=== PATIENT | male | born 1955 | race Caucasian/White ===

== ENCOUNTER → 2017-10-17 09:30 | Outpatient (CLI) | payer SELFPAY | PROVIDERS: Family Provider Family Medicine; PCP Family Medicine; Visit Provider Urology | DX: R97.20 Elevated prostate specific antigen [PSA] (principal) | CPT/HCPCS: 36415; 84153 ==

== ENCOUNTER → 2017-11-17 08:03 | Outpatient (CLI) | payer SELFPAY ==
--- NOTE | 2017-11-17 | IMM_PTH ---
PATIENT: HUEY LEMONS LOC: [facility] U#:[id number] AGE/SX: 70/M ROOM: RE11/17/[address]: Dr. Paulo Martin MD : 1955 BED: DIS: SPEC #: [id number] RECD: 11/21/17 11:57 STATUS: SAULO REJulio #: [id number] NERISSA: 11/17/17 00:[address]: Paulo Martin DEPT: IMMUNOHISTOCHEMISTRY RECD BY: Rosanne Parker ENTERED: 11/21/17 11:58 SP TYPE: IMMUNO OTHR DR: Dr. Roderick Saleh MD Tissues: A - PROSTATE RIGHT Procedures: P40 (add) 34BE12 (initial) PHYSICIAN & INSTITUTION [place] [id number] SPECIMEN INFORMATION: Tissue Source: A - Right prostate, apex, core biopsy Clinical Info: Elevated PSA Specimen Number: [id number] CPT code: 60463, 34880 METHODOLOGY: Deparaffinized sections of prefer/formalin-fixed tissue or PAP/DQ stained slides are incubated with monoclonal/polyclonal antibodies/oligonucleotide probes. Localization is made via biotin free immunoperoxidase method. Appropriate controls are performed and reacted as expected. Results on target cell population are indicated in the following table: RESULTS: ANTIBODY / CLONE RESULT Block A P40 (BC28) negative 34BE12 (34BE12) negative These tests were developed and their performance characteristics determined by [facility]. They may not have been cleared or approved by the U.S. Food and Drug Administration. The FDA has determined that such clearance or approval is not necessary. INTERPRETATION: A. Right prostate, apex, core biopsy: A minute focus of adenocarcinoma. SJ:lance 11/22/17
--- NOTE | 2017-11-17 11:45 | PROSBIL_PTH ---
PATIENT: HUEY LEMONS LOC: [facility] U#:[id number] AGE/SX: 70/M ROOM: RE11/17/[address]: Dr. Paulo Martin MD : 1955 BED: DIS: SPEC #: [id number] RECD: 11/17/17 18:27 STATUS: SAULO LOU #: [id number] NERISSA: 11/17/17 11:[address]: Paulo Martin DEPT: SURGICAL PATHOLOGY RECD BY: Juan J Acosta ENTERED: 11/18/17 09:29 SP TYPE: PROST BX GERMAN DR: Dr. Roderick Saleh MD Tissues: A - PROSTATE RIGHT B - PROSTATE RIGHT C - PROSTATE RIGHT D - PROSTATE LEFT E - PROSTATE LEFT F - PROSTATE LEFT Procedures: PROSTATE BX HEADER OPERATION: Prostate biopsy PRE-OP DIAGNOSIS: Elevated PSA TISSUE SUBMITTED: A - Right apex, B - Right mid, C - Right base, D - Left apex, E - Left mid, F - Left base MICROSCOPIC DIAGNOSIS A. Right prostate, apex, core biopsy: A minute focus of adenocarcinoma: Josette grade: 3+3=6 Number of cores involved: 1 out of 2 Proportion of tissue involved: <5% Perineural invasion: Not identified. Greatest tumor length: <1 mm Focal chronic inflammation and minimal acute inflammation. See comment. B. Right prostate, mid, core biopsy: Prostatic tissue, negative for malignancy. C. Right prostate, base, core biopsy: Prostatic tissue, negative for malignancy. Focal chronic inflammation. D. Left prostate, apex, core biopsy: Prostatic tissue, negative for malignancy. Focal chronic inflammation. E. Left prostate, mid, core biopsy: Prostatic tissue, negative for malignancy. Focal chronic inflammation. F. Left prostate, base, core biopsy: Prostatic tissue, negative for malignancy. Focal chronic inflammation. SJ:lance 11/21/17 COMMENT A. Immunohistochemistry ([id number]) supports the above diagnosis. MICROSCOPIC DESCRIPTION Slides are reviewed. GROSS DESCRIPTION A - Received is one container designated prostate, right apex. The specimen consists of two elongated fragments of light louis-white soft tissue each measuring 1.5 cm in length and 0.1 cm in diameter. The specimen is totally submitted in one cassette. B - Received is one container designated prostate, right mid. The specimen consists of two elongated fragments of light louis-white soft tissue each measuring 1.5 cm in length and 0.1 cm in diameter. The specimen is totally submitted in one cassette. C - Received is one container designated prostate, right base. The specimen consists of two elongated fragments of light louis-white soft tissue each measuring 1.5 cm in length and 0.1 cm in diameter. The specimen is totally submitted in one cassette. D - Received is one container designated prostate, left apex. The specimen consists of two elongated fragments of light louis-white soft tissue each measuring 1.5 cm in length and 0.1 cm in diameter. The specimen is totally submitted in one cassette. E - Received is one container designated prostate, left mid. The specimen consists of two elongated fragments of light louis-white soft tissue each measuring 1 cm in length and 0.1 cm in diameter. The specimen is totally submitted in one cassette. F - Received is one container designated prostate, left base. The specimen consists of two elongated fragments of light louis-white soft tissue each measuring 1.5 cm in length and 0.1 cm in diameter. The specimen is totally submitted in one cassette. / AM:lance 11/18/17 TC:0 CPT: 43436 x6
== END ==
LOC: LAB 11-18 08:08 → LABSPEC 11-18 08:08
PROVIDERS: Family Provider Family Medicine; PCP Family Medicine; Visit Provider Urology
DX: R97.20 Elevated prostate specific antigen [PSA] (principal)
CPT/HCPCS: 88305; 88341; 88342; G0416

== ENCOUNTER → 2019-01-01 08:20 | Outpatient (CLI) | payer SELFPAY ==
--- NOTE | 2019-01-01 08:48 | RAD_ITS ---
STUDY: X-RAY - RIGHT KNEE REASON FOR EXAM: Male, 63 years old. Knee pain and swelling TECHNIQUE: 4 view(s) of the knee. COMPARISON: None. FINDINGS: The knee is intact and located. There is mild decrease in medial compartment joint space. There is mild periarticular marginal osteophyte formation in the weightbearing compartments, moderate in the patellofemoral compartment. Mineralization is normal. There is a joint effusion. Soft tissues are otherwise unremarkable. RAD/Knee 4 or More Views IMPRESSION: Mild degenerative joint disease. Electronically Signed: Rachna Mendoza, at 16:14 EDT Tel , Service support ,
--- NOTE | 2019-01-01 08:48 | RAD_ITS ---
STUDY: X-RAY - CERVICAL SPINE REASON FOR EXAM: Male, 63 years old. History of fall 1996 Pain TECHNIQUE: 9 view(s) of the cervical spine were obtained. COMPARISON: None FINDINGS: There are degenerative changes of the anterior atlantoaxial articulation. The odontoid not fully visualized on the open-mouth views. Normal cervical lordosis. C5 C6 C6 C7 there is disc space narrowing spondylosis. There is mild narrowing of the right neural foramen at the level of C5-C6 there is facet arthropathy. Flexion extension views are provided with this series. There is no visualized loss of alignment with the flexion extension views provided. The soft tissue structures are unremarkable. RAD/Cerv Spine Obl/Flex/Ext Comp IMPRESSION: Multilevel level degenerative change especially at the level of C5-C6. No visualized radiographic evidence of instability with flexion and extension. Electronically Signed: Anneliese Wadsworth MD at 16:22 EDT Tel , Service support ,
--- NOTE | 2019-01-01 08:48 | RAD_ITS ---
STUDY: X-RAY - LUMBOSACRAL SPINE REASON FOR EXAM: Male, 63 years old. Fall from ladder 1995. Lower back pain and right leg pain. Right leg swelling. TECHNIQUE: 7 views including flexion and extension weightbearing views. COMPARISON: None FINDINGS: No acute intra-abdominal process is evident. Moderate distributed stool burden of large bowel unlikely to reflect constipation. Normal small bowel pattern. No significant degenerative features of the SI joints. Very slight lumbar levoscoliosis. Normal lordosis. Osteopenia. Normal vertebral body height and alignment to the neutral position. Flexion, no change in alignment, no abnormal motion. Extension, no change in alignment, no abnormal motion. Minimal disc degenerative features at L1-L2. Mild mid to low lumbar facet arthropathy L3-S1. RAD/L/S Spine w Bend Min 6 Vw IMPRESSION: Mild spondylosis. No evidence of abnormal spinal motion on flexion and extension views. Normal alignment in the neutral position. Electronically Signed: Juan J De La Garza MD at 16:18 EDT Tel , Service support ,
--- NOTE | 2019-01-01 08:50 | MRI_ITS ---
STUDY: MRI CERVICAL SPINE WITHOUT CONTRAST REASON FOR EXAM: Male, 63 years old. Left facial pain in right arm numbness. TECHNIQUE: Standardized fat and water weighted pulse sequences were obtained in the sagittal and axial planes. COMPARISON: None FINDINGS: Normal foramen magnum and brainstem-cervical cord junction. Normal craniovertebral junction. Normal anterior atlantoaxial articulation. Normal odontoid process. Normal cervical lordosis. Normal vertebral bodies and posterior osseous elements. C2-3: Normal endplates. Normal disc height, signal and morphology. Normal central canal and intervertebral neural foramina. C3-4: Normal endplates. Normal disc height, signal and morphology. Normal central canal and intervertebral neural foramina. C4-5: Disc desiccation and mild decreased disc space is noted. There is uncovertebral joint arthropathy resulting in moderate bilateral foraminal narrowing with small disc osteophyte complex. C5-6: Normal endplates. Normal disc height, signal and morphology. Normal central canal and intervertebral neural foramina. C6-7: Normal endplates. Normal disc height, signal and morphology. Normal central canal and intervertebral neural foramina. C7-T1: Normal endplates. Normal disc height, signal and morphology. Normal central canal and intervertebral neural foramina. Normal cervical cord. There is diffuse diffuse multilevel lymph nodes bilaterally predominantly within the level 5 region as seen on series 7 image 141 largest lymph node measuring 1.1 x 1.7 cm axially. There is lack of flow related enhancement within the left vertebral artery. MRI/Spine Cervical (Routine) IMPRESSION: 1. C5-6 mild degenerative change with uncovertebral joint arthropathy resulting in moderate bilateral foraminal narrowing, clinically correlate for C4 V nerve root radiculopathy. Otherwise no significant spinal canal narrowing or foraminal narrowing. 2. Diffuse cervical lymphadenopathy, further evaluation may be obtained with contrast CT neck and clinical correlation is underlying infiltrative neoplastic process is not excluded. 3. Lack of flow related enhancement within the left vertebral artery suggestive of stenosis versus occlusion, further evaluation may be obtained with cross-sectional MRA/CTA analysis. Electronically Signed: Les Hernandez DO at 11:31 EDT , Service support ,
--- NOTE | 2019-01-01 08:50 | MRI_ITS ---
STUDY: MRI LUMBAR SPINE WITHOUT CONTRAST REASON FOR EXAM: Male, 63 years old. Back pain radiating down the right leg. TECHNIQUE: Standardized fat and water weighted pulse sequences were obtained in the sagittal and axial planes. COMPARISON: None FINDINGS: T12-L1: Normal endplates. Normal disc height, hydration and morphology. Normal bilateral facet joints. Normal central canal and bilateral lateral recesses. Normal bilateral intervertebral neural foramina. Normal lumbar lordosis. There is no substantial scoliosis. Normal conus medullaris that terminates at the L1-2. L1-2: Mild decreased disc space and disc desiccation at this level with no significant spinal canal narrowing or foraminal narrowing. L2-3: Normal endplates. Normal disc height, hydration and morphology. Normal bilateral facet joints. Normal central canal and bilateral lateral recesses. Normal bilateral intervertebral neural foramina. L3-4: Normal endplates. Normal disc height, hydration and morphology. Normal bilateral facet joints. Normal central canal and bilateral lateral recesses. Normal bilateral intervertebral neural foramina. L4-5: Normal endplates. Normal disc height, hydration and morphology. Normal bilateral facet joints. Normal central canal and bilateral lateral recesses. Normal bilateral intervertebral neural foramina. L5-S1: Normal endplates. Normal disc height, hydration and morphology. Normal bilateral facet joints. Normal central canal and bilateral lateral recesses. Normal bilateral intervertebral neural foramina. Normal visualized sacral ala. Normal visualized paraspinous soft tissue structures. MRI/Spine Lumbar (Routine) IMPRESSION: No evidence of significant disc space loss, disc bulge, spinal canal narrowing or foraminal narrowing. Electronically Signed: Les Hernandez DO at 11:22 EDT , Service support ,
--- NOTE | 2019-01-01 09:34 | RAD_ITS ---
STUDY: X-RAY - ORBITS REASON FOR EXAM: Male, 63 years old. This study is being performed as a clearance examination for exclusion of orbital metal, prior to the performance of an MRI examination. TECHNIQUE: view(s) of the orbits were obtained. COMPARISON: None. FINDINGS: Normal bilateral orbits without a metallic orbital foreign body. Normal visualized facial bones. Normal paranasal sinuses. The soft tissue structures are unremarkable. RAD/Orbits for Foreign Body IMPRESSION: No demonstrated metallic orbital foreign body. The patient is cleared for an MRI examination. Electronically Signed: Jesenia Lawson, at 11:36 EDT Tel , Service support ,
== END ==
PROVIDERS: Family Provider Family Medicine; PCP Family Medicine; Referring Provider Family Medicine; Visit Provider Family Medicine
DX: M54.2 Cervicalgia (principal); M17.11 Unilateral primary osteoarthritis, right knee; M54.5 Low back pain
CPT/HCPCS: 70030; 72052; 72114; 72141; 72148; 73564

== ENCOUNTER 2020-02-08 09:28 | Day surgery (SDC) | payer SELFPAY ==
--- NOTE | 2020-02-07 10:06 | EKG12_ITS ---
Test Reason : PRE-OP Blood Pressure : / mmHG Vent. Rate : 075 BPM Atrial Rate : 075 BPM P-R Int : 168 ms QRS Dur : 086 ms QT Int : 390 ms P-R-T Axes : 047 -02 020 degrees QTc Int : 435 ms Normal sinus rhythm Normal ECG Confirmed by ANGELITO DON ([id number]), editor map JACKIE LEMONS ([id number]) on 02/08/2020 2:44:02 PM Referred By: Paulo Martin Confirmed By:ANGELITO DON
[2020-02-07 10:10] LABS: Hematocrit 36.9 % (40-54); Hemoglobin 11.7 g/dL (13.0-16.5); Mean Corp Hgb Conc 31.7 g/dL (32-36); Mean Corpuscular Hgb 29.6 pg (27.0-32.0); Mean Corpuscular Volume 93.4 fL (80-94); Mean Platelet Vol. 10.1 fl (6.2-12.0); POSITIVE COUNT YES; Platelet Count 179 K/mm3 (150-450); RBC Distribution Width CV 15.2 % (11.6-14.6); RBC Distribution Width SD 51.1 fl (35.1-43.9); Red Blood Count 3.95 M/mm3 (4.6-6.2)
[2020-02-07 10:14] LABS: Scan Indicated on CBC? Y/N YES- FLAGS NOTED
[2020-02-07 10:26] LABS: International Normalized Ratio 1.3; Partial Thromboplast Time 25.3 Seconds (24.1-36.2); Prothrombin Time (Protime)PT. 15.6 SECONDS (11.7-14.9)
[2020-02-07 10:53] LABS: AST(SGOT) 9 U/L (15-37); Alanine Aminotransfer ALT/SGPT 16 U/L (16-61); Albumin, Serum 3.4 g/dL (3.2-5.0); Alkaline Phosphatase 83 U/L (45-117); Anion Gap 3 (5-15); BUN 20 mg/dL (7-18); BUN/Creat Ratio 26.5 RATIO (10-20); Bilirubin, Direct 0.19 mg/dL (0.00-0.30); Calcium,Total 8.2 mg/dL (8.5-10.1); Chloride 107 mmol/L (98-107); Creatinine, Serum 0.75 mg/dL (0.70-1.30); EST Glomerular Filtration Rate 111 mL/min (>60); Est Glom Filt Rate - Afr Amer 134 mL/min (>60); Globulin 3.6 g/dL (2.2-4.2); Glucose 89 mg/dL (74-106); Potassium 4.1 mmol/L (3.5-5.1); Sodium Level 139 mmol/L (136-145)
[2020-02-07 11:39] LABS: White Blood Count 45.1 K/mm3 (4.4-11.0)
[2020-02-08] VITALS (12 sets, daily range): BP systolic 116–153; BP diastolic 72–95; PULSE 58–105; RESP 14–18; TEMP 36.6–37.3; O2SAT 90–100; BMI 31.4
--- NOTE | 2020-02-08 | PROS_PTH ---
PATIENT: HUEY LEMONS LOC: [facility] U#:[id number] AGE/SX: 64/M ROOM: RE02/08/[address]: Dr. Paulo Martin MD : 1955 BED: DIS: 02/09/2020 SPEC #: [id number] RECD: 02/08/20 14:10 STATUS: SAULO LOU #: [id number] NERISSA: 02/08/20 00:[address]: Paulo Martin DEPT: SURGICAL PATHOLOGY RECD BY: Wily Pena ENTERED: 02/11/20 08:18 SP TYPE: TURP GERMAN DR: Dr. Roderick Saleh MD Tissues: Prostate, NOS Procedures: Surgery Specimen Level IV HEADER OPERATION: Cysto, TUR prostate, [employer] PRE-OP DIAGNOSIS: BPH with lower urinary tract symptoms; frequency of micturition; retention of urine; nocturia TISSUE SUBMITTED: Prostate chips MICROSCOPIC DIAGNOSIS Prostate, transurethral resection: Benign nodular hyperplasia, glandular and stromal types. Chronic inflammation. AM:lance 02/12/20 MICROSCOPIC DESCRIPTION Slides are reviewed. GROSS DESCRIPTION Received is one container labeled with the patient's name and designated prostate tissue. The specimen consists of multiple irregular fragments of pink-louis, rubbery, soft tissue that in aggregate weigh 31.9 gm and measure in aggregate 8 x 7 x 3 cm. Correspondence Analyst tissue is submitted in 10 cassettes. / SJ:lance 02/11/20 TC:3 CPT: 81759
[2020-02-08] MEDS: Lactated Ringers 1,000 ML 100 ML IV (10:39)
[2020-02-08] MEDS: Cefazolin 2 GM in 0.9% Normal Saline 100 ML IV (11:42)
[2020-02-08 13:28] LABS: Pathologist Review Reviewed
--- NOTE | 2020-02-08 13:36 | PCM.HP.STD ---
History of Present Illness Date of Admission: 02/08/20 Chief Complaint: BPH with retention of urine The patient is a 64 year old male with a very large prostate about 120 g in size is developed retention of urine is failed medical therapy so organ to proceed with a transurethral resection of the prostate. Past Medical History Allergies No Known Allergies Allergy (Verified 02/08/20 10:15) Home Medications: Ambulatory Orders Medication Instructions Recorded Ibrutinib [Imbruvica] 420 mg PO DAILY 02/06/20 Warfarin [Coumadin (PBKC)] 7.5 mg PO DAILY 02/06/20 Surgical History: no surgical history Smoking Status: Never smoker Tobacco Use: Non-smoker Review of Systems Constitutional: Denies: Chills, Fever, Weight Change HEENT: Denies: Head Aches, Sinus Congestion, Sinus Drainage Cardiovascular: Denies: Chest Pain, Palpitations Respiratory: Denies: Cough, Shortness of breath at rest, Sputum production Gastrointestinal: Denies: Abdominal Pain, Nausea, Vomiting Genitourinary: Denies: Dysuria Musculoskeletal: Denies: Joint Pain, Joint Tenderness Skin: Denies: Rash, Wounds Neurological: Denies: Numbness, Tingling, Focal weakness Psychiatric: Denies: Anxiety, Depression, Homicidal Ideations, Suicidal Ideations Hematologic/ Lymphatic: Denies: Easy Bruising, Easy Bleeding VTE Information - Inpt Only VTE Present on Admission: No VTE Mechan Device Prophylaxis: SCD's - Physical Exam Vitals/I&O's: Vital Signs Temp Pulse Resp BP Pulse Ox 98.3 F 73 17 116/81 H 96 02/08/20 10:20 02/08/20 10:20 02/08/20 10:20 02/08/20 10:20 02/08/20 10:20 Oxygen Delivery Method Room Air Weight: 90.9 kg Body Mass Index (BMI) 31.4 General: Alert, Oriented x3, Cooperative HEENT: Atraumatic, PERRLA, EOMI, Normocephalic Neck: Supple, No JVD, Negative Carotid Bruits Lungs: Clear to auscultation, Normal air movement Cardiovascular: Regular rate, No murmurs Abdomen: Bowel Sounds Present, Soft, Non Tender Extremities: No edema, Capillary Refill Less than 3 Seconds Skin: No rashes, No breakdown Musculoskeletal: No Tenderness to Palpation of Joints or Extremities Neurological: Cranial nerves II-XII grossly intact Psych/Mental Status: Normal Affect, Appropriate Laboratory Results 02/07/20 09:58: Diff Path Review Reviewed 02/08/20 09:59: POC PT 17.0 H, INR 1.40 Current Medications Lactated Ringer's () 1,000 mls @ 100 mls/hr IV .Q10H JOSHUA Last Admin: 02/08/20 10:39 Dose: 100 mls/hr Documented by: Assessment/Plan Plan to proceed the transurethral resection of the prostate his Coumadin is on hold he had a DVT in his lower extremity in the calf.
--- NOTE | 2020-02-08 13:38 | DCINST_ITS ---
Discharge Diet: Light diet - advance as tolerated Discharge Activity: Return to Normal Activity Call your doctor if your incision/area has: Sudden Increased Bleeding Call your doctor if you observe: Fever of 101 or Higher Suture Line Care: Avoid Pulling/Pushing, Avoid Pinching/Bending Instructions: Transurethral Resection of the Prostate (TURP): Home Recovery Allergies/Adverse Reactions: Allergies No Known Allergies Allergy (Verified 02/08/20 10:15) Medications to take at Discharge Ibrutinib [Imbruvica] 420 mg PO DAILY 02/06/20 Warfarin [Coumadin (PBKC)] 7.5 mg PO DAILY 02/06/20 Ciprofloxacin [Cipro] 500 mg PO BID #14 tab 02/08/20 The following prescriptions were given: Ciprofloxacin [Cipro] 500 mg PO BID #14 tab Transmission Status: Pending to [facility] Orders to be completed after discharge: 12 Lead EKG [[facility]] Time Frame: 02/06/20, Facility: [facility], Location: Cardiovascular Services Primary Care Physician: Roderick Saleh MD [Primary Care Provider] - Test Results: Test results from this visit will be discussed in further detail at your follow- up appointment, if applicable. Please Follow Up With: Paulo Martin MD When: in 2 weeks, please call to make an appointment.
--- NOTE | 2020-02-08 13:43 | OP.PCM_ITS ---
Report of Operation Date of Procedure: 02/08/20 Pre-Operative Diagnosis: BPH with obstruction Post-Operative Diagnosis: Same Surgery/Procedure Performed:: Transurethral resection of the prostate Description of Surgical Findings:: 64-year-old male was taken back to the operating room at the smooth induction of general anesthesia he was placed in dorsolithotomy position, the penis and testicles are prepped and draped in usual sterile fashion, went into the bladder with a 26 Macanese continuous flow resectoscope he had an extremely large prostate, and check the bladder no tumors or stones seen within the bladder identified left and right ureteral orifice I then started resecting at the bladder neck worked my way back to the verumontanum I then resected the right lobe of the prostate and then resect the left lobe of the prostate this took a long time to resect the prostate over an hour and a half at the end of the resection Ellik out all the chips which over to the button I vaporized and smooth out the resection did a flow test had a nice wide open flow the sphincter appeared intact no flapping tissue wide open channel so at the end of the procedure placed catheter into the bladder we used the catheter guide to get past the bladder there was a small tear in the bladder neck just avoid the bladder neck. This is minimal tear with no consequence whatsoever but should heal on its own. I then put a catheter in the bladder three-way catheter on continuous irrigation and Ellik out the bladder and there is no chips or tumors within the bladder and then put on continuous bladder irrigation he was taken back to PACU good condition. Type of Anesthesia:: General Drains: 3 way - Admit VTE Documentation VTE Present on Admission: No VTE Mechan Device Prophylaxis: SCD's
[2020-02-08] MEDS: Lactated Ringers 1,000 ML 125 ML IV ×2 (13:56→20:10)
[2020-02-08] MEDS: Ondansetron 4 MG/2 ML Vial IV (15:56)
[2020-02-08] MEDS: Ciprofloxacin 400 MG/200 ML BAG 200 MG IV (23:47)
[2020-02-08] MEDS: Docusate Sodium 100 MG Capsule PO (23:51)
[2020-02-09] MEDS: Ibuprofen 600 MG Tablet PO (00:02)
[2020-02-09 05:07] VITALS: BP 114/68; PULSE 77; RESP 18; TEMP 37; O2SAT 92
[2020-02-09] MEDS: Lactated Ringers 1,000 ML 125 ML IV (05:25)
[2020-02-09 09:36] VITALS: PULSE 70
[2020-02-09] MEDS: Docusate Sodium 100 MG Capsule PO (10:38)
[2020-02-09] MEDS: Ciprofloxacin 400 MG/200 ML BAG 200 MG IV (10:38)
[2020-02-09] MEDS: Pantoprazole Sodium 40 MG Tablet PO (10:38)
== END 2020-02-09 13:16 | disposition home or self-care (01) ==
LOC: SDC 09:28 → AC 09:30 → MS3 10:53
PROVIDERS: Anesthesiology; PCP Family Medicine; Referring Provider Urology; Visit Provider Urology
PROC: (CPT 52601; principal; 2020-02-08 11:20)
DX: N40.1 Benign prostatic hyperplasia with lower urinary tract symptoms (principal); N13.8 Other obstructive and reflux uropathy; R33.9 Retention of urine, unspecified; R35.0 Frequency of micturition; R35.1 Nocturia; I69.398 Other sequelae of cerebral infarction; C91.10 Chronic lymphocytic leukemia of B-cell type not having achieved remission; G47.30 Sleep apnea, unspecified; Z96.0 Presence of urogenital implants; Z86.718 Personal history of other venous thrombosis and embolism; Z79.01 Long term (current) use of anticoagulants; Z91.19 Patient's noncompliance with other medical treatment and regimen; Z20.828 Contact with and (suspected) exposure to other viral communicable diseases
CPT/HCPCS: 00914; 52601; 36415; 36416; 80048; 80076; 85027; 85610; 85730; 87635; 88305; 93005; 94799; 99251; J7120; G0463; J0744; J2405; U0003

== ENCOUNTER 2020-02-15 10:22 | Inpatient (IN) | payer OTHER, SELFPAY ==
[2020-02-08 15:45] VITALS: BMI 31.4
[2020-02-15] VITALS (11 sets, daily range): BP systolic 108–150; BP diastolic 80–95; PULSE 74–145; RESP 16–18; TEMP 36.2–37.1; O2SAT 93–99; BMI 31.7; BMI 30.9
--- NOTE | 2020-02-15 10:30 | EKG12_ITS ---
Test Reason : CP ADMIT Blood Pressure : / mmHG Vent. Rate : 067 BPM Atrial Rate : 067 BPM P-R Int : 180 ms QRS Dur : 090 ms QT Int : 392 ms P-R-T Axes : 034 -01 015 degrees QTc Int : 414 ms Normal sinus rhythm Normal ECG When compared with ECG of 18-FEB-2020 14:38, MANUAL COMPARISON REQUIRED, DATA IS UNCONFIRMED Confirmed by ANGELITO DON ([id number]), medical editor GLENIS MORAES ([id number]) on 02/22/2020 10:34:42 AM Referred By: NOEMÍ Confirmed By:ANGELITO DON
[2020-02-15 10:39] LABS: Absolute Lymphocyte Count 52.69 X10^3/uL (0.83-4.51); Absolute Neutrophil Count 4.7 X10^3/uL (2.0-7.7); Basophil# 0.03 X10^3/uL; Basophil% 0.1 % (0-1); Eosinophil# 0.04 X10^3/uL; Eosinophils% 0.1 % (0-5); Hematocrit 36.8 % (40-54); Hemoglobin 11.8 g/dL (13.0-16.5); Lymphocyte # 52.69 X10^3/ul (4.0); Mean Corp Hgb Conc 32.1 g/dL (32-36); Mean Corpuscular Hgb 29.9 pg (27.0-32.0); Mean Corpuscular Volume 93.2 fL (80-94); Mean Platelet Vol. 10.4 fl (6.2-12.0); Monocyte# 0.34 X10^3/uL; Monocyte% 0.6 % (0-10); NRBC Flagged by Analyzer 0 % (0-5); Neutrophil # 4.69 X10^3/uL (2.7-7.7); POSITIVE COUNT YES; POSITIVE DIFFERENTIAL YES; POSITIVE MORPHOLOGY YES; Platelet Count 201 K/mm3 (150-450); RBC Distribution Width CV 15.4 % (11.6-14.6); RBC Distribution Width SD 50.4 fl (35.1-43.9); Red Blood Count 3.95 M/mm3 (4.6-6.2); White Blood Count 57.9 K/mm3 (4.4-11.0)
[2020-02-15 10:43] LABS: Differential Indicated SCAN CRITERIA MET
--- NOTE | 2020-02-15 10:44 | ED.VISSUMM ---
- ER Visit Summary Date of Service: 02/15/20 Chief Complaint: Palpitations accelerated heart rate History of Present Illness: The patient is a 64 M history of CLL, prior stroke and DVT on Coumadin. Patient had a TURP prostate procedure done a week ago. Was off his Coumadin just restarted today. Denies any cardiac history. No stents no pacemaker or prior CT. Said last night around midnight he started having palpitations elevated heart rate. No specific chest pain. No hemoptysis. Physical Examination: Older male no acute distress vital signs stable heart rate at times he is a regular rhythm that is in sinus and other times he appears either be in A. fib or a flutter. Rate as high as 145. HEENT exam unremarkable. No droop. Normal speech. Neck nontender no lymphadenopathy no JVD. Lungs clear to auscultation bilaterally. Heart tachycardic rate about 130. No murmur. Chest were nontender. Abdomen soft nontender. Patient moving all 4 extremities. Neurovascular intact. Calves are nontender without edema. Neurologically is awake and alert with no focal motor deficits. Test Results: EKG shows in some areas EKGs and a normal sinus rhythm rate of about 80 and then he has runs of tachycardia that appears to be regular this could either be atrial flutter or A. fib. There is no signs of CT or ischemia. Chest x-ray portable 1 view read by myself the radiologist shows no acute abnormality. Normal cardiac silhouette. CBC shows an elevated white count of 57,000 consistent with his history of CLL. Hemoglobin 11.8. Chemistries unremarkable gap of 1 creatinine 0.8. PT/INR 12 and 1 he just restarted his Coumadin today. He is subtherapeutic. Troponin normal. Emergency Department Course and Treatment: Patient with palpitations and on rhythm strip and exam is consistent with either A. fib RVR or a flutter. Undergo cardiac work-up. He is already on Coumadin. He will be admitted. Treatment Plan: Repeat exam patient is doing well at 11:34 AM. He is in and out of this rapid heart rate he is tolerating it well. I went in the room his heart rate was 135 appeared to be atrial flutter and then he quickly goes back into normal sinus rhythm. As of this time he is not received any Cardizem. Hospitalist on page for admission Disposition: Admission Impression: New onset A. fib RVR vs Atrial Flutter History of DVT just restarted on his Coumadin History of CLL Status post recent TURP procedure This note was generated with [employer] dictation software. It may contain incorrect words, spelling, and punctuation that were not noted in review of the chart prior to signing ED Disposition - Plan for ED Patient: Referrals: Roderick Saleh MD [Primary Care Provider] -
[2020-02-15 10:59] LABS: Anion Gap 1 (5-15); BUN 17 mg/dL (7-18); BUN/Creat Ratio 20.7 RATIO (10-20); Calcium,Total 8.6 mg/dL (8.5-10.1); Chloride 108 mmol/L (98-107); Creatinine, Serum 0.82 mg/dL (0.70-1.30); EST Glomerular Filtration Rate 101 mL/min (>60); Est Glom Filt Rate - Afr Amer 122 mL/min (>60); Estimated Creatinine Clearance 86.21 ml/min; Glucose 115 mg/dL (74-106); Potassium 4.1 mmol/L (3.5-5.1); Sodium Level 140 mmol/L (136-145)
--- NOTE | 2020-02-15 11:00 | RAD_ITS ---
STUDY: X-RAY CHEST REASON FOR EXAM: Male, 64 years old. CHEST PAIN, IRREGULAR HEART RATE TECHNIQUE: Single AP portable view of the chest. COMPARISON: None. FINDINGS: EKG electrodes are seen. The lungs are clear and expanded. There is no demonstrated pleural abnormality. Normal size heart. Normal mediastinum and elias. Normal visualized pulmonary arteries. There is atherosclerotic calcification of the aortic arch with tortuosity. There are diffuse degenerative changes of the visualized thoracic spine. Normal visualized ribs, clavicles, and shoulders. There is no demonstrated abnormality of the visualized soft tissue structures of the upper abdomen. RAD/Chest 1 View (Portable) IMPRESSION: No acute parenchymal disease. Electronically Signed: Shayne Richard, at 11:15 EDT , Service support ,
[2020-02-15 11:15] LABS: Prothrombin Time (Protime)PT. 12.7 SECONDS (11.7-14.9)
--- NOTE | 2020-02-15 11:54 | NURSING ---
DR BLANCAS FOR DR ACKERMAN
--- NOTE | 2020-02-15 11:54 | NURSING ---
PCU NEW ONSET OF AFIB, CLL HX, HX OF DVT YONNY
[2020-02-15] MEDS: dilTIAZem CD 120 MG Capsule PO ×2 (12:18→22:36)
--- NOTE | 2020-02-15 12:31 | ECHOD_ITS ---
Reason For Study: Afib, Aflutter Procedure This was a 2D Doppler, Color Flow transthoracic echocardiogram. The study was technically difficult. Exam performed portable in patient room. Left Ventricle Normal LV size. Mild concentric left ventricular hypertrophy. Left ventricular systolic function is normal. The estimated ejection fraction is 65 %. Diastolic function is indeterminate. No regional wall motion abnormalities noted. Right Ventricle Normal RV size. Normal systolic function. Atria Normal left atrium. Normal right atrium. No doppler evidence for ASD. Mitral Valve There is mild to moderate mitral annular calcification. Extension of the mitral annular calcification onto the base of the posterior mitral valve leaflet. Trivial mitral valve insufficiency. Tricuspid Valve Normal tricuspid valve. Trivial tricuspid valve insufficiency. Unable to estimate RV systolic pressure/pulmonary artery pressure due to technically difficult study. Aortic Valve Trisinus/trileaflet aortic valve. Mild diffuse aortic valve thickening. Moderate diffuse aortic valve calcification. Mild aortic stenosis. Trivial aortic valve insufficiency. Pulmonic Valve The pulmonic valve is not well visualized. Trivial pulmonic valve insufficiency. Great Vessels Normal sized aortic root. Pericardium/Pleural No pericardial effusion. MMode/2D Measurements & Calculations LVIDd: 4.3 cm IVSd: 1.4 cm LVOT diam: 2.2 cm LVIDs: 3.0 cm LVPWd: 1.4 cm LVOT area: 3.8 cm2 RVDd: 3.7 cm FS: 31.5 % Ao root diam: 3.4 cm LAV(MOD-bp): 52.7 ml LA A4 area: 18.4 cm2 LAV(MOD-bp) Indexed: 25.9 ml/m2 LAV(MOD-sp2): 60.2 ml LAV(MOD-sp4): 47.2 ml LA dimension(2D): 3.4 cm RA A4 area: 14.1 cm2 Doppler Measurements & Calculations MV E max jayjay: 71.0 cm/sec Lat Peak E' Jayjay: 9.3 cm/sec Med Peak E' Jayjay: 6.8 cm/sec MV A max jayjay: 74.0 cm/sec E/E' lat: 7.6 E/E' med: 10.4 MV E/A: 0.96 Ao V2 max: 257.4 cm/sec LV V1 max: 92.9 cm/sec SV(LVOT): 69.4 ml Ao max P.5 mmHg LV V1 max P.4 mmHg Ao V2 mean: 185.8 cm/sec LV V1 mean P.7 mmHg Ao mean P.1 mmHg LV V1 mean: 61.3 cm/sec Ao V2 VTI: 50.1 cm LV V1 VTI: 18.1 cm LISA(I,D): 1.4 cm2 LISA(V,D): 1.4 cm2 PA V2 max: 97.3 cm/sec Interpretation Summary Left ventricular systolic function is normal. The estimated ejection fraction is 65 %. Mild concentric left ventricular hypertrophy. There is mild to moderate mitral annular calcification. Extension of the mitral annular calcification onto the base of the posterior mitral valve leaflet. Trivial mitral valve insufficiency. Trivial tricuspid valve insufficiency. Mild aortic stenosis. Trivial aortic valve insufficiency. Trivial pulmonic valve insufficiency. Unable to estimate RV systolic pressure/pulmonary artery pressure due to technically difficult study. Diastolic function is indeterminate. Ordering Physician: Felix Gaines Referring Physician: Roderick Saleh Performed By: Kalyn Cordero, KAITLYNN, RVT
--- NOTE | 2020-02-15 17:00 | PCM.HP.STD ---
History of Present Illness Date of Admission: 02/15/20 Chief Complaint: Palpitations The patient is a 64 year old M with a PMH as below who presents from home with palpitations. He says that he is noticed previously that he would have elevated heart rates but it was never this inconsistent. He states at some point he was sitting in the 70s and then he would jump up to the 140s and he would go back down into a normal heart rate. He does have a history of CLL as well as a prior stroke and a DVT and therefore he is been on Coumadin. He recently did have a TURP and has been off of his Coumadin but restarted it today. He denies any lightheadedness or dizziness with this episode of tachycardia however he did have a little bit of chest pressure when he was in the 140s. He had an episode of lightheadedness a few days ago but he does not remember anything specific that was associated with that lightheadedness. On admission to the ER he did have a normal troponin, his white count was elevated consistent with his diagnosis of CLL. It is unsure in the ER what his heart rhythm was, it is possible new onset A. fib, unlikely to be a flutter with RVR. Unfortunately he was unable to undergo a drip because every time they tried to start the Cardizem drip he would go from being tachycardic to a normal rhythm therefore he was given a dose of Cardizem 120 mg p.o. in the ER prior to transferring to the floor. Past Medical History Allergies No Known Allergies Allergy (Verified 02/15/20 10:24) Home Medications: Ambulatory Orders Medication Instructions Recorded Ibrutinib [Imbruvica] 420 mg PO DAILY 02/06/20 Warfarin [Coumadin ([facility])] 5 mg PO DAILY 02/06/20 Surgical History: total knee arthroplasty, TURP Smoking Status: Never smoker Alcohol: None Drugs: None - *Family History Maternal History Items: Heart Disease Paternal History Items: No pertinent history Review of Systems Constitutional: Denies: Chills, Fever, Weight Change HEENT: Denies: Head Aches, Sinus Congestion, Sinus Drainage Cardiovascular: Reports: Chest Pressure - With palpitations, Palpitations. Denies: Chest Pain Respiratory: Denies: Cough, Shortness of breath at rest, Sputum production Gastrointestinal: Denies: Abdominal Pain, Nausea, Vomiting Genitourinary: Denies: Dysuria Musculoskeletal: Denies: Joint Pain, Joint Tenderness Skin: Denies: Rash, Wounds Neurological: Denies: Numbness, Tingling, Focal weakness Psychiatric: Denies: Anxiety, Depression Hematologic/ Lymphatic: Denies: Easy Bruising, Easy Bleeding VTE Information - Inpt Only VTE Present on Admission: No - Physical Exam Vitals/I&O's: Vital Signs Temp Pulse Resp BP Pulse Ox 98.6 F 86 16 129/86 H 98 02/15/20 13:00 02/15/20 15:04 02/15/20 13:00 02/15/20 13:00 02/15/20 13:00 Oxygen Delivery Method Room Air Weight: 197 lb 5.019 oz Body Mass Index (BMI) 30.9 General: Alert, Oriented x3, Cooperative, No apparent distress HEENT: Atraumatic, PERRLA, EOMI, Normocephalic Oral: Moist Mucosa Neck: Supple, No JVD Lungs: Clear to auscultation, Normal air movement, No rhonchi, No wheeze, No rales Cardiovascular: Regular rate - Irregular rhythm, Normal S1, Normal S2, Murmur - 2/6 TEVIN LUSB Abdomen: Soft, Non Tender, Non-Distended, No Hepato-splenomegaly Extremities: No edema, Capillary Refill Less than 3 Seconds Skin: No rashes, No breakdown Neurological: Neuro grossly intact, Sensory exam intact to light touch and pain Psych/Mental Status: Normal Affect, Appropriate Laboratory Results 02/15/20 10:30: WBC 57.9 H*, RBC 3.95 L, Hgb 11.8 L, Hct 36.8 L, MCV 93.2, MCH 29.9, MCHC 32.1, RDW Std Deviation 50.4 H, RDW Coeff of Diogo 15.4 H, Plt Count 201, MPV 10.4, Immature Gran % (Auto) 0.200, Neut % (Auto) 8.0 L, Lymph % (Auto) 91.0 H, [place] % (Auto) 0.6, Eos % (Auto) 0.1, Baso % (Auto) 0.1, Absolute Neuts (auto) 4.7, Absolute Lymphs (auto) 52.69 H, Nucleated RBC % 0, Diff Path Review November02/15/20 10:30: Sodium 140, Potassium 4.1, Chloride 108 H, Carbon Dioxide 31.0, Anion Gap 1 L, BUN 17, Creatinine 0.82, Estim Creat Clear Calc 86.21, Est GFR (MDRD) Af Amer 122, Est GFR (MDRD) Non-Af 101, BUN/Creatinine Ratio 20.7 H, Glucose 115 H, Calcium 8.6, Troponin I < 0.015 02/15/20 10:30: PT 12.7, INR 1.0 Current Medications Acetaminophen (Tylenol) 650 mg PO Q6H PRN PRN PRN Reason: Pain Score 1-10/Temp > 100.7 F Diltiazem HCl (Cardizem Cd) 120 mg PO Q12 JOSHUA Melatonin (Melatonin) 3 mg PO QHS PRN PRN PRN Reason: INSOMNIA Ondansetron HCl (Zofran) 4 mg IV Q8H PRN PRN PRN Reason: NAUSEA/VOMITING Sodium Chloride () 10 - 40 ml IV UD PRN PRN Reason: SALINE FLUSH Assessment/Plan 1. Palpitations -EKG is difficult to interpret, he has some areas of a narrow QRS that are regular but rapid into the 140s/150s and he has areas with this normal sinus with a first-degree AV block and then randomly dropped QRS -We will obtain an echo and consult cardiology for evaluation and assistance -We will start him on Cardizem 120 mg p.o. twice daily -He is already anticoagulated for his history of DVT, will continue with his Coumadin INR is 1 but he did take his first dose this morning so we will monitor -He states that he has a known murmur and that he has had an extensive cardiac work-up done in [place] though he does not remember the specific results 2. CLL -Continue with ibrutinib, he can bring it in from home -White count is stable 3. TOÑO -He is on CPAP at home which we can continue here -He states that he does wake up in the middle the night and wakes up in the morning not feeling rested therefore he he may need to have another titration study as an outpatient DVT: Coumadin Inpatient E&M: 43904 Init Hosp L2
--- NOTE | 2020-02-15 18:12 | CON.PCM_ITS ---
Problem List (1) Cardiac arrhythmia Status: Acute (2) Cardiac murmur Status: Chronic (3) TOÑO (obstructive sleep apnea) Status: Chronic (4) Thromboembolism Status: Chronic (5) CLL (chronic lymphocytic leukemia) Status: Chronic Reason for Consult Date of Consultation: 02/15/20 History of Present Illness: The patient is a 64 year old male who is referred for evaluation of concerns of underlying cardiac dysrhythmias imposed upon obstructive sleep apnea, thromboembolism with history of DVT/PE, and CLL status post recent TURP. He states that he noted yesterday to today that he was sensing and intermittent fast heartbeat. Thus he elected to present for further evaluation. He states he does not recall any cardiac diagnosis other than a cardiac murmur nor does he recall undergoing cardiac evaluation in the past, however, after further thought he states he may have had an echocardiogram performed and an exercise tolerance test/imaging study performed at [facility] in [place], [place], in the past. To the best of his knowledge no studies were unremarkable. He states that he has felt his heartbeat going faster intermittently. He has not had any other concerning chest discomfort or acute shortness of breath/dyspnea. There has been no report of orthopnea or PND or peripheral pitting edema. He has had no near syncope or syncope. He presented to the emergency [place] for further evaluation. His troponin I level is negative. Chest x-ray suggested no acute cardiopulmonary disease process. His ECG demonstrated sinus rhythm with concerns of sinus tachycardia versus a possible ectopic atrial tachycardia. Cardiac rhythm strips were reviewed by the ED staff which raise questions as to whether or not he may have paroxysmal atrial fibrillation and/or paroxysmal atrial flutter. He was subsequently placed in the PCU for further evaluation. There he has had episodes of sinus rhythm and episodes of a narrow complex tachycardia raising concerns of possible ectopic atrial tachycardia, however, he does have episodes with significant somatic/motion artifact and thus paroxysmal atrial fibrillation cannot necessarily be excluded. He will then have spontaneous return to sinus rhythm. [] Past Medical History Allergies/Adverse Reactions: Allergies No Known Allergies Allergy (Verified 02/15/20 10:24) Home Medications: Ambulatory Orders Medication Instructions Recorded Ibrutinib [Imbruvica] 420 mg PO DAILY 02/06/20 Warfarin [Coumadin ([facility])] 7.5 mg PO DAILY 02/06/20 Past Medical History (Chronic Problems): Chronic Problems TOÑO (obstructive sleep apnea) (Chronic) Thromboembolism (Chronic) CLL (chronic lymphocytic leukemia) (Chronic) Cardiac murmur (Chronic) Surgical History: total knee arthroplasty, TURP - *Family History Maternal History Items: Heart Disease Paternal History Items: No pertinent history Lives: Spouse/ Significant Other Smoking Status: Never smoker Alcohol: None Drugs: None Subjectve: This is a 64-year-old white male appears resting comfortably at the moment in no acute distress. Objective: Vital Signs Temp Pulse Resp BP Pulse Ox 98.7 F 86 18 140/80 H 99 02/15/20 17:46 02/15/20 17:46 02/15/20 17:46 02/15/20 17:46 02/15/20 17:46 Oxygen Delivery Method Room Air Weight: 197 lb 5.019 oz Body Mass Index (BMI) 30.9 Intake and Output for Last 24 Hours 02/13/20 02/14/20 02/15/20 23:59 23:59 23:59 Intake Total 600 / 600 Balance 600 / 600 General: Awake, Alert, Oriented x 3, Cooperative, No Acute Distress HEENT: Atraumatic, Normocephalic, PERRL, EOMI, Sclera Non Icteric Neck: Supple, Good ROM, No JVD Lungs: Clear to auscultation Cardiovascular: Regular Rhythm, Premature Ectopic Beats, Normal S1, Normal S2 Vascular: No Carotid Bruits Abdomen: Bowel Sounds Present, Soft Extremities: No Cyanosis, No Clubbing, No edema Neurological: No Focal Motor or Sensory Deficit Psych/Mental Status: Appropriate 02/15/20 10:30: WBC 57.9 H*, RBC 3.95 L, Hgb 11.8 L, Hct 36.8 L, MCV 93.2, MCH 29.9, MCHC 32.1, Plt Count 201, MPV 10.4, Immature Gran % (Auto) 0.200, Neut % (Auto) 8.0 L, Lymph % (Auto) 91.0 H, [place] % (Auto) 0.6, Eos % (Auto) 0.1, Baso % (Auto) 0.1, Absolute Neuts (auto) 4.7, Nucleated RBC % 0 02/15/20 10:30: Sodium 140, Potassium 4.1, Chloride 108 H, Carbon Dioxide 31.0, Anion Gap 1 L, BUN 17, Creatinine 0.82, Est GFR (MDRD) Af Amer 122, Est GFR (MDRD) Non-Af 101, BUN/Creatinine Ratio 20.7 H, Glucose 115 H, Calcium 8.6, Troponin I < 0.015 02/15/20 10:30: PT 12.7, INR 1.0 Rhythm: As noted above EKG: As noted above CXR: Assessment/Plan 1. Cardiac dysrhythmia The patient has symptoms of palpitations. He has been found to have evidence of paroxysmal supraventricular tachycardias raising concerns of possible ectopic atrial tachycardia although paroxysmal atrial fibrillation cannot necessarily be excluded (based upon cardiac dysrhythmias occurring superimposed upon underlying somatic/motion artifact). This is superimposed upon his history of obstructive sleep apnea, thromboembolic disease with history of DVT/PE, CLL, and his recent TURP. He is going to be monitored. His laboratory studies are being reviewed. An echocardiogram has been requested to evaluate his valvular anatomy and physiology as well as his cardiac chamber size and function. He will initiate medical therapy. It may be reasonable to consider an agent such as a calcium channel antagonist to assist with his rate and rhythm control. Also, he has been on anticoagulant therapy in the past. This will be reinitiated for him. An attempt will be made to retrieve his previous medical records from an outside hospital for continuity of care purposes. 2. Cardiac murmur He does have a cardiac murmur on examination. He appears to be aware of this. He does not know the details. He is not sure whether this is been evaluated in the past or not. He will will have an echocardiogram to assess his valvular anatomy and physiology. 3. TOÑO He does have a history of TOÑO. He will continue his evaluation care by his primary care physician and his device use. 4. 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 His anticoagulation was recently interrupted for his TURP. He is being restarted on his anticoagulant therapy. 5. CLL He does have a history of CLL. He continues to follow with Dr. Ortega of [facility] hematology oncology. Comment: The above was discussed with the patient, spouse, and Dr. Gaines. This note was generated using a voice recognition system and there may be incorrect words, spelling or punctuation that were not noted when reviewing the office note prior to saving.
[2020-02-15] MEDS: Ciprofloxacin 500 MG Tablet PO (22:36)
[2020-02-16] VITALS (13 sets, daily range): BP systolic 108–126; BP diastolic 64–85; PULSE 67–140; RESP 16; TEMP 36.5–36.9; O2SAT 92–95
[2020-02-16 06:29] LABS: Absolute Lymphocyte Count 46.03 X10^3/uL (0.83-4.51); Absolute Neutrophil Count 4.5 X10^3/uL (2.0-7.7); Basophil# 0.01 X10^3/uL; Eosinophil# 0.07 X10^3/uL; Eosinophils% 0.1 % (0-5); Hematocrit 37.7 % (40-54); Hemoglobin 11.7 g/dL (13.0-16.5); Lymphocyte # 46.03 X10^3/ul (4.0); Lymphocyte % 90.4 % (19-41); Mean Corpuscular Hgb 29.1 pg (27.0-32.0); Mean Corpuscular Volume 93.8 fL (80-94); Mean Platelet Vol. 10.6 fl (6.2-12.0); Monocyte# 0.29 X10^3/uL; Monocyte% 0.6 % (0-10); NRBC Flagged by Analyzer 0 % (0-5); Neutrophil # 4.45 X10^3/uL (2.7-7.7); Neutrophil % 8.7 % (47-70); POSITIVE COUNT YES; POSITIVE DIFFERENTIAL YES; POSITIVE MORPHOLOGY YES; Platelet Count 192 K/mm3 (150-450); RBC Distribution Width CV 15.7 % (11.6-14.6); Red Blood Count 4.02 M/mm3 (4.6-6.2)
[2020-02-16 06:31] LABS: Differential Indicated SCAN CRITERIA MET; White Blood Count 50.9 K/mm3 (4.4-11.0)
[2020-02-16 06:44] LABS: International Normalized Ratio 1.1; Prothrombin Time (Protime)PT. 13.6 SECONDS (11.7-14.9)
[2020-02-16 07:09] LABS: Anion Gap 4 (5-15); BUN 17 mg/dL (7-18); Calcium,Total 8.7 mg/dL (8.5-10.1); Chloride 106 mmol/L (98-107); Creatinine, Serum 0.77 mg/dL (0.70-1.30); EST Glomerular Filtration Rate 108 mL/min (>60); Est Glom Filt Rate - Afr Amer 130 mL/min (>60); Estimated Creatinine Clearance 91.81 ml/min; Glucose 103 mg/dL (74-106); Potassium 4.4 mmol/L (3.5-5.1); Sodium Level 141 mmol/L (136-145); Thyroid Stim Hormone (TSH) 2.31 uIU/mL (0.358-3.74)
[2020-02-16 07:59] LABS: Differential Comment SCANNED; Reactive Lymphocyte 2+
[2020-02-16] MEDS: dilTIAZem CD 120 MG Capsule PO (09:01)
[2020-02-16] MEDS: Ciprofloxacin 500 MG Tablet PO (09:01)
--- NOTE | 2020-02-16 10:25 | CASEMGMT ---
RN DAVID Face to Face with patient for initial transition planning/care coordination assessment. RN CM introduced self and role at [facility]. Patient sitting in chair, alert and oriented. Patient willing to participate in assessment and is able to answer all questions appropriately. Care providers, pharmacy, and demographics verified. Patient wishes to discharge home, denies need for home health at this time. Patient states he has no further needs or concerns at this time. CM to follow for discharge planning needs that may arise. PCP: Delfino Specialists: Shannon, oncologist Preferred Pharmacy: [facility] Insurance: [employer] Prescription Benefit: none Living Will/HPOA: yes, Rachael He LNOK: Living Arrangements: Patient lives with in a 2 story home with bed and bath on first floor. No step to enter the home. Patient states he is independent at home. Transportation: Driving service DME/HHC: Patient denies DME or previous HHC Disposition Plan: Patient to discharge home with family support and follow-up plans in place. Melody MONTEJO, RN, CM
--- NOTE | 2020-02-16 12:22 | PN.CARD_ITS ---
Subjectve: The patient is awake and alert. He denies any palpitations, sensation of dizziness/lightheadedness, sensation of near syncope or syncope, or other ob vious symptoms this morning. He does state that since he has been home since his TURP surgery while in the shower he did feel somewhat lightheaded and admitted that he was not sure he was going to make it out of the shower . He did not lose consciousness. He attributed this to being post surgery and being up and in the shower. He does not recall whether he had any sensation of any type of irregular heartbeat at the time. Objective: Vital Signs Temp Pulse Resp BP Pulse Ox 98.1 F 83 16 113/72 94 02/16/20 08:59 02/16/20 08:59 02/16/20 08:59 02/16/20 08:59 02/16/20 08:59 Oxygen Delivery Method Room Air Weight: 197 lb 5.019 oz Body Mass Index (BMI) 30.9 Intake and Output for Last 24 Hours 02/14/20 02/15/20 02/16/20 23:59 23:59 23:59 Intake Total 1000 / 1000 600 / 600 Balance 1000 / 1000 600 / 600 General: Awake, Alert, Oriented x 3, Cooperative, No Acute Distress HEENT: Atraumatic, Normocephalic, PERRL, EOMI, Sclera Non Icteric Neck: Supple, Good ROM, No JVD Lungs: Clear to auscultation Cardiovascular: Regular Rhythm, Normal S1, Normal S2 Murmur Murmur: Grade 3/6, Mid Systolic, Crescendo-Decrescendo, LVOT, Sternal Notch Abdomen: Bowel Sounds Present, Soft Extremities: No edema Neurological: No Focal Motor or Sensory Deficit Psych/Mental Status: Appropriate 02/16/20 05:56: WBC 50.9 H*, RBC 4.02 L, Hgb 11.7 L, Hct 37.7 L, MCV 93.8, MCH 29.1, MCHC 31.0 L, Plt Count 192, MPV 10.6, Immature Gran % (Auto) 0.200, Neut % (Auto) 8.7 L, Lymph % (Auto) 90.4 H, [place] % (Auto) 0.6, Eos % (Auto) 0.1, Baso % (Auto) 0.0, Absolute Neuts (auto) 4.5, Nucleated RBC % 0 02/16/20 05:56: PT 13.6, INR 1.1 02/16/20 05:56: Sodium 141, Potassium 4.4, Chloride 106, Carbon Dioxide 31.0, Anion Gap 4 L, BUN 17, Creatinine 0.77, Est GFR (MDRD) Af Amer 130, Est GFR (MDRD) Non-Af 108, BUN/Creatinine Ratio 22.0 H, Glucose 103, Calcium 8.7 Rhythm: Sinus rhythm; episodes of narrow complex tachycardia potentially compatible with an ectopic atrial tachycardia; an episode of wide-complex tachycardia compatible with nonsustained ventricular tachycardia. ECHO: Interpretation Summary Left ventricular systolic function is normal. The estimated ejection fraction is 65 %. Mild concentric left ventricular hypertrophy. There is mild to moderate mitral annular calcification. Extension of the mitral annular calcification onto the base of the posterior mitral valve leaflet. Trivial mitral valve insufficiency. Trivial tricuspid valve insufficiency. Mild aortic stenosis. Trivial aortic valve insufficiency. Trivial pulmonic valve insufficiency. Unable to estimate RV systolic pressure/pulmonary artery pressure due to technically difficult study. Diastolic function is indeterminate. Medical Necessity - Tobacco Use Smoking Status: Never smoker Assessment/Plan 1. Cardiac dysrhythmia The patient has symptoms of palpitations. He has been found to have evidence of paroxysmal supraventricular tachycardias raising concerns of possible ectopic atrial tachycardia although paroxysmal atrial fibrillation cannot necessarily be excluded (based upon cardiac dysrhythmias occurring superimposed upon underlying somatic/motion artifact). He is also now been found to have an episode earlier today concerning for wide- complex tachycardia concerning for nonsustained ventricular tachycardia. He does not recall having any obvious symptoms when this occurred. This is superimposed upon his history of obstructive sleep apnea, thromboembolic disease with history of DVT/PE, CLL, and his recent TURP. He is going to be monitored. His laboratory studies are being reviewed. He has undergone evaluation with a transthoracic echocardiogram. The results are as noted. He will initiate medical therapy. He was started on a calcium channel antagonist for his narrow complex cardiac dysrhythmia. However noting his wide- complex cardiac dysrhythmia may be reasonable to alter this to a beta-srinivas. Also it was felt with his recent symptoms and now noticing an episode of wide- complex tachycardia that he should be further assessed for any obvious underlying CAD that may be contributing to his findings. This was thought to be with diagnostic cardiac catheterization. The procedure and risks were discussed with him. He is going to consider his options as to whether he wants to proceed in this manner versus conservative medical management and outpatient monitoring. 2. Cardiac murmur He does have a cardiac murmur on examination. Based upon his echocardiogram it appears this is compatible with underlying aortic disorder/aortic stenosis. This will need to be monitored and followed over time. 3. TOÑO He does have a history of TOÑO. He will continue his evaluation care by his primary care physician and his device use. 4. 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 His anticoagulation was recently interrupted for his TURP. He is being restarted on his anticoagulant therapy. 5. CLL He does have a history of CLL. He continues to follow with Dr. Ortega of [facility] hematology oncology. Comment: The above was discussed with the patient, spouse, and Dr. Gaines. This note was generated using a voice recognition system and there may be incorrect words, spelling or punctuation that were not noted when reviewing the office note prior to saving.
[2020-02-16] MEDS: Metoprolol Tartrate 50 MG Tablet PO ×2 (14:20→21:17)
[2020-02-16] MEDS: Aspirin 81 MG TAB.CHEW PO (15:24)
--- NOTE | 2020-02-16 15:50 | PN_ITS ---
Patient Problems: Active and Suspected Problems Cardiac arrhythmia (Acute) Subjective: Doing well, no issues overnight. No longer feels any palpitations. Vitals/I&O's: Vital Signs Temp Pulse Resp BP Pulse Ox 98.3 F 80 16 121/72 H 95 02/16/20 15:21 02/16/20 15:21 02/16/20 15:21 02/16/20 15:21 02/16/20 15:21 Oxygen Delivery Method Room Air Weight: 197 lb 5.019 oz Body Mass Index (BMI) 30.9 Intake and Output for Last 24 Hours 02/14/20 02/15/20 02/16/20 23:59 23:59 23:59 Intake Total 1000 / 1000 600 / 600 Balance 1000 / 1000 600 / 600 General: Alert, Oriented x3, Cooperative, No apparent distress HEENT: Atraumatic, PERRLA, EOMI, Normocephalic Oral: Moist Mucosa Neck: Supple, No JVD Lungs: Clear to auscultation, Normal air movement, No rhonchi, No wheeze, No rales Cardiovascular: Regular rate - Irregular rhythm, Normal S1, Normal S2, Murmur - 2/6 TEVIN LUSB Abdomen: Soft, Non Tender, Non-Distended, No Hepato-splenomegaly Extremities: No edema, Capillary Refill Less than 3 Seconds Skin: No rashes, No breakdown Neurological: Neuro grossly intact, Sensory exam intact to light touch and pain Psych/Mental Status: Normal Affect, Appropriate Laboratory Results 02/16/20 05:56: WBC 50.9 H*, RBC 4.02 L, Hgb 11.7 L, Hct 37.7 L, MCV 93.8, MCH 29.1, MCHC 31.0 L, RDW Std Deviation 52.0 H, RDW Coeff of Diogo 15.7 H, Plt Count 192, MPV 10.6, Immature Gran % (Auto) 0.200, Neut % (Auto) 8.7 L, Lymph % (Auto) 90.4 H, Tate % (Auto) 0.6, Eos % (Auto) 0.1, Baso % (Auto) 0.0, Absolute Neuts (auto) 4.5, Absolute Lymphs (auto) 46.03 H, Nucleated RBC % 0, Differential Comment SCANNED, Diff Path Review May foll, Reactive Lymphocytes 2+ 02/16/20 05:56: PT 13.6, INR 1.1 02/16/20 05:56: Sodium 141, Potassium 4.4, Chloride 106, Carbon Dioxide 31.0, Anion Gap 4 L, BUN 17, Creatinine 0.77, Estim Creat Clear Calc 91.81, Est GFR (MDRD) Af Amer 130, Est GFR (MDRD) Non-Af 108, BUN/Creatinine Ratio 22.0 H, Glucose 103, Calcium 8.7, TSH 2.31 Current Medications Acetaminophen (Tylenol) 650 mg PO Q6H PRN PRN PRN Reason: Pain Score 1-10/Temp > 100.7 F Aspirin (Aspirin, Baby) 81 mg PO DAILY@0800 COUNT INCLUDES THE [facility] Last Admin: 02/16/20 15:24 Dose: 81 mg Documented by: Sodium Chloride () 1,000 mls @ 15 mls/hr IV .Q48H COUNT INCLUDES THE [facility] Melatonin (Melatonin) 3 mg PO QHS PRN PRN PRN Reason: INSOMNIA Metoprolol Tartrate (Lopressor (Beta Ric)) 50 mg PO BID COUNT INCLUDES THE [facility] Last Admin: 02/16/20 14:20 Dose: 50 mg Documented by: Ondansetron HCl (Zofran) 4 mg IV Q8H PRN PRN PRN Reason: NAUSEA/VOMITING Sodium Chloride () 10 - 40 ml IV UD PRN PRN Reason: SALINE FLUSH STROKE Vital Signs/Narrative: Vital Signs Temp Pulse Resp BP BP Pulse Ox 02/16/20 15:21 98.3 F 80 16 121/72 H 95 02/16/20 15:03 67 02/16/20 14:20 75 02/16/20 14:17 75 122/69 H Medical Necessity - Tobacco Use Smoking Status: Never smoker Assessment/Plan All Active Problems Cardiac arrhythmia (Acute) 1. Palpitations -EKG is difficult to interpret, he has some areas of a narrow QRS that are regular but rapid into the 140s/150s and he has areas with this normal sinus with a first-degree AV block and then randomly dropped QRS, overnight he did have a wide-complex tachycardia as well -We will obtain an echo and consult cardiology for evaluation and assistance -We will start him on Cardizem 120 mg p.o. twice daily -He is already anticoagulated for his history of DVT, will continue with his Coumadin INR is 1 but he did take his first dose this morning so we will monitor -He states that he has a known murmur and that he has had an extensive cardiac work-up done in [place] though he does not remember the specific results -He also has mild aortic stenosis -Will be for diagnostic cardiac cath on Tuesday, he is okay with staying until then -Echo with an EF of 65% with mild concentric left ventricular hypertrophy 2. CLL -Continue with ibrutinib, he can bring it in from home -White count is stable 3. TOÑO -He is on CPAP at home which we can continue here -He states that he does wake up in the middle the night and wakes up in the morning not feeling rested therefore he he may need to have another titration study as an outpatient DVT: Coumadin Inpatient E&M: [id number] [facility] Hosp L2
[2020-02-17] VITALS (7 sets, daily range): BP systolic 107–115; BP diastolic 62–69; PULSE 58–67; RESP 16–17; TEMP 36.6; O2SAT 93–97
[2020-02-17 06:32] LABS: International Normalized Ratio 1.1; Prothrombin Time (Protime)PT. 13.2 SECONDS (11.7-14.9)
[2020-02-17 06:50] LABS: Anion Gap 4 (5-15); BUN 18 mg/dL (7-18); BUN/Creat Ratio 22.1 RATIO (10-20); Calcium,Total 8.5 mg/dL (8.5-10.1); Chloride 106 mmol/L (98-107); Creatinine, Serum 0.82 mg/dL (0.70-1.30); EST Glomerular Filtration Rate 101 mL/min (>60); Est Glom Filt Rate - Afr Amer 122 mL/min (>60); Estimated Creatinine Clearance 86.21 ml/min; Glucose 95 mg/dL (74-106); Magnesium 2.4 mg/dL (1.6-2.6); Potassium 4.1 mmol/L (3.5-5.1); Sodium Level 141 mmol/L (136-145)
[2020-02-17] MEDS: Aspirin 81 MG TAB.CHEW PO (09:35)
[2020-02-17] MEDS: Metoprolol Tartrate 50 MG Tablet PO (09:35)
--- NOTE | 2020-02-17 10:41 | PCM.PN.CARD ---
Subjectve: The patient denies ongoing palpitations. He does state since his last hospitalization he has had some chest discomfort on the left side. He states he did not tell everybody about this because he attributed it to musculoskeletal discomfort secondary to a chiropractic manipulation. He is not having that discomfort at this time. He also notes that since his surgery he has had some pink urine but now states it has become a little bit more red . Objective: Vital Signs Temp Pulse Resp BP Pulse Ox 97.8 F 64 16 107/62 97 02/17/20 09:30 02/17/20 09:35 02/17/20 09:30 02/17/20 09:35 02/17/20 09:30 Oxygen Delivery Method Room Air Weight: 197 lb 5.019 oz Body Mass Index (BMI) 30.9 Intake and Output for Last 24 Hours 02/15/20 02/16/20 02/17/20 23:59 23:59 23:59 Intake Total 1000 / 1000 1450 / 1450 100 / 100 Balance 1000 / 1000 1450 / 1450 100 / 100 General: Awake, Alert, Oriented x 3, Cooperative, No Acute Distress HEENT: Atraumatic, Normocephalic, PERRL, EOMI, Sclera Non Icteric Neck: Supple, Good ROM, No JVD Lungs: Clear to auscultation Cardiovascular: Regular Rhythm, Normal S1, Normal S2 Murmur Murmur: Grade 3/6, Mid Systolic, Crescendo-Decrescendo, LVOT, Sternal Notch Abdomen: Bowel Sounds Present, Soft Extremities: No edema Neurological: No Focal Motor or Sensory Deficit Psych/Mental Status: Appropriate 02/17/20 05:23: PT 13.2, INR 1.1 02/17/20 05:23: Sodium 141, Potassium 4.1, Chloride 106, Carbon Dioxide 31.0, Anion Gap 4 L, BUN 18, Creatinine 0.82, Est GFR (MDRD) Af Amer 122, Est GFR (MDRD) Non-Af 101, BUN/Creatinine Ratio 22.1 H, Glucose 95, Calcium 8.5, Magnesium 2.4 Rhythm: Sinus rhythm Medical Necessity - Tobacco Use Smoking Status: Never smoker Assessment/Plan 1. Cardiac dysrhythmia The patient has symptoms of palpitations. He has been found to have evidence of paroxysmal supraventricular tachycardias raising concerns of possible ectopic atrial tachycardia, however, based upon somatic/motion artifact paroxysmal atrial fibrillation cannot necessarily be excluded. He is also now been found to have an episode earlier today concerning for wide-complex tachycardia concerning for nonsustained ventricular tachycardia. He does not recall having any obvious symptoms when this occurred. This is superimposed upon his history of obstructive sleep apnea, thromboembolic disease with history of DVT/PE, CLL, and his recent TURP. He is going to be monitored. His laboratory studies are being reviewed. He has undergone evaluation with a transthoracic echocardiogram. The results are as noted. His medications were adjusted from a calcium channel antagonist to a beta-srinivas. Since being on the beta-srinivas it appears his rhythm has been calmer with no recurrence of his atrial or ventricular ectopy being reported. His case was reviewed. He will appears reasonable based upon the occurrence of the wide-complex tachycardia concerning for nonsustained ventricular tachycardia and his report of recent chest discomfort that he be considered for further evaluation with diagnostic cardiac catheterization. However, there is a concern with respect to his postoperative state and whether or not he is having postoperative urologic bleeding concerns and whether or not he could be a candidate for not only aspirin therapy but additional antiplatelet therapy or anticoagulant therapy. If he is not then he may need to continue conservative medical management pending further surgical recuperation and the ability to undergo such a procedure with such medications. 2. Cardiac murmur He does have a cardiac murmur on examination. Based upon his echocardiogram it appears this is compatible with underlying aortic disorder/aortic stenosis. This will need to be monitored and followed over time. 3. TOÑO He does have a history of TOÑO. He will continue his evaluation care by his primary care physician and his device use. 4. 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 His anticoagulation was recently interrupted for his TURP. He is being restarted on his anticoagulant therapy. 5. CLL He does have a history of CLL. He continues to follow with Dr. Ortega of [facility] hematology oncology. Comment: The above was discussed with the patient, spouse, and Dr. Gaines. Dr. Gaines contacted urology regarding his overall postsurgical state and his ability to take antiplatelet agents/anticoagulants and undergo additional invasive/interventional procedures, etc.. At the present time urology recommends barring an emergent issue holding on combination therapy such as aspirin and clopidogrel/Plavix like agents because of the concerns of postoperative hemorrhage and allowing the patient to have at least 3 to 4 weeks of postoperative recovery before proceeding with such agents, etc. With that taken into consideration then at the present time the options of conservative medical management with medication such as aspirin and beta-blockers, plus minus warfarin depending upon the patient's need for such, and allowing the patient to have postoperative recuperation and then a future elective diagnostic cardiac catheterization procedure/possible revascularization procedure versus proceeding with a staged procedure which would be a diagnostic procedure knowing no percutaneous revascularization therapy would be performed if needed based upon the inability to use agent such as antiplatelet agents or potentially other anticoagulants and then returning for an additional procedure as needed. These options were discussed and presented to the patient. At the present time the patient states he would prefer the conservative approach, continue postoperative recuperation, continue with outpatient cardiovascular follow-up, returning in the meantime if he has any concerning symptoms, and once he is healed from his surgery then proceeding with additional medical therapy/studies, etc.. The above was discussed with Dr. Gaines. He will investigate the patient's need for warfarin. However, if the patient has had a DVT that continues to require warfarin therapy then an option may be for aspirin therapy until his INR is therapeutic, then warfarin therapy until he is allowed to be off of warfarin therapy, then an attempt at aspirin/antiplatelet therapy and if no obvious adverse event/hemorrhagic events from a urologic issue or otherwise then to proceed with further evaluation with cardiac catheterization and possible revascularization therapy as needed. This note was generated using a voice recognition system and there may be incorrect words, spelling or punctuation that were not noted when reviewing the office note prior to saving.
--- NOTE | 2020-02-17 10:52 | PCM.PN.HOSP ---
Patient Problems: Active and Suspected Problems Cardiac arrhythmia (Acute) Subjective: Doing well, no issues overnight. No further palpitations or lightheadedness. He did have some chest pain when he takes a deep breath, he states that this started on Tuesday when he got adjusted by a chiropractor and said that his chest collapsed Vitals/I&O's: Vital Signs Temp Pulse Resp BP Pulse Ox 97.8 F 64 16 107/62 97 02/17/20 09:30 02/17/20 09:35 02/17/20 09:30 02/17/20 09:35 02/17/20 09:30 Oxygen Delivery Method Room Air Weight: 197 lb 5.019 oz Body Mass Index (BMI) 30.9 Intake and Output for Last 24 Hours 02/15/20 02/16/20 02/17/20 23:59 23:59 23:59 Intake Total 1000 / 1000 1450 / 1450 100 / 100 Balance 1000 / 1000 1450 / 1450 100 / 100 General: Alert, Oriented x3, Cooperative, No apparent distress HEENT: Atraumatic, PERRLA, EOMI, Normocephalic Oral: Moist Mucosa Neck: Supple, No JVD Lungs: Clear to auscultation, Normal air movement, No rhonchi, No wheeze, No rales Cardiovascular: Regular rate, regular rhythm, Normal S1, Normal S2, Murmur - 2/6 TEVIN LUSB, chest wall pain to palpation on the left Abdomen: Soft, Non Tender, Non-Distended, No Hepato-splenomegaly Extremities: No edema, Capillary Refill Less than 3 Seconds Skin: No rashes, No breakdown Neurological: Neuro grossly intact, Sensory exam intact to light touch and pain Psych/Mental Status: Normal Affect, Appropriate Laboratory Results 02/17/20 05:23: PT 13.2, INR 1.1 02/17/20 05:23: Sodium 141, Potassium 4.1, Chloride 106, Carbon Dioxide 31.0, Anion Gap 4 L, BUN 18, Creatinine 0.82, Estim Creat Clear Calc 86.21, Est GFR (MDRD) Af Amer 122, Est GFR (MDRD) Non-Af 101, BUN/Creatinine Ratio 22.1 H, Glucose 95, Calcium 8.5, Magnesium 2.4 Current Medications Acetaminophen (Tylenol) 650 mg PO Q6H PRN PRN PRN Reason: Pain Score 1-10/Temp > 100.7 F Aspirin (Aspirin, Baby) 81 mg PO DAILY@0800 COUNT INCLUDES THE [facility] Last Admin: 02/17/20 09:35 Dose: 81 mg Documented by: Sodium Chloride () 1,000 mls @ 15 mls/hr IV .Q48H COUNT INCLUDES THE [facility] Melatonin (Melatonin) 3 mg PO QHS PRN PRN PRN Reason: INSOMNIA Metoprolol Tartrate (Lopressor (Beta Ric)) 50 mg PO BID COUNT INCLUDES THE [facility] Last Admin: 02/17/20 09:35 Dose: 50 mg Documented by: Ondansetron HCl (Zofran) 4 mg IV Q8H PRN PRN PRN Reason: NAUSEA/VOMITING Sodium Chloride () 10 - 40 ml IV UD PRN PRN Reason: SALINE FLUSH STROKE Vital Signs/Narrative: Vital Signs Temp Pulse Resp BP Pulse Ox 02/17/20 09:35 64 107/62 02/17/20 09:30 97.8 F 64 16 107/62 97 02/17/20 07:00 61 Medical Necessity - Tobacco Use Smoking Status: Never smoker Assessment/Plan All Active Problems Cardiac arrhythmia (Acute) 1. Palpitations -EKG is difficult to interpret, he has some areas of a narrow QRS that are regular but rapid into the 140s/150s and he has areas with this normal sinus with a first-degree AV block and then randomly dropped QRS, overnight he did have a wide-complex tachycardia as well -Transition to 50 metoprolol twice daily yesterday and he is doing better from a rhythm standpoint -He is already anticoagulated for his history of DVT, will continue with his Coumadin INR is 1.1 but he did take his first dose on the morning of presentation as instructed by his urologist -He states that he has a known murmur and that he has had an extensive cardiac work-up done in [place] though he does not remember the specific results -He has mild aortic stenosis -Echo with an EF of 65% with mild concentric left ventricular hypertrophy -He has slight hematuria yesterday and I discussed the case with his urologist who would prefer he wait a month to have a heart cath if a stent is necessary as the aspirin and Plavix could increase his bleeding risk. 2. CLL -Continue with ibrutinib, he can bring it in from home -White count is stable 3. TOÑO -He is on CPAP at home which we can continue here -He states that he does wake up in the middle the night and wakes up in the morning not feeling rested therefore he he may need to have another titration study as an outpatient DVT: Coumadin Inpatient E&M: [id number] [facility] Hosp L2
--- NOTE | 2020-02-17 12:43 | DCINST_ITS ---
- Discharge Diagnoses Current Active Problems: Current Active and Chronic Problems Cardiac arrhythmia (Acute) TOÑO (obstructive sleep apnea) (Chronic) Thromboembolism (Chronic) CLL (chronic lymphocytic leukemia) (Chronic) Cardiac murmur (Chronic) You will use the following diet at home:: Cardiac Your food should be the consistency of: Regular Your liquids should be the consistency of: Regular/Thin Discharge Activity: Return to Normal Activity Call your doctor if your incision/area has: Sudden Increased Bleeding Call your doctor if you observe: Fever of 101 or Higher, Shortness of breath, Dizziness, Fainting spells, Swelling in the ankles, Chest pain, Increased palpitations (irregular heartbeat) Additional Instructions: Follow-up with your PCP to have an INR checked to monitor your Warfarin level. Continue the aspirin until your INR is therapeutic (2-3) and then you may discontinue your aspirin. Allergies/Adverse Reactions: Allergies No Known Allergies Allergy (Verified 02/15/20 10:24) Medications to take at Discharge Ibrutinib [Imbruvica] 420 mg PO DAILY 02/06/20 Warfarin [Coumadin] 7.5 mg PO DAILY 02/06/20 Aspirin [Aspirin, Baby] 81 mg PO DAILY@0800 #30 tab.chew 02/17/20 Metoprolol Tartrate [Lopressor (beta srinivas)] 50 mg PO BID #60 tab 02/17/20 The following prescriptions were given: Aspirin [Aspirin, Baby] 81 mg PO DAILY@0800 #30 tab.chew Transmission Status: Pending to [facility] Metoprolol Tartrate [Lopressor (beta srinivas)] 50 mg PO BID #60 tab Transmission Status: Pending to [facility] Primary Care Physician: Roderick Saleh MD [Primary Care Provider] - Please follow up with your Primary Care Physician in: 3-5 days Test Results: Test results from this visit will be discussed in further detail at your follow- up appointment, if applicable. Please Follow Up With: Paulo Martin MD When: As previously scheduled
--- NOTE | 2020-02-17 12:45 | PCM.DC.SUM ---
Discharge Date and Diagnosis - Problem List Patient Problems: Active and Suspected Problems Cardiac arrhythmia (Acute) Date of Admission: 02/15/20 Date of Discharge: 02/17/20 - Primary Discharge Diagnosis Acute Problems: Active Problems Cardiac arrhythmia (Acute) - Secondary Discharge Diagnosis Chronic Problems: Chronic Problems TOÑO (obstructive sleep apnea) (Chronic) Thromboembolism (Chronic) CLL (chronic lymphocytic leukemia) (Chronic) Cardiac murmur (Chronic) Hospital Course and Treatment Imaging Results: Clinical Impression(s) from Imaging Studies Chest X-Ray 02/15/20 11:00 IMPRESSION: No acute parenchymal disease. Electronically Signed: Shayne Richard, at 11:15 EDT , Service support , Echo: Interpretation Summary Left ventricular systolic function is normal. The estimated ejection fraction is 65 %. Mild concentric left ventricular hypertrophy. There is mild to moderate mitral annular calcification. Extension of the mitral annular calcification onto the base of the posterior mitral valve leaflet. Trivial mitral valve insufficiency. Trivial tricuspid valve insufficiency. Mild aortic stenosis. Trivial aortic valve insufficiency. Trivial pulmonic valve insufficiency. Unable to estimate RV systolic pressure/pulmonary artery pressure due to technically difficult study. Diastolic function is indeterminate. Consiults: Cardiology Operations: None Procedures: 2-D Echocardiogram Summary of Care Provided: Per HPI: The patient is a 64 year old M with a PMH as below who presents from home with palpitations. He says that he is noticed previously that he would have elevated heart rates but it was never this inconsistent. He states at some point he was sitting in the 70s and then he would jump up to the 140s and he would go back down into a normal heart rate. He does have a history of CLL as well as a prior stroke and a DVT and therefore he is been on Coumadin. He recently did have a TURP and has been off of his Coumadin but restarted it today. He denies any lightheadedness or dizziness with this episode of tachycardia however he did have a little bit of chest pressure when he was in the 140s. He had an episode of lightheadedness a few days ago but he does not remember anything specific that was associated with that lightheadedness. On admission to the ER he did have a normal troponin, his white count was elevated consistent with his diagnosis of CLL. It is unsure in the ER what his heart rhythm was, it is possible new onset A. fib, unlikely to be a flutter with RVR. Unfortunately he was unable to undergo a drip because every time they tried to start the Cardizem drip he would go from being tachycardic to a normal rhythm therefore he was given a dose of Cardizem 120 mg p.o. in the ER prior to transferring to the floor. Hospital Course: 1. [id number] male presented from home with palpitations. He said that he had had something similar before however was not this irregular. He is a do to go from having periods of heart rate in the 70s appears of heart rate in the 140s. EKG was difficult to interpret because he had some areas of narrow QRS that were regular but then wrapped into the 140s, on telemetry he had episodes of wide QRS tachycardia as well as first-degree AV block with renally dropped QRSs. Initially he was started on Cardizem 120 twice daily which did not control his heart rate therefore he was transitioned to metoprolol 50 mg p.o. twice daily the day before discharge, after starting the metoprolol he remained in normal sinus rhythm therefore he was discharged on the metoprolol. Cardiology was consulted and felt that he would benefit from having a diagnostic cath on Tuesday however he started having slight hematuria after his TURP which she had done on 02/08/2020. In discussing this with his urologist, he stated that if he started aspirin and Plavix he would need to stop it if he develops significant hematuria and that he would not feel comfortable being on aspirin and Plavix at least for a month after surgery. Therefore the decision to undergo diagnostic cath was pushed back secondary to the possibility of needing to have a stent and therefore requiring aspirin and Plavix for at least a year. His Coumadin was restarted on the day of admission, he had taken in the morning per his instructions from his urologist. In the meantime while he is becoming therapeutic, he will be started on aspirin daily which she will take until his INR is therapeutic between 2-3. He is on Coumadin because of DVT that was found 3 to 4 weeks ago. He has a's in the setting of CLL. He did have an echo which demonstrated mild concentric left ventricular hypertrophy with an EF of 65% and mild aortic stenosis. I discussed the plan for discharge with him and his both of whom expressed understanding of the risks and benefits of discharge today. He will need to follow-up with his PCP in 3 to 5 days for INR evaluation. 2. CLL, DVT, TOÑO are all chronic medical conditions complicating his care. His home medications were continued where appropriate Patient Problems: Active and Suspected Problems Cardiac arrhythmia (Acute) - Physical Exam Vitals/I&O's: Vital Signs Temp Pulse Resp BP Pulse Ox 97.8 F 67 16 107/62 97 02/17/20 09:30 02/17/20 11:00 02/17/20 09:30 02/17/20 09:35 02/17/20 09:30 Oxygen Delivery Method Room Air Weight: 197 lb 5.019 oz Body Mass Index (BMI) 30.9 Intake and Output for Last 24 Hours 02/15/20 02/16/20 02/17/20 23:59 23:59 23:59 Intake Total 1000 / 1000 1450 / 1450 100 / 100 Balance 1000 / 1000 1450 / 1450 100 / 100 Laboratory Results 02/17/20 05:23: PT 13.2, INR 1.1 02/17/20 05:23: Sodium 141, Potassium 4.1, Chloride 106, Carbon Dioxide 31.0, Anion Gap 4 L, BUN 18, Creatinine 0.82, Estim Creat Clear Calc 86.21, Est GFR (MDRD) Af Amer 122, Est GFR (MDRD) Non-Af 101, BUN/Creatinine Ratio 22.1 H, Glucose 95, Calcium 8.5, Magnesium 2.4 Current Medications Acetaminophen (Tylenol) 650 mg PO Q6H PRN PRN PRN Reason: Pain Score 1-10/Temp > 100.7 F Aspirin (Aspirin, Baby) 81 mg PO DAILY@0800 ON LICENSE OF [facility] Last Admin: 02/17/20 09:35 Dose: 81 mg Documented by: Sodium Chloride () 1,000 mls @ 15 mls/hr IV .Q48H ON LICENSE OF [facility] Melatonin (Melatonin) 3 mg PO QHS PRN PRN PRN Reason: INSOMNIA Metoprolol Tartrate (Lopressor (Beta Ric)) 50 mg PO BID ON LICENSE OF [facility] Last Admin: 02/17/20 09:35 Dose: 50 mg Documented by: Ondansetron HCl (Zofran) 4 mg IV Q8H PRN PRN PRN Reason: NAUSEA/VOMITING Sodium Chloride () 10 - 40 ml IV UD PRN PRN Reason: SALINE FLUSH Discharge Activity: Return to Normal Activity Call your doctor if your incision/area has: Sudden Increased Bleeding Call your doctor if you observe: Fever of 101 or Higher, Shortness of breath, Dizziness, Fainting spells, Swelling in the ankles, Chest pain, Increased palpitations (irregular heartbeat) Home Medications: Medications to take at Discharge Ibrutinib [Imbruvica] 420 mg PO DAILY 02/06/20 Warfarin [Coumadin] 7.5 mg PO DAILY 02/06/20 Aspirin [Aspirin, Baby] 81 mg PO DAILY@0800 #30 tab.chew 02/17/20 Metoprolol Tartrate [Lopressor (beta ric)] 50 mg PO BID #60 tab 02/17/20 Following Prescriptions Were Given to Patient: Aspirin [Aspirin, Baby] 81 mg PO DAILY@0800 #30 tab.chew Transmission Status: Pending to [facility] Metoprolol Tartrate [Lopressor (beta ric)] 50 mg PO BID #60 tab Transmission Status: Pending to [facility] Primary Care Physician: Roderick Saleh MD [Primary Care Provider] - Please follow up with your Primary Care Physician in: 3-5 days Please Follow Up With: Paulo Martin MD When: As previously scheduled Disposition: Home Minutes spent on discharge:: 35 Patient Condition:: Stable Medical Necessity - Tobacco Use Smoking Status: Never smoker Meaningful Use Info Meaningful Use Diagnoses (Choose all that apply): None applicable Inpatient E&M: 51859 Disch Hosp
[2020-02-18 13:00] LABS: Pathologist Review Reviewed
[2020-02-18 13:00] LABS: Pathologist Review Reviewed
== END 2020-02-17 14:42 | disposition home or self-care (01) | DRG 309 ==
LOC: ED 10:51 → PCU 12:01
PROVIDERS: Admitting Provider Family Medicine; Emergency Provider Emergency Medicine; PCP Family Medicine; Visit Provider Family Medicine
DX: I47.1 Supraventricular tachycardia (principal); C91.10 Chronic lymphocytic leukemia of B-cell type not having achieved remission; I35.0 Nonrheumatic aortic (valve) stenosis; I44.0 Atrioventricular block, first degree; G47.33 Obstructive sleep apnea (adult) (pediatric); Z86.711 Personal history of pulmonary embolism; Z86.718 Personal history of other venous thrombosis and embolism; Z79.01 Long term (current) use of anticoagulants; Z79.899 Other long term (current) drug therapy; Z86.73 Personal history of transient ischemic attack (TIA), and cerebral infarction without residual deficits
CPT/HCPCS: 36415; 71045; 80048; 83735; 84443; 84484; 85025; 85610; 93005; 93306; 99285; Q9957; A4216

== ENCOUNTER 2020-02-18 14:34 | Observation (INO) | payer OTHER, SELFPAY ==
[2020-02-15 12:37] VITALS: BMI 30.9
[2020-02-18] VITALS (11 sets, daily range): BP systolic 122–139; BP diastolic 75–89; PULSE 67–77; RESP 15–18; TEMP 36.1–37.1; O2SAT 94–100; BMI 31.3; BMI 30.9
--- NOTE | 2020-02-18 14:10 | RAD_ITS ---
STUDY: X-RAY CHEST REASON FOR EXAM: Male, 64 years old. RECENT NEW DX AFIB. SCHEDULED FOR CATH TODAY. CHEST PAIN AND SOB TODAY TECHNIQUE: Single AP portable view of the chest. COMPARISON: Comparison is made with prior study dated 02/15/2020. FINDINGS: EKG electrodes are seen. The lungs are clear and expanded. There is no demonstrated pleural abnormality. Normal size heart. Normal mediastinum and elias. Normal visualized pulmonary arteries. There is atherosclerotic calcification of the aortic arch with tortuosity. There are diffuse degenerative changes of the visualized thoracic spine. Normal visualized ribs, clavicles, and shoulders. There is no demonstrated abnormality of the visualized soft tissue structures of the upper abdomen. RAD/Chest 1 View (Portable) IMPRESSION: No acute abnormality is seen. Electronically Signed: Shayne Richard, at 15:34 EDT , Service support ,
--- NOTE | 2020-02-18 14:58 | EKG12_ITS ---
Test Reason : PALPS Blood Pressure : / mmHG Vent. Rate : 109 BPM Atrial Rate : 153 BPM P-R Int : 216 ms QRS Dur : 084 ms QT Int : 328 ms P-R-T Axes : 000 003 052 degrees QTc Int : 441 ms Sinus Rhythm with PSVT appearing c/w an ectopic atrial rhythm/tachycardia Minimal voltage criteria for LVH, may be normal variant Abnormal ECG Confirmed by ANASTACIA MASSEY, GENE ([id number]), photograph editor GLENIS MORAES ([id number]) on 02/19/2020 10:42:04 AM Referred By: TYRON/ROSSI Confirmed By:GENE GALAVIZ MD
--- NOTE | 2020-02-18 15:05 | ED.VIS.GEN ---
History of Present Illness Chief Complaint: Chest Pain Informant: Patient Onset: Hours - Onset approximately 12 noon Context: Sudden Onset Timing: Continuous Quality: Initially sharp now tight pressure Location: Retrosternal Current Severity: Mild Maximum Severity: Moderate Worsened by: Walking Relieved by: Nothing Associated Symptoms: Dyspnea and dyspnea with exertion Narrative: Patient is a 64-year-old male who was recently admitted to the hospital. He was scheduled for cardiac cath. The cardiac cath was canceled because of gross hematuria after urologic procedure. He is on Coumadin. He reports chest discomfort described pressure tightness with radiation to the left jaw and left shoulder area. This was associated with dyspnea only. He does report dyspnea and dyspnea on exertion. He denies black or maroon stool. He reports the hematuria has improved. It has not resolved. He denies symptoms of claudication. He denies leg pain or swelling. He has no history of VTE. He denies history of peptic ulcer disease, hiatal hernia or reflux. He denies black or maroon stool. Prior similar symptoms: Yes Recent Illness/Hospitalization: Yes - Past Medical History (1) Cardiac arrhythmia Status: Acute (2) CLL (chronic lymphocytic leukemia) Status: Chronic (3) Cardiac murmur Status: Chronic (4) TOÑO (obstructive sleep apnea) Status: Chronic (5) Thromboembolism Status: Chronic Past Medical History - Allergies and Home Meds Allergies/Adverse Reactions: Allergies No Known Allergies Allergy (Verified 02/18/20 14:39) Primary Care Physician: Roderick Saleh MD [Primary Care Provider] - Prior records reviewed: Yes - Records reveals that he has had a clot in the past. Surgical History: total knee arthroplasty, TURP Lives: Spouse/ Significant Other Smoking Status: Never smoker Alcohol: None Drugs: None - Family History Maternal Family History: Reports: Heart Disease Paternal Family History: Reports: No pertinent history Review of Systems General: Denies: Chills, Fever, Malaise, Subjective Eyes: Denies: Visual changes - bilaterally, Blurred Vision - bilaterally ENT: Denies: Bilateral ear pain, Rhinorrhea, Sore throat Cardiovascular: Reports: Chest pain. Denies: Palpitations, Heart racing Respiratory: Reports: Dyspnea, Dyspnea on exertion, Orthopnea. Denies: Paroxysmal nocturnal dyspnea Gastrointestinal: Denies: Abdominal pain, Nausea, Vomiting, Diarrhea Genitourinary: Reports: Hematuria. Denies: Dysuria, Frequency Musculoskeletal: Denies: Myalgias, Arthralgias, Neck pain, Back pain, Swelling, Extremity Pain, -, - Skin: Denies: Rash, Wounds Neurological: Denies: Headache, Weakness, Numbness Hematologic: Reports: Easy bruising Allergy: Denies: Uticaria Physical Exam Vital Signs/Narrative: Vital Signs Temp Pulse Resp BP Pulse Ox 02/18/20 14:35 97 F L 72 18 129/81 H 94 Inital Vital Signs reviewed: Yes General: Well nourished, Well developed, No Acute Distress Head: Normocephalic, Atraumatic Eyes: Perrl, EOMI ENT: Moist mucous membranes, No rhinorrhea Neck: Supple, Nontender, No lymphadenopathy, No JVD Cardiovascular: Regular rate, Regular rhythm, No murmurs, Normal S1, Normal S2 Respiratory: No distress, CTA bilaterally, Chest nontender Abdomen: Soft, Nontender, Nondistended, Normal bowel sounds Back: Nontender, Normal Inspection Extremities: Nontender, No edema Skin: Normal color, No rash Neurological: Alert, Oriented x3, Cranial nerves II-XII grossly intact, Normal Strength, Normal Sensation Psychological: Normal affect, Normal Mood Diagnostic/Tx/Re-eval Impressions Chest X-Ray 02/18/20 14:10 IMPRESSION: No acute abnormality is seen. Electronically Signed: Shayne Richard, at 15:34 EDT , Service support , 02/18/20 14:10 Chest 1 View (Portable) [RAD] Stat 02/18/20 16:08 CTA Chest W/WO Contrast [CT] Stat Laboratory Results 02/18/20 02/18/20 02/18/20 14:50 14:50 14:50 WBC 47.6 H* RBC 3.75 L Hgb 11.1 L Hct 35.4 L MCV 94.4 H MCH 29.6 MCHC 31.4 L RDW Std Deviation 52.8 H RDW Coeff of Diogo 15.9 H Plt Count 211 MPV 10.3 Immature Gran % (Auto) 0.100 Neut % (Auto) 9.6 L Lymph % (Auto) 89.4 H [place] % (Auto) 0.6 Eos % (Auto) 0.2 Baso % (Auto) 0.1 Absolute Neuts (auto) 4.6 Absolute Lymphs (auto) 42.52 H Nucleated RBC % 0 Differential Comment Diff Path Review November foll PT 13.8 INR 1.1 Sodium 142 Potassium 4.1 Chloride 108 H Carbon Dioxide 30.0 Anion Gap 4 L BUN 19 H Creatinine 0.74 Estim Creat Clear Calc 95.53 Est GFR (MDRD) Af Amer 138 Est GFR (MDRD) Non-Af 114 BUN/Creatinine Ratio 25.8 H Glucose 105 Calcium 8.4 L Troponin I < 0.015 Patient's INR is subtherapeutic at 1.1. Case was discussed with Dr. Leonardo Wilson. He was diagnosed 3 weeks ago with a DVT. His Coumadin was discontinued. He was not anticoagulated with Lovenox when the Coumadin was restarted yesterday. This does make him hyper coagulable. With him having dyspnea on exertion need to evaluate for pulmonary embolus. Chest pain is not typical for pulmonary embolus. Patient will require 23-hour observation for serial enzymes. Will inform patient of plan. White count is elevated because patient has history of CLL. - Medical Decision Making Complaints of dyspnea, dyspnea exertion and chest heaviness need to evaluate for cardiac versus noncardiac etiology. Chest x-ray, EKG appropriate blood work was obtained as well as PT/INR since he is on Coumadin. Case will be discussed with his furnace combustion analyst Dr. Leonardo Wilson. I was informed that patient's Coumadin was discontinued for the TURP. He was not anticoagulated with Lovenox when he was restarted on Coumadin. He was diagnosed with DVT left lower extremity 3 weeks ago. Since he was not started on Lovenox when the Coumadin was restarted he is by definition hypercoagulable and since he is complaining of significant dyspnea with exertion need to rule out PE. This would not explain his chest pressure with radiation to jaw and left shoulder/upper extremity. I was informed by Dr. Wilson that he had a run of V. tach and reason cardiac catheterization was ordered. Plan was to perform diagnostic cardiac cath. Patient's dated he did not want to be billed twice. Hope was to delay until they would be able to perform cardiac catheterization and place stents if needed. Plan is to obtain CTA of chest. If there is a blood clot will need to contact Dr. Ventura regarding anticoagulation therapy versus placement of filter. He also will require stay in the hospital with serial enzymes to rule out myocardial ischemia. Case was turned over to Dr. Hernandez. Make disposition pending results of CTA. ED Disposition - Plan for ED Patient: Diagnosis: Chest pain, midsternal, Dyspnea on minimal exertion, Deep vein thrombosis (DVT) of left lower extremity Referrals: Roderick Saleh MD [Primary Care Provider] -
[2020-02-18 15:26] LABS: Absolute Lymphocyte Count 42.52 X10^3/uL (0.83-4.51); Absolute Neutrophil Count 4.6 X10^3/uL (2.0-7.7); Basophil# 0.03 X10^3/uL; Basophil% 0.1 % (0-1); Eosinophil# 0.08 X10^3/uL; Eosinophils% 0.2 % (0-5); Hematocrit 35.4 % (40-54); Hemoglobin 11.1 g/dL (13.0-16.5); Lymphocyte # 42.52 X10^3/ul (4.0); Lymphocyte % 89.4 % (19-41); Mean Corp Hgb Conc 31.4 g/dL (32-36); Mean Corpuscular Hgb 29.6 pg (27.0-32.0); Mean Corpuscular Volume 94.4 fL (80-94); Mean Platelet Vol. 10.3 fl (6.2-12.0); Monocyte# 0.27 X10^3/uL; Monocyte% 0.6 % (0-10); NRBC Flagged by Analyzer 0 % (0-5); Neutrophil % 9.6 % (47-70); POSITIVE COUNT YES; POSITIVE DIFFERENTIAL YES; POSITIVE MORPHOLOGY YES; Platelet Count 211 K/mm3 (150-450); RBC Distribution Width CV 15.9 % (11.6-14.6); RBC Distribution Width SD 52.8 fl (35.1-43.9); Red Blood Count 3.75 M/mm3 (4.6-6.2)
[2020-02-18 15:30] LABS: International Normalized Ratio 1.1; Prothrombin Time (Protime)PT. 13.8 SECONDS (11.7-14.9)
[2020-02-18 15:39] LABS: Anion Gap 4 (5-15); BUN 19 mg/dL (7-18); BUN/Creat Ratio 25.8 RATIO (10-20); Calcium,Total 8.4 mg/dL (8.5-10.1); Chloride 108 mmol/L (98-107); Creatinine, Serum 0.74 mg/dL (0.70-1.30); EST Glomerular Filtration Rate 114 mL/min (>60); Est Glom Filt Rate - Afr Amer 138 mL/min (>60); Estimated Creatinine Clearance 95.53 ml/min; Glucose 105 mg/dL (74-106); Potassium 4.1 mmol/L (3.5-5.1); Sodium Level 142 mmol/L (136-145)
[2020-02-18 15:45] LABS: Differential Indicated SCAN CRITERIA MET; White Blood Count 47.6 K/mm3 (4.4-11.0)
--- NOTE | 2020-02-18 16:08 | CT_ITS ---
STUDY: CTA CHEST REASON FOR EXAM: Male, 64 years old. Acute chest pain shortness of breath, atrial fibrillation RADIATION DOSAGE (If Supplied By Facility): CTDIvol = ( 15.95 ) mGy, DLP = ( 550.45 ) mGycm TECHNIQUE: The examination was performed with the intravenous administration of 100ML ISOVUE 370. Post-processing of the angiographic images was performed, with multiplanar reformation and 3D reconstruction. Individualized dose optimization techniques were used for this CT. COMPARISON: None. FINDINGS: Normal enhancement of the main pulmonary artery and right and left pulmonary arteries. Normal enhancement of the bilateral peripheral pulmonary arteries. There is no demonstrated pulmonary embolism. Normal thoracic aorta and visualized great vessels. There is no demonstrated aortic dissection. Normal heart and pericardium. There are calcifications of the coronary arteries. Scattered subcentimeter axillary and mediastinal lymph nodes. Normal hilar regions. There is peribronchial thickening. The lungs are well expanded. There is bibasilar atelectasis. Normal pleura. Normal chest wall structures. There are degenerative changes of thoracic spine. Normal visualized upper abdomen. CT/CTA Chest W/WO Contrast IMPRESSION: No demonstrated PE, or thoracic aortic aneurysm or dissection Dependent atelectasis in the lung bases, no organizing infiltrate or suspicious groundglass opacifications, or suspicious noncalcified mass or nodule. Chronic bronchitis Degenerative bony changes Electronically Signed: Miguel Vang MD at 16:55 EDT , Service support ,
--- NOTE | 2020-02-18 18:50 | PCM.HP.STD ---
Problem List (1) TOÑO (obstructive sleep apnea) Status: Chronic (2) CLL (chronic lymphocytic leukemia) Status: Chronic (3) Chest pain, midsternal Status: Acute (4) Deep vein thrombosis (DVT) of left lower extremity Status: Chronic History of Present Illness Date of Admission: 02/18/20 Chief Complaint: Chest pain. The patient is a 64 year old M with past medical history as mentioned above presented to the emergency room because of chest pain. Her symptoms started today around 11 AM when he was sitting, left-sided chest pain, intermittent, comes and short episodes of what he described as shock or spasm like pain, comes on once or twice in the minute 8 out of 10 in severity, associated with shortness of breath, aggravated by taking a deep breath and no aggravating factors. Patient mentioned that later, patient became more steady. Patient was discharged from the hospital yesterday after he was admitted for cardiac arrhythmia. He is supposed to go for a heart catheterization but that was postponed as patient history of TURP 10 days ago and he was recommended not to start patient on Plavix if the patient needed to have a stent placed. Patient history of left leg DVT around 3 weeks ago and he has been on Coumadin but he was instructed to stop taking Coumadin before his TURP surgery and he started taking Coumadin before yesterday. In the emergency department, his vital signs were stable. His routine blood work was remarkable for significant chronic leukocytosis secondary to CLL, otherwise normal. EKG revealed normal sinus rhythm, normal AL interval, normal QRS, normal QTC, no acute segment changes. Troponin was negative. CTA chest done and showed no PE or dissection. Case discussed with cardiology and recommended nuclear stress test tomorrow morning. Patient is being admitted for chest pain for evaluation. Past Medical History Past Medical History (Chronic Problems): Chronic Problems TOÑO (obstructive sleep apnea) (Chronic) Thromboembolism (Chronic) CLL (chronic lymphocytic leukemia) (Chronic) Cardiac murmur (Chronic) Deep vein thrombosis (DVT) of left lower extremity (Chronic) Allergies No Known Allergies Allergy (Verified 02/18/20 14:39) Home Medications: Ambulatory Orders Medication Instructions Recorded Warfarin [Coumadin] 7.5 mg PO DAILY 02/06/20 Aspirin [Aspirin, Baby] 81 mg PO DAILY@0800 #30 tab.chew 02/17/20 Metoprolol Tartrate [Lopressor 50 mg PO BID 02/18/20 (beta srinivas)] Surgical History: total knee arthroplasty, TURP Lives: Spouse/ Significant Other Smoking Status: Never smoker Alcohol: None Drugs: None - *Family History Maternal History Items: Heart Disease Paternal History Items: No pertinent history Review of Systems Constitutional: Denies: Anorexia, Chills, Fever, Weakness Eyes: Denies: Blurred vision, Double vision, Drainage, Redness HEENT: Denies: Difficulty Hearing, Ear Pain, Eye Pain, Nasal Congestion, Sore Throat Cardiovascular: Reports: Chest Pain, Chest Pressure. Denies: Heaviness, Light Headedness, Orthopnea, Paroxysmal Noc. Dyspnea, Syncope Respiratory: Reports: Shortness of Breath. Denies: Cough, Pleuritic Pain, Sputum production, Wheezing Gastrointestinal: Denies: Abdominal Pain, Constipation, Diarrhea, Nausea, Vomiting Genitourinary: Denies: Dysuria, Frequency, Hematuria Musculoskeletal: Denies: Arm Pain, Back Pain, Foot Pain Skin: Denies: Dryness, Rash Neurological: Denies: Balance problems, Double vision, Slurred speech, Confusion, Headaches, Incoordination, Numbness Psychiatric: Denies: Anxiety, Depression Endocrine: Denies: Change in Body Habitus, Polydipsia, Polyuria VTE Information - Inpt Only VTE Present on Admission: No VTE Mechan Device Prophylaxis: None VTE Pharm Prophylaxis ordered?: Yes Patient Problems: Active and Suspected Problems Chest pain, midsternal (Acute) - Physical Exam Vitals/I&O's: Vital Signs Temp Pulse Resp BP Pulse Ox 97 F L 67 15 130/87 H 97 02/18/20 18:37 02/18/20 18:37 02/18/20 18:37 02/18/20 18:37 02/18/20 18:37 Oxygen Flow Rate (L/min) 2 Oxygen Delivery Method Nasal Cannula Weight: 200 lb Body Mass Index (BMI) 31.3 General: Alert, Oriented x3, Cooperative, No apparent distress HEENT: Atraumatic, PERRLA, EOMI, Normocephalic Oral: Moist Mucosa, No Gingival or Mucosal Lesions/ Ulcerations Neck: Supple, No JVD, Negative Carotid Bruits, Trachea Midline, Thyroid Normal Size and Texture Lungs: Clear to auscultation, Normal air movement, No rhonchi, No wheeze, No rales, Diminished Cardiovascular: Regular rate, Regular Rhythm, Normal S1, Normal S2, PMI Normal Abdomen: Bowel Sounds Present, Soft, Non Tender, Non-Distended, No Hepato-splenomegaly Extremities: No clubbing, No cyanosis, No edema Skin: No rashes, No breakdown Lymphatic: No Cervical, Supraclavicular, or Inguinal Adenopathy Neurological: Cranial nerves II-XII grossly intact, Motor Exam 5/5 strength throughout Psych/Mental Status: Normal Affect, Appropriate, Alert and oriented to time, place, person, mood and affect Laboratory Results 02/18/20 14:50: WBC 47.6 H*, RBC 3.75 L, Hgb 11.1 L, Hct 35.4 L, MCV 94.4 H, MCH 29.6, MCHC 31.4 L, RDW Std Deviation 52.8 H, RDW Coeff of Diogo 15.9 H, Plt Count 211, MPV 10.3, Immature Gran % (Auto) 0.100, Neut % (Auto) 9.6 L, Lymph % (Auto) 89.4 H, [place] % (Auto) 0.6, Eos % (Auto) 0.2, Baso % (Auto) 0.1, Absolute Neuts (auto) 4.6, Absolute Lymphs (auto) 42.52 H, Nucleated RBC % 0, Differential Comment , Diff Path Review November02/18/20 14:50: Sodium 142, Potassium 4.1, Chloride 108 H, Carbon Dioxide 30.0, Anion Gap 4 L, BUN 19 H, Creatinine 0.74, Estim Creat Clear Calc 95.53, Est GFR (MDRD) Af Amer 138, Est GFR (MDRD) Non-Af 114, BUN/Creatinine Ratio 25.8 H, Glucose 105, Calcium 8.4 L, Troponin I < 0.015 02/18/20 14:50: PT 13.8, INR 1.1 Clinical Impression(s) from Imaging Studies Chest X-Ray 02/18/20 14:10 IMPRESSION: No acute abnormality is seen. Electronically Signed: Shayne Richard, at 15:34 EDT , Service support , Chest CTA 02/18/20 16:08 IMPRESSION: No demonstrated PE, or thoracic aortic aneurysm or dissection Dependent atelectasis in the lung bases, no organizing infiltrate or suspicious groundglass opacifications, or suspicious noncalcified mass or nodule. Chronic bronchitis Degenerative bony changes Electronically Signed: Miguel Vang MD at 16:55 EDT , Service support , Assessment/Plan All Active Problems Chest pain, midsternal (Acute) This is a 64 years old male patient presented to the emergency room because of chest pain and he is being admitted for evaluation. #1 chest pain: Seems to be atypical, pleuritic. CTA chest done and showed no PE or dissection. EKG reviewed, revealed normal sinus rhythm without acute ischemic changes. First troponin is negative. Chest x-ray showed no acute findings. Patient was discharged from the hospital yesterday, supposed to go for cardiac catheterization today but that was postponed because he had a history of TURP 10 days ago and he was recommended not to start patient on Plavix if stent placed. After discussion with cardiology, patient will be admitted for stress test. Plan: Admit to PCU for observation, cardiac monitoring, serial cardiac enzymes, repeat EKG tomorrow morning, sublingual nitroglycerin PRN, Tylenol PRN, Zofran PRN, nuclear stress test tomorrow morning if cardiac enzymes are negative. #2 recent history of cardiac arrhythmia: Paroxysmal SVT, possible ectopic atrial tachyarrhythmia and also paroxysmal A. fib cannot be ruled out. This is according to cardiology during the last admission. Patient is on metoprolol. EKG reviewed as above, normal sinus rhythm, rate is controlled. Plan to continue metoprolol. #3 recent history of acute DVT of the left lower extremity: Started back on Coumadin 2 days ago. INR is 1.1, subtherapeutic. I think it is appropriate to start patient on Lovenox for bridging. We will start Lovenox 1 mg/kg twice daily, continue Coumadin, recheck INR tomorrow morning. #4 CLL: Stable, continue Imbruvica. WBC is high elevated which is chronic. He follows up with Dr. Jaquez as outpatient. #5 status post TURP: This was done 10 days ago, denied the symptoms, no hematuria. #6 DVT prophylaxis: Therapeutic Lovenox twice daily, continue Coumadin, check INR tomorrow morning. This note was generated with [employer] dictation software. It may contain incorrect words, spelling, and punctuation that were not noted in checking the note before signing. OBSV E&M: 72182 Initial observation care L3
--- NOTE | 2020-02-18 19:22 | EKG12_ITS ---
Test Reason : CP Blood Pressure : / mmHG Vent. Rate : 072 BPM Atrial Rate : 072 BPM P-R Int : 190 ms QRS Dur : 090 ms QT Int : 374 ms P-R-T Axes : 045 000 009 degrees QTc Int : 409 ms Normal sinus rhythm Voltage criteria for left ventricular hypertrophy Abnormal ECG Confirmed by ANASTACIA MASSEY, GENE ([id number]), marketing editor GLENIS MORAES ([id number]) on 02/20/2020 1:35:45 PM Referred By: MIAN Confirmed By:GENE GALAVIZ MD
[2020-02-18] MEDS: Enoxaparin 100 MG/ML Syringe 90 MG SC (20:26)
[2020-02-18] MEDS: Metoprolol Tartrate 50 MG Tablet PO (22:02)
[2020-02-19 03:00] VITALS: PULSE 65
[2020-02-19 04:00] VITALS: BP 121/74; PULSE 64; RESP 16; TEMP 36.5; O2SAT 92
--- NOTE | 2020-02-19 05:55 | EKG12_ITS ---
Test Reason : AM EKG Blood Pressure : / mmHG Vent. Rate : 063 BPM Atrial Rate : 063 BPM P-R Int : 180 ms QRS Dur : 090 ms QT Int : 420 ms P-R-T Axes : 047 007 016 degrees QTc Int : 429 ms Normal sinus rhythm Normal ECG When compared with ECG of 18-FEB-2020 19:25, MANUAL COMPARISON REQUIRED, DATA IS UNCONFIRMED Confirmed by ANGELITO DON ([id number]), web content editor GLENIS MORAES ([id number]) on 02/22/2020 10:42:00 AM Referred By: NOEMÍ Confirmed By:ANGELITO DON
[2020-02-19] MEDS: Aspirin 81 MG TAB.CHEW PO (06:29)
[2020-02-19 07:06] LABS: International Normalized Ratio 1.1; Prothrombin Time (Protime)PT. 14.1 SECONDS (11.7-14.9)
[2020-02-19 07:12] VITALS: PULSE 71
[2020-02-19 07:50] VITALS: O2SAT 93
[2020-02-19 07:52] VITALS: BP 119/78; PULSE 68; RESP 16; TEMP 36.8; O2SAT 97
--- NOTE | 2020-02-19 10:39 | STRESSREP_ITS ---
Stress Test Report Date: 02-19-2020 Procedure: Pharmacologic stress nuclear imaging study Indications: Chest pain; PSVT; PVT Consent: Per the patient Procedure: The patient underwent pharmacologic (Regadenoson) evaluation with a peak heart rate of 86 beats per minute (54 %predicted maximal heart rate) and a peak blood pressure of 120/72 mmHg. The baseline ECG demonstrated normal sinus rhythm. The peak pharmacologic ECG demonstrated no obvious ECG changes. There were no cardiac dysrhythmias pretest, during pharmacologic infusion, or recovery. There was no complaint of chest discomfort during pharmacologic infusion or recovery. The examination was discontinued secondary to completion of protocol. Impression: 1. Pharmacologic (Regadenoson) evaluation 2. Peak pharmacologic ECG with no obvious ECG changes. 3. There were no cardiac dysrhythmias pretest, during pharmacologic infusion, or recovery. 4. Nuclear images pending Myocardial perfusion imaging study: Technique: The patient was injected with 11.9 millicuries of technetium 99m Cardiolite and subsequently rest SPECT Cardiolite nuclear imaging was obtained in the horizontal long, vertical long, and short axis views. The patient underwent pharmacologic (Regadenoson) evaluation with a peak heart rate of 86 beats per minute (54 % percent predicted maximal heart rate) and a peak blood pressure of 120/72 mmHg. The patient was injected with 34.1 millicuries of technetium 99m Cardiolite and subsequently stress SPECT Cardiolite nuclear imaging was obtained in the horizontal long, vertical long, and short axis views. A gated Cardiolite study at peak stress was obtained. Interpretation: Rest and stress SPECT Cardiolite nuclear imaging status post realignment, normalization, and attenuation correction demonstrate at rest a small area of subtle diminished tracer uptake near the apical segments which appears to improve/normalize following stress. There is end systolic thickening and brightening. The gated Cardiolite study demonstrates myocardial thickening and inward wall motion. The reported LVEF is 88 %. Impression: 1. Rest and stress SPECT current nuclear imaging demonstrate myocardial perfusion changes at rest which appear to improve/normalize following stress appearing compatible with an element of shifting soft tissue attenuation/artifact with no myocardial perfusion changes considered diagnostic for associated stress-induced myocardial ischemia. 2. The gated Cardiolite study reports an LVEF of 58 %. This note was generated with [employer] software. It may contain incorrect words, spelling, and punctuation that were not noted in checking the note before signing.
[2020-02-19 11:53] LABS: Pathologist Review Reviewed
--- NOTE | 2020-02-19 12:13 | DCINST_ITS ---
- Discharge Diagnoses Current Active Problems: Current Active and Chronic Problems Chest pain, midsternal (Acute) You will use the following diet at home:: No restrictions Your food should be the consistency of: Regular Your liquids should be the consistency of: Regular/Thin Discharge Activity: Return to Normal Activity May resume sexual activity in: No Restrictions Call your doctor if you observe: Shortness of breath, Dizziness, Swelling in the ankles, Chest pain Allergies/Adverse Reactions: Allergies No Known Allergies Allergy (Verified 02/18/20 14:39) Medications to take at Discharge Warfarin [Coumadin] 7.5 mg PO DAILY 02/06/20 Aspirin [Aspirin, Baby] 81 mg PO DAILY@0800 #30 tab.chew 02/17/20 Metoprolol Tartrate [Lopressor (beta srinivas)] 50 mg PO BID 02/18/20 Primary Care Physician: Roderick Saleh MD [Primary Care Provider] - Test Results: Test results from this visit will be discussed in further detail at your follow- up appointment, if applicable. Please Follow Up With: Leonardo Wilson MD When: as directed
--- NOTE | 2020-02-19 12:14 | DS.PCM_ITS ---
Discharge Date and Diagnosis - Problem List Patient Problems: Active and Suspected Problems Chest pain, midsternal (Acute) Date of Admission: 02/18/20 Date of Discharge: 02/19/20 - Primary Discharge Diagnosis Acute Problems: Active Problems Chest pain, midsternal (Acute) - Secondary Discharge Diagnosis Chronic Problems: Chronic Problems TOÑO (obstructive sleep apnea) (Chronic) Thromboembolism (Chronic) CLL (chronic lymphocytic leukemia) (Chronic) Cardiac murmur (Chronic) Deep vein thrombosis (DVT) of left lower extremity (Chronic) Hospital Course and Treatment Imaging Results: 02/19/20 05:55 Nuclear Stress Test - Chemical [NM] AM (NON MEDS) Stress Test Report Date: 02-19-2020 Procedure: Pharmacologic stress nuclear imaging study Indications: Chest pain; PSVT; PVT Consent: Per the patient Procedure: The patient underwent pharmacologic (Regadenoson) evaluation with a peak heart rate of 86 beats per minute (54 %predicted maximal heart rate) and a peak blood pressure of 120/72 mmHg. The baseline ECG demonstrated normal sinus rhythm. The peak pharmacologic ECG demonstrated no obvious ECG changes. There were no cardiac dysrhythmias pretest, during pharmacologic infusion, or recovery. There was no complaint of chest discomfort during pharmacologic infusion or recovery. The examination was discontinued secondary to completion of protocol. Impression: 1. Pharmacologic (Regadenoson) evaluation 2. Peak pharmacologic ECG with no obvious ECG changes. 3. There were no cardiac dysrhythmias pretest, during pharmacologic infusion, or recovery. 4. Nuclear images pending Myocardial perfusion imaging study: Technique: The patient was injected with 11.9 millicuries of technetium 99m Cardiolite and subsequently rest SPECT Cardiolite nuclear imaging was obtained in the horizontal long, vertical long, and short axis views. The patient underwent pharmacologic (Regadenoson) evaluation with a peak heart rate of 86 beats per minute (54 % percent predicted maximal heart rate) and a peak blood pressure of 120/72 mmHg. The patient was injected with 34.1 millicuries of technetium 99m Ca rdiolite and subsequently stress SPECT Cardiolite nuclear imaging was obtained in the horizontal long, vertical long, and short axis views. A gated Cardiolite study at peak stress was obtained. Interpretation: Rest and stress SPECT Cardiolite nuclear imaging status post realignment, normalization, and attenuation correction demonstrate at rest a small area of subtle diminished tracer uptake near the apical segments which appears to improve/normalize following stress. There is end systolic thickening and brightening. The gated Cardiolite study demonstrates myocardial thickening and inward wall motion. The reported LVEF is 88 %. Impression: 1. Rest and stress SPECT current nuclear imaging demonstrate myocardial perfusion changes at rest which appear to improve/normalize following stress appearing compatible with an element of shifting soft tissue attenuation/artifact with no myocardial perfusion changes considered diagnostic for associated stress-induced myocardial ischemia. 2. The gated Cardiolite study reports an LVEF of 58 %. None Operations: None Procedures: Nuclear stress test Summary of Care Provided: Mr. He is a 64 year old M who presented to the ED on 02/17 because of chest pain. His symptoms started at around 11 AM when he was sitting on the day of admission and consisted of left-sided chest pain that is intermittent and came in short episodes of what he described as shock or spasm like pain. It was coming on once or twice per minute 8 out of 10 in severity. It was associated with shortness of breath and aggravated by taking a deep breath. He was discharged from the hospital on 02/16 after being admitted for a cardiac arrhythmia. He is supposed to go for a heart catheterization but that was postponed as patient history of TURP 10 days prior and him being recommended not to start Plavix if the patient needed to have a stent placed. He has history of left leg DVT that was diagnosed about 3 weeks ago and he has been on Coumadin but treatment was interrupted for his TURP surgery, He restarted taking his Coumadin on 02/15. In the ED his vital signs were stable. His routine blood work was remarkable for significant chronic leukocytosis secondary to CLL but otherwise normal. EKG revealed normal sinus rhythm, normal IA interval, normal QRS, normal QTC, no acute segment changes. Troponin was negative and maintained to be negative x 3. CTA chest done and showed no PE or dissection. The case was discussed with cardiology given recent events and they recommended a nuclear stress test. A stress test was done today and was negative for inducible ischemia. He has had no further CP since admission and is feeling well. Patient Problems: Active and Suspected Problems Chest pain, midsternal (Acute) Subjective: Pt states that he is feeling well. States that he has had no more sx and is anxious to go home. - Physical Exam Vitals/I&O's: Vital Signs Temp Pulse Resp BP Pulse Ox 98.3 F 68 16 119/78 97 02/19/20 07:52 02/19/20 07:52 02/19/20 07:52 02/19/20 07:52 02/19/20 07:52 Oxygen Flow Rate (L/min) 2 Oxygen Delivery Method Room Air Weight: 89.6 kg Body Mass Index (BMI) 30.9 Intake and Output for Last 24 Hours 02/17/20 02/18/20 02/19/20 23:59 23:59 23:59 Intake Total 480 / 480 300 / 300 Balance 480 / 480 300 / 300 General: Alert, Oriented x3, Cooperative, No apparent distress, Well developed, Well nourished, - - at bedside, very pleasant Lungs: Clear to auscultation, Normal air movement, No rhonchi, No wheeze, No rales Cardiovascular: Regular rate, Regular Rhythm, Normal S1, Normal S2, No murmurs, No Ectopic Activity, No rub noted, No Gallop Abdomen: Bowel Sounds Present, Soft, Non Tender, Non-Distended, No hernias noted Extremities: No clubbing, No cyanosis, No edema, Capillary Refill Less than 3 Seconds Skin: No rashes, No breakdown Musculoskeletal: No Tenderness to Palpation of Joints or Extremities, No Muscle Wasting, Arthritic Changes Neurological: Neuro grossly intact Psych/Mental Status: Normal Affect, Appropriate, Alert and oriented to time, place, person, mood and affect Laboratory Results 02/18/20 14:50: WBC 47.6 H*, RBC 3.75 L, Hgb 11.1 L, Hct 35.4 L, MCV 94.4 H, MCH 29.6, MCHC 31.4 L, RDW Std Deviation 52.8 H, RDW Coeff of Diogo 15.9 H, Plt Count 211, MPV 10.3, Immature Gran % (Auto) 0.100, Neut % (Auto) 9.6 L, Lymph % (Auto) 89.4 H, [place] % (Auto) 0.6, Eos % (Auto) 0.2, Baso % (Auto) 0.1, Absolute Neuts (auto) 4.6, Absolute Lymphs (auto) 42.52 H, Nucleated RBC % 0, Differential Comment , Diff Path Review Reviewed 02/18/20 14:50: Sodium 142, Potassium 4.1, Chloride 108 H, Carbon Dioxide 30.0, Anion Gap 4 L, BUN 19 H, Creatinine 0.74, Estim Creat Clear Calc 95.53, Est GFR (MDRD) Af Amer 138, Est GFR (MDRD) Non-Af 114, BUN/Creatinine Ratio 25.8 H, Glucose 105, Calcium 8.4 L, Troponin I < 0.015 02/18/20 14:50: PT 13.8, INR 1.1 02/18/20 19:05: Troponin I < 0.015 02/18/20 22:08: Troponin I < 0.015 02/19/20 06:00: PT 14.1, INR 1.1 Current Medications Acetaminophen (Tylenol) 650 mg PO Q6H PRN PRN PRN Reason: Pain Score 1-10/Temp > 100.7 F Aspirin (Aspirin, Baby) 81 mg PO DAILY@0800 [facility] Last Admin: 02/19/20 06:29 Dose: 81 mg Documented by: Enoxaparin Sodium (Lovenox) 90 mg SC Q12@0600,1800 [facility] Last Admin: 02/19/20 06:31 Dose: Not Given Documented by: Metoprolol Tartrate (Lopressor (Beta Ric)) 50 mg PO BID [facility] Last Admin: 02/19/20 12:05 Dose: Not Given Documented by: Nitroglycerin (Nitrostat) 0.4 mg SUBLINGUAL Q5M PRN PRN Reason: CHEST PAIN Ondansetron HCl (Zofran) 4 mg IV Q8H PRN PRN PRN Reason: NAUSEA/VOMITING Senna/Docusate Sodium (Senokot-S, Megha-Colace) 2 tablet PO BID PRN PRN PRN Reason: Constipation Sodium Chloride () 10 - 40 ml IV UD PRN PRN Reason: SALINE FLUSH Warfarin Sodium (Coumadin (Pbkc)) 7.5 mg PO DAILY@1700 [facility] Last Admin: 02/18/20 20:25 Dose: 7.5 mg Documented by: Zolpidem Tartrate (Ambien (Generic)) 5 mg PO QHS PRN PRN PRN Reason: INSOMNIA Discharge Activity: Return to Normal Activity May resume sexual activity in: No Restrictions Call your doctor if you observe: Shortness of breath, Dizziness, Swelling in the ankles, Chest pain Home Medications: Medications to take at Discharge Warfarin [Coumadin] 7.5 mg PO DAILY 02/06/20 Aspirin [Aspirin, Baby] 81 mg PO DAILY@0800 #30 tab.chew 02/17/20 Metoprolol Tartrate [Lopressor (beta ric)] 50 mg PO BID 02/18/20 Primary Care Physician: Roderick Saleh MD [Primary Care Provider] - Please Follow Up With: Leonardo Wilson MD When: as directed Medical Necessity - Tobacco Use Smoking Status: Never smoker Meaningful Use Info Meaningful Use Diagnoses (Choose all that apply): None applicable Inpatient E&M: 94068 Disch Hosp
--- NOTE | 2020-02-19 14:02 | PHA.DC.MR ---
Pharmacy Service has performed discharge medication reconciliation for this patient. The patient's discharge medication list was reviewed for discrepancies and discrepancies were resolved. This [facility] asked Dr. Lara is patient should go home with Lovenox bridge d/t INR of 1.1 x 4 days. She told the patient he should have a bridge but patient refused. Home Medications Warfarin [Coumadin] 7.5 mg PO DAILY 02/06/20 Aspirin [Aspirin, Baby] 81 mg PO DAILY@0800 #30 tab.chew 02/17/20 Metoprolol Tartrate [Lopressor (beta srinivas)] 50 mg PO BID 02/18/20
== END 2020-02-19 12:13 | disposition home or self-care (01) ==
LOC: ED 14:58 → PCU 18:57
PROVIDERS: Admitting Provider Hospitalist; Emergency Provider Emergency Medicine; PCP Family Medicine; Visit Provider Internal Medicine
DX: R07.89 Other chest pain (principal); R06.09 Other forms of dyspnea; C91.10 Chronic lymphocytic leukemia of B-cell type not having achieved remission; G47.33 Obstructive sleep apnea (adult) (pediatric); I82.402 Acute embolism and thrombosis of unspecified deep veins of left lower extremity; I47.1 Supraventricular tachycardia; Z79.899 Other long term (current) drug therapy; Z79.01 Long term (current) use of anticoagulants; Z79.82 Long term (current) use of aspirin
CPT/HCPCS: 36415; 71045; 71275; 78452; 80048; 84484; 85025; 85610; 93005; 93017; 96372; 99218; 99285; A9500; Q9967; A4216; G0378; J2785

== ENCOUNTER 2020-05-14 09:41 | Inpatient (IN) | payer MEDICARE, SELFPAY ==
[2020-04-15 15:16] VITALS: BMI 32.2
[2020-05-14] VITALS (15 sets, daily range): BP systolic 101–133; BP diastolic 67–90; PULSE 79–115; RESP 16–27; TEMP 36.1–37.6; O2SAT 88–95; BMI 31.3; BMI 31.4
--- NOTE | 2020-05-14 09:57 | RAD_ITS ---
STUDY: X-RAY CHEST REASON FOR EXAM: Male, 65 years old. COUGH, SOB, COVID POSITIVE TECHNIQUE: Single AP portable view of the chest. COMPARISON: 02/18/2020. FINDINGS: Cardiac silhouette unremarkable. Mild congestion. Aorta calcified. No pleural effusions. Multifocal patchy airspace opacities. Upper abdomen unremarkable. Osseous structures demineralized with degenerative features. No pneumothorax. RAD/Chest 1 View (Portable) IMPRESSION: Multifocal airspace opacities (potential infectious etiology) Electronically Signed: Marc Leo DO at 11:02 EST Tel , Service support ,
--- NOTE | 2020-05-14 10:01 | ED.VIS.DYS ---
History of Present Illness Chief Complaint: Shortness of Breath Informant: Patient Onset: Days - several Activity at onset: Light Activity Timing: Intermittent Quality: Dyspnea on exertion Current Severity: Mild Maximum Severity: Moderate Worsened by: Coughing, Exertion Relieved by: Rest Associated Symptoms: Cough, Fever Chest Pain: Continuous, Tightness - substernal Narrative: Patient has been ill for about 13 days, tested positive as an outpatient for COVID-19 which was performed at the hospital in [place], he states he has been developing chest discomfort and dyspnea that is worsening. Still having subjective fevers. He is on warfarin for history of a remote lower extremity DVT, and takes metoprolol for that as well. He sees Dr. Ortega with oncology because of CLL for which he takes home pill/medication that he cannot recall. He was advised to stop that recently because of his recent diagnosis. He has been checking his pulse ox at home, in the last day or 2 it has been going as low as 88% on room air while at rest. He has no history of lung disease and is not on any oxygen at home. 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 Past Medical History - Allergies and Home Meds Allergies/Adverse Reactions: Allergies No Known Allergies Allergy (Verified 05/14/20 09:41) Primary Care Physician: Roderick Saleh MD [Primary Care Provider] - Doctors: jung - mike-onc Surgical History: total knee arthroplasty, TURP Smoking Status: Never smoker - Family History Maternal Family History: Reports: Heart Disease Paternal Family History: Reports: No pertinent history Review of Systems General: Reports: Chills, Fever, Malaise Eyes: Denies: Visual changes - bilaterally, Diplopia ENT: Denies: Bilateral ear pain, Rhinorrhea, Sore throat Cardiovascular: Reports: Chest pain. Denies: Palpitations Respiratory: Reports: Dyspnea, Cough, Dyspnea on exertion. Denies: Sputum Gastrointestinal: Reports: Nausea - gone now, Vomiting - gone now, Diarrhea - gone now. Denies: Abdominal pain, Melena, Hematochezia Genitourinary: Denies: Dysuria, Hematuria, Frequency Musculoskeletal: Reports: Myalgias. Denies: Neck pain, Swelling Skin: Denies: Rash, Wounds Neurological: Denies: Headache, Weakness, Numbness Psych: Denies: Depression, Suicidal thoughts Physical Exam Vital Signs/Narrative: Vital Signs Temp Pulse Resp BP Pulse Ox 05/14/20 09:42 99.7 F H 115 H 27 H 101/67 88 Inital Vital Signs reviewed: Yes General: Well nourished, Well developed, No Acute Distress Head: Normocephalic, Atraumatic Eyes: Perrl, EOMI ENT: Moist mucous membranes, No rhinorrhea Neck: Supple, Nontender, No lymphadenopathy Cardiovascular: Regular rate, Regular rhythm, No murmurs, Tachycardia - mild Respiratory: No distress, Chest nontender, Rales - right base Abdomen: Soft, Nontender, Nondistended, Normal bowel sounds Back: Nontender, Normal Inspection Extremities: Nontender, No edema. Negative for: Calf Tenderness Skin: Normal color, No rash, No Trauma Neurological: Alert, Oriented x3, Cranial nerves II-XII grossly intact, Normal Strength, Normal Sensation Psychological: Normal affect, Normal Mood Diagnostic/Tx/Re-eval Impressions Chest X-Ray 05/14/20 09:57 IMPRESSION: Multifocal airspace opacities (potential infectious etiology) Electronically Signed: Marc Leo DO at 11:02 EST Tel , Service support , 05/14/20 09:57 Chest 1 View (Portable) [RAD] Stat Laboratory Results 05/14/20 05/14/20 05/14/20 10:16 10:16 10:16 WBC 25.0 H RBC 4.49 L Hgb 12.8 L Hct 39.5 L MCV 88.0 MCH 28.5 MCHC 32.4 RDW Std Deviation 47.6 H RDW Coeff of Diogo 14.6 Plt Count 212 MPV 10.6 Immature Gran % (Auto) 0.200 Neut % (Auto) 17.5 L Lymph % (Auto) 81.9 H Cecil % (Auto) 0.3 Eos % (Auto) 0.0 Baso % (Auto) 0.1 Absolute Neuts (auto) 4.4 Absolute Lymphs (auto) 20.46 H Nucleated RBC % 0 Differential Comment SCANNED Sodium 131 L Potassium 4.1 Chloride 100 Carbon Dioxide 25.0 Anion Gap 6 BUN 12 Creatinine 0.85 Estim Creat Clear Calc 82.08 Est GFR (MDRD) Af Amer 116 Est GFR (MDRD) Non-Af 96 BUN/Creatinine Ratio 14.1 Glucose 108 H Lactic Acid 0.8 Calcium 8.8 Total Bilirubin 0.40 AST 21 ALT 28 Alkaline Phosphatase 92 Troponin I < 0.015 Total Protein 7.4 Albumin 2.7 L Globulin 4.7 H Albumin/Globulin Ratio 0.6 L Treatment - Dyspnea: Oxygen, Antibiotics, Steroid Repeat Evaluation: Improved - Medical Decision Making Patient has a significant white count along with a trace on his x-ray. Suspect Covid pneumonia however with his significant leukocytosis, unable to rule out the possibility of bacterial superinfection which was covered with IV antibiotics. He was already started on doxycycline apparently prior to coming here. Given his oxygen requirement, plan is for admission. Clinically does not require the ICU at this time and is stable at rest on oxygen satting well. Decadron 6 mg given along with Rocephin and Zithromax. ED Disposition - Plan for ED Patient: Disposition: Acute Care Hospital [facility] Diagnosis: Hypoxemia, Pneumonia due to COVID-19 virus, Sepsis due to pneumonia Referrals: Roderick Saleh MD [Primary Care Provider] -
[2020-05-14] MEDS: Acetaminophen 325 MG Tablet 650 MG PO (10:31)
[2020-05-14] MEDS: Ketorolac 15 MG/ML Vial IV (10:31)
[2020-05-14] MEDS: 0.9% Normal Saline 1,000 ML 200 ML IV ×3 (10:31→20:28)
[2020-05-14 10:59] LABS: Absolute Lymphocyte Count 20.46 X10^3/uL (0.83-4.51); Absolute Neutrophil Count 4.4 X10^3/uL (2.0-7.7); Basophil# 0.03 X10^3/uL; Basophil% 0.1 % (0-1); Hematocrit 39.5 % (40-54); Hemoglobin 12.8 g/dL (13.0-16.5); Lymphocyte # 20.46 X10^3/ul (4.0); Lymphocyte % 81.9 % (19-41); Mean Corp Hgb Conc 32.4 g/dL (32-36); Mean Corpuscular Hgb 28.5 pg (27.0-32.0); Mean Platelet Vol. 10.6 fl (6.2-12.0); Monocyte# 0.08 X10^3/uL; Monocyte% 0.3 % (0-10); NRBC Flagged by Analyzer 0 % (0-5); Neutrophil # 4.36 X10^3/uL (2.7-7.7); Neutrophil % 17.5 % (47-70); POSITIVE DIFFERENTIAL YES; POSITIVE MORPHOLOGY YES; Platelet Count 212 K/mm3 (150-450); RBC Distribution Width CV 14.6 % (11.6-14.6); RBC Distribution Width SD 47.6 fl (35.1-43.9); Red Blood Count 4.49 M/mm3 (4.6-6.2)
[2020-05-14 11:01] LABS: Differential Indicated SCAN CRITERIA MET
[2020-05-14 11:11] LABS: ALB/GLOB Ratio 0.6 RATIO (0.9-2.4); AST(SGOT) 21 U/L (15-37); Alanine Aminotransfer ALT/SGPT 28 U/L (16-61); Albumin, Serum 2.7 g/dL (3.2-5.0); Alkaline Phosphatase 92 U/L (45-117); Anion Gap 6 (5-15); BUN 12 mg/dL (7-18); BUN/Creat Ratio 14.1 RATIO (10-20); Calcium,Total 8.8 mg/dL (8.5-10.1); Chloride 100 mmol/L (98-107); Creatinine, Serum 0.85 mg/dL (0.70-1.30); EST Glomerular Filtration Rate 96 mL/min (>60); Est Glom Filt Rate - Afr Amer 116 mL/min (>60); Estimated Creatinine Clearance 82.08 ml/min; Globulin 4.7 g/dL (2.2-4.2); Glucose 108 mg/dL (74-106); Potassium 4.1 mmol/L (3.5-5.1); Protein, Total 7.4 g/dL (6.4-8.2); Sodium Level 131 mmol/L (136-145)
[2020-05-14 11:32] LABS: Lactic Acid 0.8 mmol/L (0.4-1.9)
[2020-05-14 11:37] LABS: Differential Comment SCANNED
[2020-05-14] MEDS: dexAMETHasone 10 MG/ML Vial 6 MG IV (11:37)
[2020-05-14 12:16] LABS: International Normalized Ratio 2.6; Prothrombin Time (Protime)PT. 27.4 SECONDS (11.7-14.9)
--- NOTE | 2020-05-14 12:22 | HP.PCM_ITS ---
History of Present Illness Date of Admission: 05/14/20 Chief Complaint: shortness of breath. The patient is a 65 year old M with a past medical history of CLL and TOÑO as well as a history of DVT of the left lower extremity. He was admitted through the ED on 05/14/2020 with a complaint of shortness of breath which was worsening. He also complained of chest discomfort as well as subjective fever. Patient had an outpatient positive test for COVID-19 about 5 days prior to admission, and had been isolating at home. However his shortness of breath and chest tightness had been worsening so he decided to come into the ED. He checked his pulse ox at home he said in the last CO2 had been as low as 88% on room air while at rest. He is not on oxygen at home. Review of symptoms otherwise negative. In the ED, vitals showed temperature of 91.9 with blood pressure of 120/78, pulse rate of 99 and respiratory rate of 20. He was saturating at 94% on 2 L of oxygen. Chemistry showed sodium of 131 but was otherwise unremarkable. CBC showed WBC of 25 and hemoglobin of 12.8. Elevated white cell count was predominantly lymphocytic. This x-ray done showed multifocal airspace opacities. He has been admitted to be managed for acute hypoxic respiratory insufficiency COVID-19 infection. [] Past Medical History Past Medical History (Chronic Problems): Chronic Problems TOÑO (obstructive sleep apnea) (Chronic) Thromboembolism (Chronic) CLL (chronic lymphocytic leukemia) (Chronic) Cardiac murmur (Chronic) Deep vein thrombosis (DVT) of left lower extremity (Chronic) Allergies No Known Allergies Allergy (Verified 05/14/20 09:41) Home Medications: Ambulatory Orders Medication Instructions Recorded Warfarin [Coumadin] 7.5 mg PO DAILY 02/06/20 metoprolol tartrate 50 mg tablet 50 mg PO BID #180 tab 03/20/20 Doxycycline 100 mg PO BID 05/14/20 Surgical History: total knee arthroplasty, TURP Lives: With Family Smoking Status: Former smoker Alcohol: None Drugs: None - *Family History Maternal History Items: Heart Disease Paternal History Items: No pertinent history Review of Systems Constitutional: Reports: Malaise, Weakness. Denies: Chills, Fever, Weight Change Eyes: Denies: Blurred vision HEENT: Denies: Head Aches, Sinus Congestion, Sinus Drainage Cardiovascular: Reports: Chest Tightness. Denies: Chest Pain, Chest Pressure, Heaviness, Light Headedness, Orthopnea, Palpitations, Paroxysmal Noc. Dyspnea, Syncope Respiratory: Reports: Shortness of Breath, Shortness of breath at rest, Shortness of breath upon exertion. Denies: Cough, Sputum production Gastrointestinal: Denies: Abdominal Pain, Nausea, Vomiting Genitourinary: Denies: Dysuria Musculoskeletal: Denies: Joint Pain, Joint Tenderness Skin: Denies: Rash, Wounds Neurological: Denies: Numbness, Tingling, Focal weakness Psychiatric: Denies: Anxiety, Depression, Homicidal Ideations, Suicidal Ideations Hematologic/ Lymphatic: Denies: Easy Bruising, Easy Bleeding VTE Information - Inpt Only VTE Present on Admission: No VTE Pharm Prophylaxis ordered?: Yes Patient Problems: Active and Suspected Problems Hypoxemia (Acute) Pneumonia due to COVID-19 virus (Acute) Sepsis due to pneumonia (Acute) - Physical Exam Vitals/I&O's: Vital Signs Temp Pulse Resp BP Pulse Ox 97.9 F 99 20 H 120/78 94 05/14/20 11:02 05/14/20 11:02 05/14/20 11:02 05/14/20 11:02 05/14/20 11:02 Oxygen Flow Rate (L/min) 2 Oxygen Delivery Method Nasal Cannula Weight: 200 lb Body Mass Index (BMI) 31.3 General: Alert, Oriented x3, Cooperative HEENT: Atraumatic, PERRLA, EOMI, Normocephalic Neck: Supple, No JVD, Negative Carotid Bruits Lungs: - - Diminished breath sounds bibasally. No wheezes or crackles. On 2L of oxygen by nasal canula Cardiovascular: Regular rate, Regular Rhythm, Normal S1, Normal S2, No murmurs Abdomen: Bowel Sounds Present, Soft, Non Tender Extremities: No edema, Capillary Refill Less than 3 Seconds Skin: No rashes, No breakdown Musculoskeletal: No Tenderness to Palpation of Joints or Extremities Lymphatic: No Cervical, Supraclavicular, or Inguinal Adenopathy Neurological: Cranial nerves II-XII grossly intact, Neuro grossly intact, Motor Exam 5/5 strength throughout Psych/Mental Status: Normal Affect, Appropriate, Alert and oriented to time, place, person, mood and affect Laboratory Results 05/14/20 10:16: WBC 25.0 H, RBC 4.49 L, Hgb 12.8 L, Hct 39.5 L, MCV 88.0, MCH 28.5, MCHC 32.4, RDW Std Deviation 47.6 H, RDW Coeff of Diogo 14.6, Plt Count 212, MPV 10.6, Immature Gran % (Auto) 0.200, Neut % (Auto) 17.5 L, Lymph % (Auto) 81.9 H, [place] % (Auto) 0.3, Eos % (Auto) 0.0, Baso % (Auto) 0.1, Absolute Neuts (auto) 4.4, Absolute Lymphs (auto) 20.46 H, Nucleated RBC % 0, Differential Comment SCANNED 05/14/20 10:16: Sodium 131 L, Potassium 4.1, Chloride 100, Carbon Dioxide 25.0, Anion Gap 6, BUN 12, Creatinine 0.85, Estim Creat Clear Calc 82.08, Est GFR (MDRD) Af Amer 116, Est GFR (MDRD) Non-Af 96, BUN/Creatinine Ratio 14.1, Glucose 108 H, Calcium 8.8, Total Bilirubin 0.40, AST 21, ALT 28, Alkaline Phosphatase 92, Troponin I < 0.015, Total Protein 7.4, Albumin 2.7 L, Globulin 4.7 H, Albumin/Globulin Ratio 0.6 L 05/14/20 10:16: Lactic Acid 0.8 05/14/20 10:16: PT 27.4 H, INR 2.6 Diagnostic Data Chest X-Ray 05/14/20 09:57 IMPRESSION: Multifocal airspace opacities (potential infectious etiology) Electronically Signed: Marc Leo DO at 11:02 EST Tel , Service support , Current Medications Sodium Chloride () 1,000 mls @ 200 mls/hr IV .Q5H JOSHUA Last Admin: 05/14/20 10:31 Dose: 200 mls/hr Documented by: Azithromycin 500 mg/ Dextrose 255 mls @ 250 mls/hr IV X1 ONE Stop: 05/14/20 13:09 Ceftriaxone Sodium (Rocephin) 1 gm in 50 mls @ 100 mls/hr IV X1 ONE Stop: 05/14/20 12:37 Assessment/Plan All Active Problems Hypoxemia (Acute) Pneumonia due to COVID-19 virus (Acute) Sepsis due to pneumonia (Acute) Chest pain, midsternal (Acute) 65-year-old admitted with a complaint of shortness of breath. #Acute COVID-19 pneumonia * Positive several days ago at [place]. * Admits to [facility] to [facility] floor * Titrate oxygen to maintain saturation above 90%. Start IV Decadron. * Breathing treatments with bronchodilators. * Consult infectious diseases * #. Acute hypoxic respiratory insufficiency due to COVID 19 infection * management as above * #History of left lower extremity DVT: On Coumadin. INR therapeutic. #TOÑO: stable DVT prophylaxis: Already on Coumadin and anticoagulated. CODE STATUS: Full code * Patient counseled extensively about different types of CODE STATUS including full code, DNR CCA and DNR CCA. Patient elects to be full code. * Total [id number] time 17 minutes. Inpatient E&M: 29045 Init Hosp L3 Procedures: 65115 Advncd Care Plan 30 Min
--- NOTE | 2020-05-14 12:55 | NURSING ---
121 kj hollins, sepsis
[2020-05-14] MEDS: Ceftriaxone 1 GM/50 ML BAG IV (13:04)
--- NOTE | 2020-05-14 17:35 | CON.PCM_ITS ---
Problem List (1) Pneumonia due to COVID-19 virus Status: Acute Reason for Consult: covid Consulted by: Dr. Hogue History of Present Illness: The patient is a 65 year old M with 12 days of symptoms, feeling sick. Denies cough, SOB, fever, chills, n/v/d, aches, headache, change in taste or smell. Came to ED, hypoxic, started on O2, dex, given azithro/ceftriaxone. High wbc. Feeling better this afternoon. No sputum. Full ROS performed and neg except as noted above. - Medical History Past Medical History (Chronic Problems): Chronic Problems TOÑO (obstructive sleep apnea) (Chronic) Thromboembolism (Chronic) CLL (chronic lymphocytic leukemia) (Chronic) Cardiac murmur (Chronic) Deep vein thrombosis (DVT) of left lower extremity (Chronic) Allergies/Adverse Reactions: Allergies No Known Allergies Allergy (Verified 05/14/20 09:41) Home Medications: Ambulatory Orders Medication Instructions Recorded Warfarin [Coumadin] 7.5 mg PO DAILY 02/06/20 metoprolol tartrate 50 mg tablet 50 mg PO BID #180 tab 03/20/20 Doxycycline 100 mg PO BID 05/14/20 - Social History Tobacco Use: non-smoker Vital Signs Temp Pulse Resp BP Pulse Ox 97.0 F L 79 18 123/80 H 92 05/14/20 15:15 05/14/20 16:00 05/14/20 15:15 05/14/20 15:15 05/14/20 15:15 Oxygen Flow Rate (L/min) 2 Oxygen Delivery Method Nasal Cannula Weight: 90.945 kg Body Mass Index (BMI) 31.4 Laboratory Tests Past 24 Hrs 05/14/20 05/14/20 05/14/20 10:16 10:16 10:16 WBC 25.0 H RBC 4.49 L Hgb 12.8 L Hct 39.5 L MCV 88.0 MCH 28.5 MCHC 32.4 RDW Std Deviation 47.6 H RDW Coeff of Diogo 14.6 Plt Count 212 MPV 10.6 Immature Gran % (Auto) 0.200 Neut % (Auto) 17.5 L Lymph % (Auto) 81.9 H [place] % (Auto) 0.3 Eos % (Auto) 0.0 Baso % (Auto) 0.1 Absolute Neuts (auto) 4.4 Absolute Lymphs (auto) 20.46 H Nucleated RBC % 0 Differential Comment SCANNED PT INR Sodium 131 L Potassium 4.1 Chloride 100 Carbon Dioxide 25.0 Anion Gap 6 BUN 12 Creatinine 0.85 Estim Creat Clear Calc 82.08 Est GFR (MDRD) Af Amer 116 Est GFR (MDRD) Non-Af 96 BUN/Creatinine Ratio 14.1 Glucose 108 H Lactic Acid 0.8 Calcium 8.8 Total Bilirubin 0.40 AST 21 ALT 28 Alkaline Phosphatase 92 Troponin I < 0.015 Total Protein 7.4 Albumin 2.7 L Globulin 4.7 H Albumin/Globulin Ratio 0.6 L Procalcitonin 05/14/20 05/14/20 05/14/20 10:16 14:58 15:21 WBC RBC Hgb Hct MCV MCH MCHC RDW Std Deviation RDW Coeff of Diogo Plt Count MPV Immature Gran % (Auto) Neut % (Auto) Lymph % (Auto) [place] % (Auto) Eos % (Auto) Baso % (Auto) Absolute Neuts (auto) Absolute Lymphs (auto) Nucleated RBC % Differential Comment PT 27.4 H INR 2.6 Sodium Potassium Chloride Carbon Dioxide Anion Gap BUN Creatinine Estim Creat Clear Calc Est GFR (MDRD) Af Amer Est GFR (MDRD) Non-Af BUN/Creatinine Ratio Glucose Lactic Acid Calcium Total Bilirubin AST ALT Alkaline Phosphatase Troponin I < 0.015 Total Protein Albumin Globulin Albumin/Globulin Ratio Procalcitonin Pending - Other Studies Radiology: [] reviewed Other Studies: [] Route of nutrition/ use of supplements: [] Nutritional Intake: [] IV Site: [] Wang Catheter: [] - Physical Exam General: Alert, Oriented x3, Cooperative, - - diaphoretic HEENT: Atraumatic, PERRLA, EOMI Neck: Supple, No Nodes Lungs: Diminished Cardiovascular: Regular rate, Regular Rhythm Abdomen: Soft, Non Tender, Non-Distended Extremities: No edema Skin: No rashes IV Site: Peripheral, without redness Musculoskeletal: No Tenderness to Palpation of Joints or Extremities Neurological: Cranial nerves II-XII grossly intact - Assessment/Plan Antibiotics: [] Assessment/Plan: [] Active and Suspected Problems Hypoxemia (Acute) Pneumonia due to COVID-19 virus (Acute) Sepsis due to pneumonia (Acute) covid with hypoxia - reports 12 days of symptoms. Cont dex. Likely minimal benefit from plasma or remdesivir this far out. Will check d-dimer with AM labs. Will follow, thank you
[2020-05-14 18:50] LABS: Procalcitonin 0.05 ng/mL (0.00-0.09)
[2020-05-14] MEDS: Famotidine 20 MG Tablet PO (21:30)
[2020-05-14] MEDS: Ipratropium/Albuterol Sulfate 3 ML AMPUL.NEB INHALATION (23:35)
[2020-05-15] VITALS (16 sets, daily range): BP systolic 106–149; BP diastolic 68–90; PULSE 79–104; RESP 17–22; TEMP 36.6–38.3; O2SAT 91–95
[2020-05-15] MEDS: 0.9% Normal Saline 1,000 ML 200 ML IV (01:23)
[2020-05-15] MEDS: Furosemide 40 MG/4 ML Vial IV (05:09)
[2020-05-15] MEDS: 0.9% Saline Lock 10 ML Syringe IV (05:10)
[2020-05-15 06:32] LABS: Absolute Lymphocyte Count 23.02 X10^3/uL (0.83-4.51); Absolute Neutrophil Count 6.8 X10^3/uL (2.0-7.7); Basophil# 0.03 X10^3/uL; Basophil% 0.1 % (0-1); Hematocrit 38.5 % (40-54); Hemoglobin 12.2 g/dL (13.0-16.5); Lymphocyte # 23.02 X10^3/ul (4.0); Lymphocyte % 76.8 % (19-41); Mean Corp Hgb Conc 31.7 g/dL (32-36); Mean Corpuscular Hgb 28.1 pg (27.0-32.0); Mean Corpuscular Volume 88.7 fL (80-94); Mean Platelet Vol. 10.5 fl (6.2-12.0); Monocyte# 0.04 X10^3/uL; Monocyte% 0.1 % (0-10); NRBC Flagged by Analyzer 0 % (0-5); Neutrophil % 22.7 % (47-70); POSITIVE DIFFERENTIAL YES; POSITIVE MORPHOLOGY YES; Platelet Count 219 K/mm3 (150-450); RBC Distribution Width CV 14.7 % (11.6-14.6); RBC Distribution Width SD 48.3 fl (35.1-43.9); Red Blood Count 4.34 M/mm3 (4.6-6.2)
[2020-05-15 06:37] LABS: Differential Indicated SCAN CRITERIA MET
[2020-05-15 06:39] LABS: International Normalized Ratio 3.3; Prothrombin Time (Protime)PT. 33.2 SECONDS (11.7-14.9)
[2020-05-15 06:45] LABS: D-Dimer Quantitative (DVT/PE) 0.85 FEU/ug/m (0.27-0.49)
[2020-05-15 06:51] LABS: Anion Gap 9 (5-15); BUN 14 mg/dL (7-18); BUN/Creat Ratio 19.8 RATIO (10-20); Calcium,Total 8.7 mg/dL (8.5-10.1); Chloride 105 mmol/L (98-107); Creatinine, Serum 0.71 mg/dL (0.70-1.30); EST Glomerular Filtration Rate 120 mL/min (>60); Est Glom Filt Rate - Afr Amer 145 mL/min (>60); Estimated Creatinine Clearance 98.27 ml/min; Glucose 144 mg/dL (74-106); Magnesium 2.1 mg/dL (1.6-2.6); Potassium 3.8 mmol/L (3.5-5.1); Sodium Level 137 mmol/L (136-145)
[2020-05-15 07:00] LABS: Differential Comment SCANNED; Platelet Estimate ADEQUATE (ADEQ)
[2020-05-15] MEDS: Ipratropium/Albuterol Sulfate 3 ML AMPUL.NEB INHALATION (07:33)
--- NOTE | 2020-05-15 07:51 | PCM.PN.HOSP ---
Patient Problems: Active and Suspected Problems Hypoxemia (Acute) Pneumonia due to COVID-19 virus (Acute) Sepsis due to pneumonia (Acute) Subjective: Patient seen and examined. Still remains short of breath and is now on 6 L of oxygen. Review of systems otherwise negative. He has remained hemodynamically stable otherwise. WBC is up to 30 today but is mainly lymphocytic. Vitals/I&O's: Vital Signs Temp Pulse Resp BP Pulse Ox 97.8 F 87 18 119/68 93 05/15/20 05:01 05/15/20 05:01 05/15/20 05:01 05/15/20 05:01 05/15/20 05:01 Oxygen Flow Rate (L/min) 6 Oxygen Delivery Method Nasal Cannula Weight: 200 lb 8 oz Body Mass Index (BMI) 31.4 Intake and Output for Last 24 Hours 05/13/20 05/14/20 05/15/20 23:59 23:59 23:59 Intake Total 3141.67 / 3141.67 1193.33 / 1193.33 Output Total 1150 / 1150 Balance 3141.67 / 3141.67 43.33 / 43.33 General: Alert, Oriented x3, Cooperative HEENT: Atraumatic, PERRLA, EOMI, Normocephalic Neck: Supple, No JVD, Negative Carotid Bruits Lungs: - - Diminished breath sounds bibasally. No wheezes or crackles. On 6L of oxygen by nasal canula Cardiovascular: Regular rate, Regular Rhythm, Normal S1, Normal S2, No murmurs Abdomen: Bowel Sounds Present, Soft, Non Tender Extremities: No edema, Capillary Refill Less than 3 Seconds Skin: No rashes, No breakdown Musculoskeletal: No Tenderness to Palpation of Joints or Extremities Lymphatic: No Cervical, Supraclavicular, or Inguinal Adenopathy Neurological: Cranial nerves II-XII grossly intact, Neuro grossly intact, Motor Exam 5/5 strength throughout Psych/Mental Status: Normal Affect, Appropriate, Alert and oriented to time, place, person, mood and affect Microbiology Past 72 Hours 05/14/20 17:53 Interface Orders Legionella Antigen - Final 05/14/20 17:53 Interface Orders Streptococcus pneumoniae Antigen (M - Final Laboratory Results 05/14/20 10:16: WBC 25.0 H, RBC 4.49 L, Hgb 12.8 L, Hct 39.5 L, MCV 88.0, MCH 28.5, MCHC 32.4, RDW Std Deviation 47.6 H, RDW Coeff of Diogo 14.6, Plt Count 212, MPV 10.6, Immature Gran % (Auto) 0.200, Neut % (Auto) 17.5 L, Lymph % (Auto) 81.9 H, [place] % (Auto) 0.3, Eos % (Auto) 0.0, Baso % (Auto) 0.1, Absolute Neuts (auto) 4.4, Absolute Lymphs (auto) 20.46 H, Nucleated RBC % 0, Differential Comment SCANNED 05/14/20 10:16: Sodium 131 L, Potassium 4.1, Chloride 100, Carbon Dioxide 25.0, Anion Gap 6, BUN 12, Creatinine 0.85, Estim Creat Clear Calc 82.08, Est GFR (MDRD) Af Amer 116, Est GFR (MDRD) Non-Af 96, BUN/Creatinine Ratio 14.1, Glucose 108 H, Calcium 8.8, Total Bilirubin 0.40, AST 21, ALT 28, Alkaline Phosphatase 92, Troponin I < 0.015, Total Protein 7.4, Albumin 2.7 L, Globulin 4.7 H, Albumin/Globulin Ratio 0.6 L 05/14/20 10:16: Lactic Acid 0.8 05/14/20 10:16: PT 27.4 H, INR 2.6 05/14/20 14:58: Procalcitonin 0.05 05/14/20 15:21: Troponin I < 0.015 05/14/20 18:05: Troponin I < 0.015 05/15/20 06:00: WBC 30.0 H*, RBC 4.34 L, Hgb 12.2 L, Hct 38.5 L, MCV 88.7, MCH 28.1, MCHC 31.7 L, RDW Std Deviation 48.3 H, RDW Coeff of Diogo 14.7 H, Plt Count 219, MPV 10.5, Immature Gran % (Auto) 0.300, Neut % (Auto) 22.7 L, Lymph % (Auto) 76.8 H, [place] % (Auto) 0.1, Eos % (Auto) 0.0, Baso % (Auto) 0.1, Absolute Neuts (auto) 6.8, Absolute Lymphs (auto) 23.02 H, Nucleated RBC % 0, Differential Comment SCANNED, Diff Path Review November foll, Platelet Estimate ADEQUATE 05/15/20 06:00: Sodium 137, Potassium 3.8, Chloride 105, Carbon Dioxide 23.0, Anion Gap 9, BUN 14, Creatinine 0.71, Estim Creat Clear Calc 98.27, Est GFR (MDRD) Af Amer 145, Est GFR (MDRD) Non-Af 120, BUN/Creatinine Ratio 19.8, Glucose 144 H, Calcium 8.7, Magnesium 2.1 05/15/20 06:00: PT 33.2 H, INR 3.3, D-Dimer Quant (PE/DVT) 0.85 H* Current Medications Acetaminophen (Acetaminophen 325 Mg Tablet) 650 mg PO Q6H PRN PRN PRN Reason: Pain Score 1-10/Temp > 100.7 F Albuterol/Ipratropium (Ipratropium/Albuterol Sulfate 3 Ml Ampul.Neb) 3 ml INHALATION Q6H.RT [facility] Last Admin: 05/15/20 07:33 Dose: 3 ml Documented by: Dexamethasone (Dexamethasone 4 Mg Tablet) 6 mg PO DAILY@0800 [facility] Stop: 05/23/20 08:01 Famotidine (Famotidine 20 Mg Tablet) 20 mg PO BID [facility] Last Admin: 05/14/20 21:30 Dose: 20 mg Documented by: Sodium Chloride () 250 mls @ 15 mls/hr IV .[id number] PRN PRN Reason: Saline Flush Sodium Chloride () 250 mls @ 15 mls/hr IV .[id number] PRN PRN Reason: Additional IVPB Infusion Metoprolol Tartrate (Metoprolol Tartrate 50 Mg Tablet) 50 mg PO BID [facility] Last Admin: 05/14/20 21:30 Dose: Not Given Documented by: Nitroglycerin (Nitroglycerin (Inpatient Use) 0.4 Mg Tab.Subl) 0.4 mg SUBLINGUAL Q5M PRN PRN Reason: CARDIAC/CHEST PAIN Ondansetron HCl (Ondansetron 4 Mg/2 Ml Vial) 4 mg IV Q8H PRN PRN PRN Reason: NAUSEA/VOMITING Sodium Chloride (0.9% Saline Lock 10 Ml Syringe) 10 - 40 ml IV UD PRN PRN Reason: SALINE FLUSH Last Admin: 05/15/20 05:10 Dose: 20 ml Documented by: Warfarin Sodium (Warfarin 7.5 Mg Tablet) 7.5 mg PO DAILY@2200 JOSHUA STROKE Vital Signs/Narrative: Vital Signs Temp Pulse Resp BP Pulse Ox 05/15/20 05:01 97.8 F 87 18 119/68 93 Medical Necessity - Tobacco Use Smoking Status: Never smoker Assessment/Plan All Active Problems Hypoxemia (Acute) Pneumonia due to COVID-19 virus (Acute) Sepsis due to pneumonia (Acute) Chest pain, midsternal (Acute) 65-year-old admitted with a complaint of shortness of breath. #Acute COVID-19 pneumonia now on 6L of oxygen Admits to [facility] to Cov[facility] cohort floor Titrate oxygen to maintain saturation above 90%. On IV decadrone Breathing treatments with bronchodilators. ID on board: Per ID, patient has had 12 days of symptoms as above likely benefit from plasma remdesivir this far out. D-dimer was elevated to hold off on doing CTA as patient is already anticoagulated on Coumadin and INR is therapeutic. #. Acute hypoxic respiratory insufficiency due to COVID 19 infection management as above #History of left lower extremity DVT: On Coumadin. INR therapeutic. #TOÑO: stable #History of CLL. With oncology. White cell count is up to 30 today but this predominantly lymphocytic which is likely due to CLL. Will monitor. DVT prophylaxis: On Coumadin INR is therapeutic CODE STATUS: Full code Inpatient E&M: 89900 Subs Hosp L3
[2020-05-15] MEDS: dexAMETHasone 4 MG Tablet 6 MG PO (09:40)
[2020-05-15] MEDS: Famotidine 20 MG Tablet PO ×2 (09:41→20:15)
--- NOTE | 2020-05-15 12:03 | PCM.PN.ID ---
Patient Problems: Active and Suspected Problems Hypoxemia (Acute) Pneumonia due to COVID-19 virus (Acute) Sepsis due to pneumonia (Acute) Subjective: Feeling much better, no fever, breathing better - Physical Exam Vitals/I&O's: Vital Signs Temp Pulse Resp BP Pulse Ox 98.6 F 104 H 18 106/69 93 05/15/20 09:46 05/15/20 09:48 05/15/20 09:46 05/15/20 09:46 05/15/20 09:46 Oxygen Flow Rate (L/min) 6 Oxygen Delivery Method Nasal Cannula Weight: 90.945 kg Body Mass Index (BMI) 31.4 Intake and Output for Last 24 Hours 05/13/20 05/14/20 05/15/20 23:59 23:59 23:59 Intake Total 3141.67 / 3141.67 1193.33 / 1193.33 Output Total 1150 / 1150 Balance 3141.67 / 3141.67 43.33 / 43.33 General: Alert, Cooperative, No apparent distress Lungs: Clear to auscultation, Diminished Cardiovascular: Regular rate, Regular Rhythm Abdomen: Soft, Non Tender, Non-Distended Skin: No rashes Microbiology Past 72 Hours 05/14/20 17:53 Interface Orders Legionella Antigen - Final 05/14/20 17:53 Interface Orders Streptococcus pneumoniae Antigen (M - Final Laboratory Results 05/14/20 10:16: PT 27.4 H, INR 2.6 05/14/20 14:58: Procalcitonin 0.05 05/14/20 15:21: Troponin I < 0.015 05/14/20 18:05: Troponin I < 0.015 05/15/20 06:00: WBC 30.0 H*, RBC 4.34 L, Hgb 12.2 L, Hct 38.5 L, MCV 88.7, MCH 28.1, MCHC 31.7 L, RDW Std Deviation 48.3 H, RDW Coeff of Diogo 14.7 H, Plt Count 219, MPV 10.5, Immature Gran % (Auto) 0.300, Neut % (Auto) 22.7 L, Lymph % (Auto) 76.8 H, [place] % (Auto) 0.1, Eos % (Auto) 0.0, Baso % (Auto) 0.1, Absolute Neuts (auto) 6.8, Absolute Lymphs (auto) 23.02 H, Nucleated RBC % 0, Differential Comment SCANNED, Diff Path Review November, Platelet Estimate ADEQUATE 05/15/20 06:00: Sodium 137, Potassium 3.8, Chloride 105, Carbon Dioxide 23.0, Anion Gap 9, BUN 14, Creatinine 0.71, Estim Creat Clear Calc 98.27, Est GFR (MDRD) Af Amer 145, Est GFR (MDRD) Non-Af 120, BUN/Creatinine Ratio 19.8, Glucose 144 H, Calcium 8.7, Magnesium 2.1 05/15/20 06:00: PT 33.2 H, INR 3.3, D-Dimer Quant (PE/DVT) 0.85 H* 05/15/20 06:00: B-Natriuretic Peptide Pending Current Medications Acetaminophen (Acetaminophen 325 Mg Tablet) 650 mg PO Q6H PRN PRN PRN Reason: Pain Score 1-10/Temp > 100.7 F Albuterol/Ipratropium (Ipratropium/Albuterol Sulfate 3 Ml Ampul.Neb) 3 ml INHALATION Q6H.RT [facility] Last Admin: 05/15/20 07:33 Dose: 3 ml Documented by: Dexamethasone (Dexamethasone 4 Mg Tablet) 6 mg PO DAILY@0800 [facility] Stop: 05/23/20 08:01 Last Admin: 05/15/20 09:40 Dose: 6 mg Documented by: Famotidine (Famotidine 20 Mg Tablet) 20 mg PO BID [facility] Last Admin: 05/15/20 09:41 Dose: 20 mg Documented by: Sodium Chloride () 250 mls @ 15 mls/hr IV .[id number] PRN PRN Reason: Saline Flush Sodium Chloride () 250 mls @ 15 mls/hr IV .[id number] PRN PRN Reason: Additional IVPB Infusion Metoprolol Tartrate (Metoprolol Tartrate 50 Mg Tablet) 50 mg PO BID [facility] Last Admin: 05/15/20 09:42 Dose: Not Given Documented by: Nitroglycerin (Nitroglycerin (Inpatient Use) 0.4 Mg Tab.Subl) 0.4 mg SUBLINGUAL Q5M PRN PRN Reason: CARDIAC/CHEST PAIN Ondansetron HCl (Ondansetron 4 Mg/2 Ml Vial) 4 mg IV Q8H PRN PRN PRN Reason: NAUSEA/VOMITING Sodium Chloride (0.9% Saline Lock 10 Ml Syringe) 10 - 40 ml IV UD PRN PRN Reason: SALINE FLUSH Last Admin: 05/15/20 05:10 Dose: 20 ml Documented by: Warfarin Sodium (Warfarin 7.5 Mg Tablet) 7.5 mg PO DAILY@2200 [facility] Medical Necessity - Tobacco Use Smoking Status: Never smoker Route of nutrition/ use of supplements: [] Nutritional Intake: [] IV Site: [] Wang Catheter: [] - Assessment/Plan Antibiotics: [] Assessment/Plan: [] Active and Suspected Problems Hypoxemia (Acute) Pneumonia due to COVID-19 virus (Acute) Sepsis due to pneumonia (Acute) covid with hypoxia - reports 12 days of symptoms. Cont dex. Likely minimal benefit from plasma or remdesivir this far out. Ddimer 0.8, on 6L, feeling much better today. Will follow
[2020-05-15 13:06] LABS: Pathologist Review Reviewed
[2020-05-15 13:38] LABS: BNP,B-Type NATRIURETIC PEPTIDE 100.7 pg/mL (0-100)
--- NOTE | 2020-05-15 13:55 | CASEMGMT ---
ADEN HERNANDEZ called patient in room for initial transition planning/care coordination assessment. ADEN HERNANDEZ introduced self and role at [facility]. Patient is alert and oriented. Patient willing to participate in assessment and is able to answer all questions appropriately. Care providers, pharmacy, and demographics verified. Patient wishes to discharge home, denies need for home health at this time. Patient states he has no further needs or concerns at this time. CM to follow for discharge planning needs that may arise. PCP: Delfino Specialists: Shannon, oncology; Katie, stitch bonding machine drawer in Preferred Pharmacy: [facility] in [place] Insurance: [employer] Prescription Benefit: [employer] Living Will/HPOA: Patient states he has a living will LNOK: Living Arrangements: Patient lives with and daughter in a 2 story home with bed and bath on first floor. Patient states he is independent at home. Patient states and daughter are isolating at home. Patient states that his sister can get prescriptions and supplies to the house. Transportation: driving service DME/HHC: Patient denies DME or previous HHC. Will monitor for need for home oxygen. Patient prefers [facility] if they can supply oxygen if needed. Disposition Plan: Patient to discharge home with family support and follow-up plans in place. Melody MONTEJO, RN, CM
[2020-05-15] MEDS: Acetaminophen 325 MG Tablet 650 MG PO (20:20)
[2020-05-16] VITALS (19 sets, daily range): BP systolic 111–157; BP diastolic 52–88; PULSE 76–102; RESP 16–28; TEMP 36.7–39.3; O2SAT 91–94
[2020-05-16] MEDS: Acetaminophen 325 MG Tablet 650 MG PO ×3 (06:02→21:19)
[2020-05-16 07:18] LABS: Absolute Lymphocyte Count 24.24 X10^3/uL (0.83-4.51); Absolute Neutrophil Count 8.2 X10^3/uL (2.0-7.7); Basophil# 0.03 X10^3/uL; Basophil% 0.1 % (0-1); Hematocrit 36.6 % (40-54); Hemoglobin 11.6 g/dL (13.0-16.5); Lymphocyte # 24.24 X10^3/ul (4.0); Lymphocyte % 74.3 % (19-41); Mean Corp Hgb Conc 31.7 g/dL (32-36); Mean Corpuscular Volume 88.2 fL (80-94); Mean Platelet Vol. 10.6 fl (6.2-12.0); Monocyte# 0.06 X10^3/uL; Monocyte% 0.2 % (0-10); NRBC Flagged by Analyzer 0 % (0-5); Neutrophil # 8.17 X10^3/uL (2.7-7.7); Neutrophil % 25.1 % (47-70); POSITIVE COUNT YES; POSITIVE DIFFERENTIAL YES; POSITIVE MORPHOLOGY YES; Platelet Count 259 K/mm3 (150-450); RBC Distribution Width CV 14.7 % (11.6-14.6); RBC Distribution Width SD 47.8 fl (35.1-43.9); Red Blood Count 4.15 M/mm3 (4.6-6.2)
[2020-05-16 07:39] LABS: Differential Indicated SCAN CRITERIA MET; White Blood Count 32.6 K/mm3 (4.4-11.0)
[2020-05-16] MEDS: Ipratropium/Albuterol Sulfate 3 ML AMPUL.NEB INHALATION (07:42)
--- NOTE | 2020-05-16 07:56 | PN_ITS ---
Patient Problems: Active and Suspected Problems Hypoxemia (Acute) Pneumonia due to COVID-19 virus (Acute) Sepsis due to pneumonia (Acute) Subjective: Patient seen and examined. He feels much better but remains on 6 L of oxygen. Review of systems otherwise negative. ID did not think he would benefit from plasma or remdesivir as he was too far out in the disease course. Vitals/I&O's: Vital Signs Temp Pulse Resp BP Pulse Ox 101.6 F H 90 20 H 111/67 94 05/16/20 06:55 05/16/20 07:43 05/16/20 07:43 05/16/20 06:55 05/16/20 06:55 Oxygen Flow Rate (L/min) 6 Oxygen Delivery Method Nasal Cannula Weight: 200 lb 7.99 oz Body Mass Index (BMI) 31.4 Intake and Output for Last 24 Hours 05/14/20 05/15/20 05/16/20 23:59 23:59 23:59 Intake Total 3141.67 / 3141.67 33 / 150 / 150 Output Total 1150 / 1150 600 / 600 Balance 3141.67 / 3141.67 843.33 / 843.33 -450 / -450 General: Alert, Oriented x3, Cooperative HEENT: Atraumatic, PERRLA, EOMI, Normocephalic Neck: Supple, No JVD, Negative Carotid Bruits Lungs: - - Diminished breath sounds bibasally. No wheezes or crackles. On 6L of oxygen by nasal canula Cardiovascular: Regular rate, Regular Rhythm, Normal S1, Normal S2, No murmurs Abdomen: Bowel Sounds Present, Soft, Non Tender Extremities: No edema, Capillary Refill Less than 3 Seconds Skin: No rashes, No breakdown Musculoskeletal: No Tenderness to Palpation of Joints or Extremities Lymphatic: No Cervical, Supraclavicular, or Inguinal Adenopathy Neurological: Cranial nerves II-XII grossly intact, Neuro grossly intact, Motor Exam 5/5 strength throughout Psych/Mental Status: Normal Affect, Appropriate, Alert and oriented to time, place, person, mood and affect Microbiology Past 72 Hours 05/14/20 17:53 Interface Orders Legionella Antigen - Final 05/14/20 17:53 Interface Orders Streptococcus pneumoniae Antigen (M - Final Laboratory Results 05/15/20 06:00: Diff Path Review Reviewed 05/15/20 06:00: B-Natriuretic Peptide 100.7 H 05/16/20 06:20: WBC 32.6 H*, RBC 4.15 L, Hgb 11.6 L, Hct 36.6 L, MCV 88.2, MCH 28.0, MCHC 31.7 L, RDW Std Deviation 47.8 H, RDW Coeff of Diogo 14.7 H, Plt Count 259, MPV 10.6, Immature Gran % (Auto) 0.300, Neut % (Auto) 25.1 L, Lymph % (Auto) 74.3 H, [place] % (Auto) 0.2, Eos % (Auto) 0.0, Baso % (Auto) 0.1, Absolute Neuts (auto) 8.2 H, Absolute Lymphs (auto) 24.24 H, Nucleated RBC % 0 05/16/20 06:20: Sodium Pending, Potassium Pending, Chloride Pending, Carbon Dioxide Pending, Anion Gap Pending, BUN Pending, Creatinine Pending, Est GFR (MDRD) Af Amer Pending, Est GFR (MDRD) Non-Af Pending, BUN/Creatinine Ratio Pending, Glucose Pending, Calcium Pending Current Medications Acetaminophen (Acetaminophen 325 Mg Tablet) 650 mg PO Q6H PRN PRN PRN Reason: Pain Score 1-10/Temp > 100.7 F Last Admin: 05/16/20 06:02 Dose: 650 mg Documented by: Albuterol/Ipratropium (Ipratropium/Albuterol Sulfate 3 Ml Ampul.Neb) 3 ml INHALATION Q6H.RT [facility] Last Admin: 05/16/20 07:42 Dose: 3 ml Documented by: Dexamethasone (Dexamethasone 4 Mg Tablet) 6 mg PO DAILY@0800 [facility] Stop: 05/23/20 08:01 Last Admin: 05/15/20 09:40 Dose: 6 mg Documented by: Famotidine (Famotidine 20 Mg Tablet) 20 mg PO BID [facility] Last Admin: 05/15/20 20:15 Dose: 20 mg Documented by: Sodium Chloride () 250 mls @ 15 mls/hr IV .[id number] PRN PRN Reason: Saline Flush Sodium Chloride () 250 mls @ 15 mls/hr IV .[id number] PRN PRN Reason: Additional IVPB Infusion Metoprolol Tartrate (Metoprolol Tartrate 50 Mg Tablet) 50 mg PO BID [facility] Last Admin: 05/15/20 20:18 Dose: Not Given Documented by: Nitroglycerin (Nitroglycerin (Inpatient Use) 0.4 Mg Tab.Subl) 0.4 mg SUBLINGUAL Q5M PRN PRN Reason: CARDIAC/CHEST PAIN Ondansetron HCl (Ondansetron 4 Mg/2 Ml Vial) 4 mg IV Q8H PRN PRN PRN Reason: NAUSEA/VOMITING Sodium Chloride (0.9% Saline Lock 10 Ml Syringe) 10 - 40 ml IV UD PRN PRN Reason: SALINE FLUSH Last Admin: 05/15/20 05:10 Dose: 20 ml Documented by: Warfarin Sodium (Warfarin 7.5 Mg Tablet) 7.5 mg PO DAILY@2200 [facility] Last Admin: 05/15/20 20:19 Dose: Not Given Documented by: STROKE Vital Signs/Narrative: Vital Signs Temp Pulse Resp BP Pulse Ox 05/16/20 07:43 90 20 H 05/16/20 06:55 101.6 F H 102 H 18 111/67 94 05/16/20 06:00 102.8 F H 88 20 H 144/88 H 93 05/16/20 04:06 99.1 F 97 20 H 126/52 H 93 Medical Necessity - Tobacco Use Smoking Status: Never smoker Assessment/Plan All Active Problems Hypoxemia (Acute) Pneumonia due to COVID-19 virus (Acute) Sepsis due to pneumonia (Acute) Chest pain, midsternal (Acute) 65-year-old admitted with a complaint of shortness of breath. #Acute COVID-19 pneumonia * still on 6L of oxygen * Titrate oxygen to maintain saturation above 90%. On IV decadrone * Breathing treatments with bronchodilators. * ID on board: Per ID, patient has had 12 days of symptoms as above likely benefit from plasma remdesivir this far out. * * #. Acute hypoxic respiratory failure due to COVID 19 infection * management as above * #History of left lower extremity DVT: On Coumadin. INR therapeutic. #TOÑO: stable #History of CLL. * follows up with oncology at [facility] * White cell count is up to 32.6 today but this predominantly lymphocytic which is likely due to CLL. * Will monitor. tp follow up with oncology on outpatient basis. * DVT prophylaxis: On Coumadin INR is therapeutic CODE STATUS: Full code * Inpatient E&M: 48013 Subs Hosp L2
[2020-05-16 08:08] LABS: Anion Gap 9 (5-15); BUN 21 mg/dL (7-18); BUN/Creat Ratio 25.4 RATIO (10-20); Calcium,Total 8.5 mg/dL (8.5-10.1); Chloride 102 mmol/L (98-107); Creatinine, Serum 0.83 mg/dL (0.70-1.30); EST Glomerular Filtration Rate 99 mL/min (>60); Est Glom Filt Rate - Afr Amer 120 mL/min (>60); Estimated Creatinine Clearance 84.06 ml/min; Glucose 108 mg/dL (74-106); Potassium 4.1 mmol/L (3.5-5.1); Sodium Level 135 mmol/L (136-145)
[2020-05-16 08:20] LABS: Platelet Estimate ADEQUATE (ADEQ); Red Cell Morphology NORM C+C NORMAL (NORM C&C)
[2020-05-16] MEDS: Famotidine 20 MG Tablet PO ×2 (09:10→21:05)
[2020-05-16] MEDS: Metoprolol Tartrate 50 MG Tablet PO ×2 (09:10→21:05)
[2020-05-16] MEDS: dexAMETHasone 4 MG Tablet 6 MG PO (09:10)
[2020-05-16 09:13] LABS: Prothrombin Time (Protime)PT. 39.2 SECONDS (11.7-14.9)
[2020-05-16 09:15] LABS: International Normalized Ratio 4.1
--- NOTE | 2020-05-16 10:18 | CASEMGMT ---
Call to pt's room and he states he would like [employer] for [employer], if home oxygen need at discharge. Pt states no need for any further therapy at this time. CM to follow. Green sheet on chart for home oxygen, if qualifies. Heath SAMANIEGO CM
--- NOTE | 2020-05-16 16:21 | PN.ID_ITS ---
Patient Problems: Active and Suspected Problems Hypoxemia (Acute) Pneumonia due to COVID-19 virus (Acute) Sepsis due to pneumonia (Acute) Subjective: Sleeping this afternoon, no fever since this AM - Physical Exam Vitals/I&O's: Vital Signs Temp Pulse Resp BP Pulse Ox 98.1 F 89 20 H 115/75 92 05/16/20 15:00 05/16/20 15:00 05/16/20 15:00 05/16/20 15:00 05/16/20 15:00 Oxygen Flow Rate (L/min) 6 Oxygen Delivery Method Nasal Cannula Weight: 90.945 kg Body Mass Index (BMI) 31.4 Intake and Output for Last 24 Hours 05/14/20 05/15/20 05/16/20 23:59 23:59 23:59 Intake Total 3141.67 / 3141.67 33 / 390 / 390 Output Total 1150 / 1150 1000 / 1000 Balance 3141.67 / 3141.67 843.33 / 843.33 -610 / -610 General: No apparent distress Lungs: Diminished Cardiovascular: Regular rate, Regular Rhythm Abdomen: Soft, Non Tender, Non-Distended Skin: No rashes Microbiology Past 72 Hours 05/14/20 10:20 Blood Culture (Wb) - Left Hand Blood Culture - Preliminary No growth in 48 hours. 05/14/20 10:16 Blood Culture (Wb) - Anticubital Left Blood Culture - Preliminary No growth in 48 hours. 05/14/20 17:53 Interface Orders Legionella Antigen - Final 05/14/20 17:53 Interface Orders Streptococcus pneumoniae Antigen (M - Final Laboratory Results 05/16/20 06:20: WBC 32.6 H*, RBC 4.15 L, Hgb 11.6 L, Hct 36.6 L, MCV 88.2, MCH 28.0, MCHC 31.7 L, RDW Std Deviation 47.8 H, RDW Coeff of Diogo 14.7 H, Plt Count 259, MPV 10.6, Immature Gran % (Auto) 0.300, Neut % (Auto) 25.1 L, Lymph % (Auto) 74.3 H, [place] % (Auto) 0.2, Eos % (Auto) 0.0, Baso % (Auto) 0.1, Absolute Neuts (auto) 8.2 H, Absolute Lymphs (auto) 24.24 H, Nucleated RBC % 0, Differential Comment , Diff Path Review May foll, Platelet Estimate ADEQUATE, RBC Morphology NORM C+C 05/16/20 06:20: Sodium 135 L, Potassium 4.1, Chloride 102, Carbon Dioxide 24.0, Anion Gap 9, BUN 21 H, Creatinine 0.83, Estim Creat Clear Calc 84.06, Est GFR (MDRD) Af Amer 120, Est GFR (MDRD) Non-Af 99, BUN/Creatinine Ratio 25.4 H, Glucose 108 H, Calcium 8.5 05/16/20 08:45: PT 39.2 H, INR 4.1 H* Current Medications Acetaminophen (Acetaminophen 325 Mg Tablet) 650 mg PO Q6H PRN PRN PRN Reason: Pain Score 1-10/Temp > 100.7 F Last Admin: 05/16/20 11:34 Dose: 650 mg Documented by: Albuterol/Ipratropium (Ipratropium/Albuterol Sulfate 3 Ml Ampul.Neb) 3 ml INHALATION Q6H.RT [facility] Last Admin: 05/16/20 07:42 Dose: 3 ml Documented by: Dexamethasone (Dexamethasone 4 Mg Tablet) 6 mg PO DAILY@0800 [facility] Stop: 05/23/20 08:01 Last Admin: 05/16/20 09:10 Dose: 6 mg Documented by: Famotidine (Famotidine 20 Mg Tablet) 20 mg PO BID [facility] Last Admin: 05/16/20 09:10 Dose: 20 mg Documented by: Sodium Chloride () 250 mls @ 15 mls/hr IV .[id number] PRN PRN Reason: Saline Flush Sodium Chloride () 250 mls @ 15 mls/hr IV .[id number] PRN PRN Reason: Additional IVPB Infusion Metoprolol Tartrate (Metoprolol Tartrate 50 Mg Tablet) 50 mg PO BID [facility] Last Admin: 05/16/20 09:10 Dose: 50 mg Documented by: Nitroglycerin (Nitroglycerin (Inpatient Use) 0.4 Mg Tab.Subl) 0.4 mg SUBLINGUAL Q5M PRN PRN Reason: CARDIAC/CHEST PAIN Ondansetron HCl (Ondansetron 4 Mg/2 Ml Vial) 4 mg IV Q8H PRN PRN PRN Reason: NAUSEA/VOMITING Sodium Chloride (0.9% Saline Lock 10 Ml Syringe) 10 - 40 ml IV UD PRN PRN Reason: SALINE FLUSH Last Admin: 05/15/20 05:10 Dose: 20 ml Documented by: Warfarin Sodium (Warfarin 7.5 Mg Tablet) 7.5 mg PO DAILY@2200 [facility] Last Admin: 05/16/20 09:36 Dose: Not Given Documented by: Medical Necessity - Tobacco Use Smoking Status: Never smoker Route of nutrition/ use of supplements: [] Nutritional Intake: [] IV Site: [] Wang Catheter: [] - Assessment/Plan Antibiotics: [] Assessment/Plan: [] Active and Suspected Problems Hypoxemia (Acute) Pneumonia due to COVID-19 virus (Acute) Sepsis due to pneumonia (Acute) covid with hypoxia - reports 12 days of symptoms on presentation. Cont dex. Likely minimal benefit from plasma or remdesivir this far out. Ddimer 0.8, on 6L. Fever early this AM to 102.8. PCT was less than 0.05. Cxs neg so far. UAg neg. Will follow
[2020-05-17] VITALS (21 sets, daily range): BP systolic 116–152; BP diastolic 66–84; PULSE 70–111; RESP 18–24; TEMP 36.6–39.9; O2SAT 90–94
[2020-05-17] MEDS: Acetaminophen 325 MG Tablet 650 MG PO ×2 (05:33→21:58)
--- NOTE | 2020-05-17 08:00 | PN_ITS ---
Patient Problems: Active and Suspected Problems Hypoxemia (Acute) Pneumonia due to COVID-19 virus (Acute) Sepsis due to pneumonia (Acute) Subjective: Patient seen and examined. She continues to feel better and has no complaints. Review of systems otherwise negative. He has remained hemodynamically stable. Labs and vitals reviewed. Vitals/I&O's: Vital Signs Temp Pulse Resp BP Pulse Ox 103.9 F H 101 H 24 H 127/74 H 91 05/17/20 05:00 05/17/20 07:01 05/17/20 05:00 05/17/20 05:00 05/17/20 05:00 Oxygen Flow Rate (L/min) 5 Oxygen Delivery Method Nasal Cannula Weight: 200 lb 7.99 oz Body Mass Index (BMI) 31.4 Intake and Output for Last 24 Hours 05/15/20 05/16/20 05/17/20 23:59 23:59 23:59 Intake Total 1992.33 / 33 870 / 990 360 / 360 Output Total 1150 / 1150 1500 / 1500 500 / 500 Balance 843.33 / 843.33 -630 / -510 -140 / -140 General: Alert, Oriented x3, Cooperative HEENT: Atraumatic, PERRLA, EOMI, Normocephalic Neck: Supple, No JVD, Negative Carotid Bruits Lungs: - - Diminished breath sounds bibasally. No wheezes or crackles. On 5L of oxygen by nasal canula Cardiovascular: Regular rate, Regular Rhythm, Normal S1, Normal S2, No murmurs Abdomen: Bowel Sounds Present, Soft, Non Tender Extremities: No edema, Capillary Refill Less than 3 Seconds Skin: No rashes, No breakdown Musculoskeletal: No Tenderness to Palpation of Joints or Extremities Lymphatic: No Cervical, Supraclavicular, or Inguinal Adenopathy Neurological: Cranial nerves II-XII grossly intact, Neuro grossly intact, Motor Exam 5/5 strength throughout Psych/Mental Status: Normal Affect, Appropriate, Alert and oriented to time, place, person, mood and affect Microbiology Past 72 Hours 05/14/20 10:20 Blood Culture (Wb) - Left Hand Blood Culture - Preliminary No growth in 48 hours. 05/14/20 10:16 Blood Culture (Wb) - Anticubital Left Blood Culture - Preliminary No growth in 48 hours. 05/14/20 17:53 Interface Orders Legionella Antigen - Final 05/14/20 17:53 Interface Orders Streptococcus pneumoniae Antigen (M - Final Laboratory Results 05/16/20 06:20: Differential Comment , Diff Path Review May foll, Platelet Estimate ADEQUATE, RBC Morphology NORM C+C 05/16/20 06:20: Sodium 135 L, Potassium 4.1, Chloride 102, Carbon Dioxide 24.0, Anion Gap 9, BUN 21 H, Creatinine 0.83, Estim Creat Clear Calc 84.06, Est GFR (MDRD) Af Amer 120, Est GFR (MDRD) Non-Af 99, BUN/Creatinine Ratio 25.4 H, Glucose 108 H, Calcium 8.5 05/16/20 08:45: PT 39.2 H, INR 4.1 H* Current Medications Acetaminophen (Acetaminophen 325 Mg Tablet) 650 mg PO Q6H PRN PRN PRN Reason: Pain Score 1-10/Temp > 100.7 F Last Admin: 05/17/20 05:33 Dose: 650 mg Documented by: Albuterol/Ipratropium (Ipratropium/Albuterol Sulfate 3 Ml Ampul.Neb) 3 ml INHALATION Q6H.RT [facility] Last Admin: 05/16/20 07:42 Dose: 3 ml Documented by: Dexamethasone (Dexamethasone 4 Mg Tablet) 6 mg PO DAILY@0800 [facility] Stop: 05/23/20 08:01 Last Admin: 05/16/20 09:10 Dose: 6 mg Documented by: Famotidine (Famotidine 20 Mg Tablet) 20 mg PO BID [facility] Last Admin: 05/16/20 21:05 Dose: 20 mg Documented by: Sodium Chloride () 250 mls @ 15 mls/hr IV .[id number] PRN PRN Reason: Saline Flush Sodium Chloride () 250 mls @ 15 mls/hr IV .[id number] PRN PRN Reason: Additional IVPB Infusion Metoprolol Tartrate (Metoprolol Tartrate 50 Mg Tablet) 50 mg PO BID [facility] Last Admin: 05/16/20 21:05 Dose: 50 mg Documented by: Nitroglycerin (Nitroglycerin (Inpatient Use) 0.4 Mg Tab.Subl) 0.4 mg SUBLINGUAL Q5M PRN PRN Reason: CARDIAC/CHEST PAIN Ondansetron HCl (Ondansetron 4 Mg/2 Ml Vial) 4 mg IV Q8H PRN PRN PRN Reason: NAUSEA/VOMITING Sodium Chloride (0.9% Saline Lock 10 Ml Syringe) 10 - 40 ml IV UD PRN PRN Reason: SALINE FLUSH Last Admin: 05/15/20 05:10 Dose: 20 ml Documented by: Warfarin Sodium (Warfarin 7.5 Mg Tablet) 7.5 mg PO DAILY@2200 [facility] Last Admin: 05/16/20 09:36 Dose: Not Given Documented by: STROKE Vital Signs/Narrative: Vital Signs Temp Pulse Resp BP Pulse Ox 05/17/20 07:01 101 H 05/17/20 05:58 111 H 05/17/20 05:00 103.9 F H 105 H 24 H 127/74 H 91 Medical Necessity - Tobacco Use Smoking Status: Never smoker Assessment/Plan All Active Problems Hypoxemia (Acute) Pneumonia due to COVID-19 virus (Acute) Sepsis due to pneumonia (Acute) Chest pain, midsternal (Acute) 65-year-old admitted with a complaint of shortness of breath. #Acute COVID-19 pneumonia * now on 5L of oxygen by nasal canula * Titrate oxygen to maintain saturation above 90%. On IV decadrone * Breathing treatments with bronchodilators. * ID on board: dont think patient will have any benefit from remdesivir or convalescent plasma * * #. Acute hypoxic respiratory failure due to COVID 19 infection * management as above * #History of left lower extremity DVT: coumadin held yesterday on account of supratherapeutic INR. #TOÑO: stable #History of CLL. * follows up with oncology at [facility] * White cell count is pending today * Will monitor. to follow up with oncology on outpatient basis. * DVT prophylaxis: coumadin on hold o/a of supratherapeutic INR CODE STATUS: Full code * Inpatient E&M: 79291 Subs Hosp L2
[2020-05-17] MEDS: Ipratropium/Albuterol Sulfate 3 ML AMPUL.NEB INHALATION ×3 (08:22→19:46)
[2020-05-17 09:14] LABS: Absolute Lymphocyte Count 21.63 X10^3/uL (0.83-4.51); Absolute Neutrophil Count 9.2 X10^3/uL (2.0-7.7); Basophil# 0.05 X10^3/uL; Basophil% 0.2 % (0-1); Eosinophil# 0.01 X10^3/uL; Hematocrit 38.7 % (40-54); Hemoglobin 12.5 g/dL (13.0-16.5); Lymphocyte # 21.63 X10^3/ul (4.0); Lymphocyte % 69.3 % (19-41); Mean Corp Hgb Conc 32.3 g/dL (32-36); Mean Corpuscular Hgb 28.4 pg (27.0-32.0); Mean Platelet Vol. 10.4 fl (6.2-12.0); Monocyte% 0.3 % (0-10); NRBC Flagged by Analyzer 0 % (0-5); Neutrophil # 9.22 X10^3/uL (2.7-7.7); Neutrophil % 29.6 % (47-70); POSITIVE COUNT YES; POSITIVE DIFFERENTIAL YES; POSITIVE MORPHOLOGY YES; Platelet Count 263 K/mm3 (150-450); RBC Distribution Width CV 14.8 % (11.6-14.6); RBC Distribution Width SD 48.1 fl (35.1-43.9)
[2020-05-17] MEDS: dexAMETHasone 4 MG Tablet 6 MG PO (09:17)
[2020-05-17] MEDS: Metoprolol Tartrate 50 MG Tablet PO ×2 (09:18→21:59)
[2020-05-17] MEDS: Famotidine 20 MG Tablet PO ×2 (09:18→21:59)
[2020-05-17 09:27] LABS: Differential Indicated SCAN CRITERIA MET; White Blood Count 31.2 K/mm3 (4.4-11.0)
[2020-05-17 09:34] LABS: Anion Gap 5 (5-15); BUN 22 mg/dL (7-18); BUN/Creat Ratio 23.3 RATIO (10-20); Calcium,Total 8.8 mg/dL (8.5-10.1); Chloride 102 mmol/L (98-107); Creatinine, Serum 0.95 mg/dL (0.70-1.30); EST Glomerular Filtration Rate 85 mL/min (>60); Est Glom Filt Rate - Afr Amer 103 mL/min (>60); Estimated Creatinine Clearance 73.44 ml/min; Glucose 105 mg/dL (74-106); Potassium 4.3 mmol/L (3.5-5.1); Sodium Level 134 mmol/L (136-145)
[2020-05-17 10:08] LABS: Atypical Lymphocyte 3+ %; Platelet Estimate ADEQUATE (ADEQ); Red Cell Morphology NORM C+C NORMAL (NORM C&C)
[2020-05-17 10:36] LABS: Prothrombin Time (Protime)PT. 42.9 SECONDS (11.7-14.9)
[2020-05-17 10:45] LABS: International Normalized Ratio 4.5
[2020-05-18] VITALS (22 sets, daily range): BP systolic 112–138; BP diastolic 69–91; PULSE 58–98; RESP 16–22; TEMP 36.2–39.1; O2SAT 84–95
[2020-05-18] MEDS: Acetaminophen 325 MG Tablet 650 MG PO (03:58)
[2020-05-18 06:19] LABS: Absolute Lymphocyte Count 21.51 X10^3/uL (0.83-4.51); Absolute Neutrophil Count 8.9 X10^3/uL (2.0-7.7); Basophil# 0.04 X10^3/uL; Basophil% 0.1 % (0-1); Eosinophil# 0.01 X10^3/uL; Hematocrit 36.2 % (40-54); Hemoglobin 11.6 g/dL (13.0-16.5); Lymphocyte # 21.51 X10^3/ul (4.0); Lymphocyte % 69.8 % (19-41); Mean Corpuscular Hgb 28.1 pg (27.0-32.0); Mean Corpuscular Volume 87.7 fL (80-94); Mean Platelet Vol. 10.3 fl (6.2-12.0); Monocyte% 0.6 % (0-10); NRBC Flagged by Analyzer 0 % (0-5); Neutrophil # 8.87 X10^3/uL (2.7-7.7); Neutrophil % 28.9 % (47-70); POSITIVE COUNT YES; POSITIVE DIFFERENTIAL YES; POSITIVE MORPHOLOGY YES; Platelet Count 281 K/mm3 (150-450); RBC Distribution Width CV 14.8 % (11.6-14.6); RBC Distribution Width SD 47.7 fl (35.1-43.9); Red Blood Count 4.13 M/mm3 (4.6-6.2)
[2020-05-18 06:25] LABS: Differential Indicated SCAN CRITERIA MET; White Blood Count 30.8 K/mm3 (4.4-11.0)
[2020-05-18 06:28] LABS: Prothrombin Time (Protime)PT. 41.6 SECONDS (11.7-14.9)
[2020-05-18 06:31] LABS: International Normalized Ratio 4.4
[2020-05-18 06:45] LABS: Differential Comment SCANNED
[2020-05-18 06:47] LABS: Anion Gap 6 (5-15); BUN 20 mg/dL (7-18); BUN/Creat Ratio 27.5 RATIO (10-20); Calcium,Total 8.5 mg/dL (8.5-10.1); Chloride 102 mmol/L (98-107); Creatinine, Serum 0.73 mg/dL (0.70-1.30); EST Glomerular Filtration Rate 116 mL/min (>60); Est Glom Filt Rate - Afr Amer 140 mL/min (>60); Estimated Creatinine Clearance 95.58 ml/min; Glucose 105 mg/dL (74-106); Potassium 4.4 mmol/L (3.5-5.1); Sodium Level 134 mmol/L (136-145)
[2020-05-18] MEDS: Ipratropium/Albuterol Sulfate 3 ML AMPUL.NEB INHALATION ×2 (07:39→13:01)
--- NOTE | 2020-05-18 07:55 | PN_ITS ---
Patient Problems: Active and Suspected Problems Hypoxemia (Acute) Pneumonia due to COVID-19 virus (Acute) Sepsis due to pneumonia (Acute) Subjective: Patient seen and examined today. He is up to 8 L of oxygen today. He has no other complaints. Review of systems otherwise negative. He has also had a low- grade fever and is mildly tachypneic. White cell count is 30.8 today. Vitals/I&O's: Vital Signs Temp Pulse Resp BP Pulse Ox 99.5 F H 98 22 H 121/78 H 92 05/18/20 05:45 05/18/20 07:39 05/18/20 07:39 05/18/20 05:45 05/18/20 07:39 Oxygen Flow Rate (L/min) 8 Oxygen Delivery Method Nasal Cannula Weight: 200 lb 7.99 oz Body Mass Index (BMI) 31.4 Intake and Output for Last 24 Hours 05/16/20 05/17/20 05/18/20 23:59 23:59 23:59 Intake Total 870 / 990 1680 / 1680 480 / 480 Output Total 1500 / 1500 1850 / 1850 400 / 400 Balance -630 / -510 -170 / -170 80 / 80 General: Alert, Oriented x3, Cooperative HEENT: Atraumatic, PERRLA, EOMI, Normocephalic Neck: Supple, No JVD, Negative Carotid Bruits Lungs: - - Diminished breath sounds bibasally. No wheezes or crackles. On 8L of oxygen by nasal canula Cardiovascular: Regular rate, Regular Rhythm, Normal S1, Normal S2, No murmurs Abdomen: Bowel Sounds Present, Soft, Non Tender Extremities: No edema, Capillary Refill Less than 3 Seconds Skin: No rashes, No breakdown Musculoskeletal: No Tenderness to Palpation of Joints or Extremities Lymphatic: No Cervical, Supraclavicular, or Inguinal Adenopathy Neurological: Cranial nerves II-XII grossly intact, Neuro grossly intact, Motor Exam 5/5 strength throughout Psych/Mental Status: Normal Affect, Appropriate, Alert and oriented to time, place, person, mood and affect Microbiology Past 72 Hours 05/16/20 21:15 Sputum, Expectorated/Coughed Gram Stain - Final 05/14/20 10:20 Blood Culture (Wb) - Left Hand Blood Culture - Preliminary No growth in 48 hours. 05/14/20 10:16 Blood Culture (Wb) - Anticubital Left Blood Culture - Preliminary No growth in 48 hours. Laboratory Results 05/17/20 08:42: WBC 31.2 H*, RBC 4.40 L, Hgb 12.5 L, Hct 38.7 L, MCV 88.0, MCH 28.4, MCHC 32.3, RDW Std Deviation 48.1 H, RDW Coeff of Diogo 14.8 H, Plt Count 263, MPV 10.4, Immature Gran % (Auto) 0.600, Neut % (Auto) 29.6 L, Lymph % (Auto) 69.3 H, [place] % (Auto) 0.3, Eos % (Auto) 0.0, Baso % (Auto) 0.2, Absolute Neuts (auto) 9.2 H, Absolute Lymphs (auto) 21.63 H, Nucleated RBC % 0, Diff Path Review November [facility], Atypical Lymphocytes 3+, Platelet Estimate ADEQUATE, RBC Morphology NORM C+C 05/17/20 08:42: Sodium 134 L, Potassium 4.3, Chloride 102, Carbon Dioxide 27.0, Anion Gap 5, BUN 22 H, Creatinine 0.95, Estim Creat Clear Calc 73.44, Est GFR (MDRD) Af Amer 103, Est GFR (MDRD) Non-Af 85, BUN/Creatinine Ratio 23.3 H, Glucose 105, Calcium 8.8 05/17/20 10:00: PT 42.9 H, INR 4.5 H* 05/18/20 05:49: WBC 30.8 H*, RBC 4.13 L, Hgb 11.6 L, Hct 36.2 L, MCV 87.7, MCH 28.1, MCHC 32.0, RDW Std Deviation 47.7 H, RDW Coeff of Diogo 14.8 H, Plt Count 281, MPV 10.3, Immature Gran % (Auto) 0.600, Neut % (Auto) 28.9 L, Lymph % (Auto) 69.8 H, [place] % (Auto) 0.6, Eos % (Auto) 0.0, Baso % (Auto) 0.1, Absolute Neuts (auto) 8.9 H, Absolute Lymphs (auto) 21.51 H, Nucleated RBC % 0, Differential Comment SCANNED, Diff Path Review [facility] 05/18/20 05:49: Sodium 134 L, Potassium 4.4, Chloride 102, Carbon Dioxide 26.0, Anion Gap 6, BUN 20 H, Creatinine 0.73, Estim Creat Clear Calc 95.58, Est GFR (MDRD) Af Amer 140, Est GFR (MDRD) Non-Af 116, BUN/Creatinine Ratio 27.5 H, Glucose 105, Calcium 8.5 05/18/20 05:49: PT 41.6 H, INR 4.4 H* Current Medications Acetaminophen (Acetaminophen 325 Mg Tablet) 650 mg PO Q6H PRN PRN PRN Reason: Pain Score 1-10/Temp > 100.7 F Last Admin: 05/18/20 03:58 Dose: 650 mg Documented by: Albuterol/Ipratropium (Ipratropium/Albuterol Sulfate 3 Ml Ampul.Neb) 3 ml INHALATION Q6H.RT [facility] Last Admin: 05/18/20 07:39 Dose: 3 ml Documented by: Dexamethasone (Dexamethasone 4 Mg Tablet) 6 mg PO DAILY@0800 [facility] Stop: 05/23/20 08:01 Last Admin: 05/17/20 09:17 Dose: 6 mg Documented by: Famotidine (Famotidine 20 Mg Tablet) 20 mg PO BID [facility] Last Admin: 05/17/20 21:59 Dose: 20 mg Documented by: Sodium Chloride () 250 mls @ 15 mls/hr IV .[id number] PRN PRN Reason: Saline Flush Sodium Chloride () 250 mls @ 15 mls/hr IV .[id number] PRN PRN Reason: Additional IVPB Infusion Metoprolol Tartrate (Metoprolol Tartrate 50 Mg Tablet) 50 mg PO BID [facility] Last Admin: 05/17/20 21:59 Dose: 50 mg Documented by: Nitroglycerin (Nitroglycerin (Inpatient Use) 0.4 Mg Tab.Subl) 0.4 mg SUBLINGUAL Q5M PRN PRN Reason: CARDIAC/CHEST PAIN Ondansetron HCl (Ondansetron 4 Mg/2 Ml Vial) 4 mg IV Q8H PRN PRN PRN Reason: NAUSEA/VOMITING Sodium Chloride (0.9% Saline Lock 10 Ml Syringe) 10 - 40 ml IV UD PRN PRN Reason: SALINE FLUSH Last Admin: 05/15/20 05:10 Dose: 20 ml Documented by: Warfarin Sodium (Warfarin 7.5 Mg Tablet) 7.5 mg PO DAILY@2200 [facility] Last Admin: 05/16/20 09:36 Dose: Not Given Documented by: STROKE Vital Signs/Narrative: Vital Signs Temp Pulse Resp BP Pulse Ox 05/18/20 07:39 98 22 H 92 05/18/20 07:06 88 05/18/20 05:45 99.5 F H 94 20 H 121/78 H 94 05/18/20 04:45 100.5 F H 96 22 H 112/69 92 Medical Necessity - Tobacco Use Smoking Status: Never smoker Assessment/Plan All Active Problems Hypoxemia (Acute) Pneumonia due to COVID-19 virus (Acute) Sepsis due to pneumonia (Acute) Chest pain, midsternal (Acute) 65-year-old admitted with a complaint of shortness of breath. #Acute COVID-19 pneumonia * now on 8L of oxygen by nasal canula * Titrate oxygen to maintain saturation above 90%. On IV decadrone * Breathing treatments with bronchodilators. * ID on board: dont think patient will have any benefit from remdesivir or convalescent plasma * * #. Acute hypoxic respiratory failure due to COVID 19 infection * management as above * #History of left lower extremity DVT: coumadin on hold on account of supratherapeutic INR. INR today is 4.4. #TOÑO: stable #History of CLL. * follows up with oncology at [facility] * White cell count is pending today * Will monitor. to follow up with oncology on outpatient basis. * DVT prophylaxis: coumadin on hold o/a of supratherapeutic INR CODE STATUS: Full code * Inpatient E&M: 93513 Subs Hosp L2
[2020-05-18] MEDS: Famotidine 20 MG Tablet PO ×2 (08:24→22:25)
[2020-05-18] MEDS: dexAMETHasone 4 MG Tablet 6 MG PO (08:24)
[2020-05-18] MEDS: Metoprolol Tartrate 50 MG Tablet PO ×2 (08:24→22:25)
--- NOTE | 2020-05-18 08:26 | NURSING ---
Cool compress applied to forehead
[2020-05-19] VITALS (11 sets, daily range): BP systolic 120–144; BP diastolic 73–93; PULSE 67–94; RESP 18–22; TEMP 35.9–36.4; O2SAT 92–98
[2020-05-19 05:37] LABS: Absolute Lymphocyte Count 23.68 X10^3/uL (0.83-4.51); Absolute Neutrophil Count 7.8 X10^3/uL (2.0-7.7); Basophil# 0.04 X10^3/uL; Basophil% 0.1 % (0-1); Eosinophil# 0.01 X10^3/uL; Hematocrit 37.6 % (40-54); Lymphocyte # 23.68 X10^3/ul (4.0); Lymphocyte % 74.4 % (19-41); Mean Corp Hgb Conc 31.9 g/dL (32-36); Mean Corpuscular Hgb 27.9 pg (27.0-32.0); Mean Corpuscular Volume 87.4 fL (80-94); Mean Platelet Vol. 10.1 fl (6.2-12.0); Monocyte# 0.17 X10^3/uL; Monocyte% 0.5 % (0-10); NRBC Flagged by Analyzer 0 % (0-5); Neutrophil # 7.81 X10^3/uL (2.7-7.7); Neutrophil % 24.6 % (47-70); POSITIVE COUNT YES; POSITIVE DIFFERENTIAL YES; POSITIVE MORPHOLOGY YES; Platelet Count 306 K/mm3 (150-450); RBC Distribution Width CV 14.9 % (11.6-14.6); RBC Distribution Width SD 47.9 fl (35.1-43.9)
[2020-05-19 05:43] LABS: Differential Indicated SCAN CRITERIA MET; White Blood Count 31.8 K/mm3 (4.4-11.0)
[2020-05-19 05:55] LABS: Prothrombin Time (Protime)PT. 34.6 SECONDS (11.7-14.9)
[2020-05-19 06:00] LABS: International Normalized Ratio 3.5
[2020-05-19 06:10] LABS: ALB/GLOB Ratio 0.4 RATIO (0.9-2.4); AST(SGOT) 34 U/L (15-37); Alanine Aminotransfer ALT/SGPT 53 U/L (16-61); Albumin, Serum 2.1 g/dL (3.2-5.0); Alkaline Phosphatase 89 U/L (45-117); Anion Gap 8 (5-15); BUN 21 mg/dL (7-18); Calcium,Total 8.5 mg/dL (8.5-10.1); Chloride 101 mmol/L (98-107); Creatinine, Serum 0.58 mg/dL (0.70-1.30); EST Glomerular Filtration Rate 149 mL/min (>60); Est Glom Filt Rate - Afr Amer 180 mL/min (>60); Glucose 120 mg/dL (74-106); Potassium 4.5 mmol/L (3.5-5.1); Protein, Total 7.1 g/dL (6.4-8.2); Sodium Level 135 mmol/L (136-145)
[2020-05-19 06:12] LABS: Differential Comment SCANNED
--- NOTE | 2020-05-19 08:19 | PCM.PN.HOSP ---
Patient Problems: Active and Suspected Problems Hypoxemia (Acute) Pneumonia due to COVID-19 virus (Acute) Sepsis due to pneumonia (Acute) Reason for Visit: Follow-up on hypoxia/acute COVID-19 pneumonia Subjective: Patient was seen and examined. He feels improved. Currently on 6 L of oxygen. No other acute events overnight. Objective: Physical exam: General: Alert, Oriented x3, Cooperative HEENT: Atraumatic, PERRLA, EOMI, Normocephalic Neck: Supple, No JVD, Negative Carotid Bruits Lungs: - - Diminished breath sounds bibasally. No wheezes or crackles. On 8L of oxygen by nasal canula Cardiovascular: Regular rate, Regular Rhythm, Normal S1, Normal S2, No murmurs Abdomen: Bowel Sounds Present, Soft, Non Tender Extremities: No edema, Capillary Refill Less than 3 Seconds Skin: No rashes, No breakdown Musculoskeletal: No Tenderness to Palpation of Joints or Extremities Lymphatic: No Cervical, Supraclavicular, or Inguinal Adenopathy Neurological: Cranial nerves II-XII grossly intact, Neuro grossly intact, Motor Exam 5/5 strength throughout Psych/Mental Status: Normal Affect, Appropriate, Alert and oriented to time, place, person, mood and affect Vitals/I&O's: Vital Signs Temp Pulse Resp BP Pulse Ox 97.0 F L 70 19 H 126/87 H 94 05/19/20 05:58 05/19/20 05:58 05/19/20 05:58 05/19/20 05:58 05/19/20 05:58 Oxygen Flow Rate (L/min) 6 Oxygen Delivery Method Nasal Cannula Weight: 90.945 kg Body Mass Index (BMI) 31.4 Intake and Output for Last 24 Hours 05/17/20 05/18/20 05/19/20 23:59 23:59 23:59 Intake Total 1680 / 1680 2100 / 2100 60 / 60 Output Total 1850 / 1850 1175 / 1175 275 / 275 Balance -170 / -170 925 / 925 -215 / -215 Microbiology Past 72 Hours 05/16/20 21:15 Sputum, Expectorated/Coughed Gram Stain - Final 05/16/20 21:15 Sputum, Expectorated/Coughed Respiratory Culture - Preliminary Presumptive C albicans 05/14/20 10:20 Blood Culture (Wb) - Left Hand Blood Culture - Preliminary No growth in 48 hours. 05/14/20 10:16 Blood Culture (Wb) - Anticubital Left Blood Culture - Preliminary No growth in 48 hours. Laboratory Results 05/19/20 05:00: WBC 31.8 H*, RBC 4.30 L, Hgb 12.0 L, Hct 37.6 L, MCV 87.4, MCH 27.9, MCHC 31.9 L, RDW Std Deviation 47.9 H, RDW Coeff of Diogo 14.9 H, Plt Count 306, MPV 10.1, Immature Gran % (Auto) 0.400, Neut % (Auto) 24.6 L, Lymph % (Auto) 74.4 H, [place] % (Auto) 0.5, Eos % (Auto) 0.0, Baso % (Auto) 0.1, Absolute Neuts (auto) 7.8 H, Absolute Lymphs (auto) 23.68 H, Nucleated RBC % 0, Differential Comment SCANNED, Diff Path Review November05/19/20 05:00: PT 34.6 H, INR 3.5 H* 05/19/20 05:00: Sodium 135 L, Potassium 4.5, Chloride 101, Carbon Dioxide 26.0, Anion Gap 8, BUN 21 H, Creatinine 0.58 L, Estim Creat Clear Calc 120.30, Est GFR (MDRD) Af Amer 180, Est GFR (MDRD) Non-Af 149, BUN/Creatinine Ratio 36.0 H, Glucose 120 H, Calcium 8.5, Total Bilirubin 0.40, AST 34, ALT 53, Alkaline Phosphatase 89, Total Protein 7.1, Albumin 2.1 L, Globulin 5.0 H, Albumin/Globulin Ratio 0.4 L Current Medications Acetaminophen (Acetaminophen 325 Mg Tablet) 650 mg PO Q6H PRN PRN PRN Reason: Pain Score 1-10/Temp > 100.7 F Last Admin: 05/18/20 03:58 Dose: 650 mg Documented by: Albuterol/Ipratropium (Ipratropium/Albuterol Sulfate 3 Ml Ampul.Neb) 3 ml INHALATION Q6H.RT [facility] Last Admin: 05/18/20 13:01 Dose: 3 ml Documented by: Dexamethasone (Dexamethasone 4 Mg Tablet) 6 mg PO DAILY@0800 [facility] Stop: 05/23/20 08:01 Last Admin: 05/18/20 08:24 Dose: 6 mg Documented by: Famotidine (Famotidine 20 Mg Tablet) 20 mg PO BID [facility] Last Admin: 05/18/20 22:25 Dose: 20 mg Documented by: Sodium Chloride () 250 mls @ 15 mls/hr IV .[id number] PRN PRN Reason: Saline Flush Sodium Chloride () 250 mls @ 15 mls/hr IV .[id number] PRN PRN Reason: Additional IVPB Infusion Metoprolol Tartrate (Metoprolol Tartrate 50 Mg Tablet) 50 mg PO BID [facility] Last Admin: 05/18/20 22:25 Dose: 50 mg Documented by: Nitroglycerin (Nitroglycerin (Inpatient Use) 0.4 Mg Tab.Subl) 0.4 mg SUBLINGUAL Q5M PRN PRN Reason: CARDIAC/CHEST PAIN Ondansetron HCl (Ondansetron 4 Mg/2 Ml Vial) 4 mg IV Q8H PRN PRN PRN Reason: NAUSEA/VOMITING Sodium Chloride (0.9% Saline Lock 10 Ml Syringe) 10 - 40 ml IV UD PRN PRN Reason: SALINE FLUSH Last Admin: 05/15/20 05:10 Dose: 20 ml Documented by: Warfarin Sodium (Warfarin 7.5 Mg Tablet) 7.5 mg PO DAILY@2200 [facility] Last Admin: 05/16/20 09:36 Dose: Not Given Documented by: STROKE Vital Signs/Narrative: Vital Signs Temp Pulse Resp BP Pulse Ox 05/19/20 05:58 97.0 F L 70 19 H 126/87 H 94 Medical Necessity - Tobacco Use Smoking Status: Never smoker Assessment/Plan All Active Problems Hypoxemia (Acute) Pneumonia due to COVID-19 virus (Acute) Sepsis due to pneumonia (Acute) Chest pain, midsternal (Acute) 1. Acute hypoxic respiratory failure secondary to acute COVID-19 pneumonia Continue with breathing treatments, po steroids, encourage use of incentive spirometer. Wean off oxygen for SPO2 more than 94% 2. Acute COVID-19 pneumonia hypoxia, minimally improved Continue on Decadron ID and pulmonary following 3. Supratherapeutic INR, INR of 3.5, history of left lower extremity DVT, Coumadin on hold Repeat INR in a.m. ' 4. TOÑO on CPAP 5. CLL, follows with oncology in the outpatient 6. DVT prophylaxis?INR is supratherapeutic Inpatient E&M: 06652 Subs Hosp L2
[2020-05-19] MEDS: dexAMETHasone 4 MG Tablet 6 MG PO (09:16)
[2020-05-19] MEDS: Metoprolol Tartrate 50 MG Tablet PO ×2 (09:16→21:04)
[2020-05-19] MEDS: Famotidine 20 MG Tablet PO ×2 (09:16→21:04)
--- NOTE | 2020-05-19 17:16 | PCM.PN.ID ---
Patient Problems: Active and Suspected Problems Hypoxemia (Acute) Pneumonia due to COVID-19 virus (Acute) Sepsis due to pneumonia (Acute) Subjective: Feeling much better, no fever, no n/v/d - Physical Exam Vitals/I&O's: Vital Signs Temp Pulse Resp BP Pulse Ox 96.6 F L 73 18 133/87 H 96 05/19/20 15:15 05/19/20 15:15 05/19/20 15:15 05/19/20 15:15 05/19/20 15:15 Oxygen Flow Rate (L/min) 6 Oxygen Delivery Method Nasal Cannula Weight: 90.945 kg Body Mass Index (BMI) 31.4 Intake and Output for Last 24 Hours 05/17/20 05/18/20 05/19/20 23:59 23:59 23:59 Intake Total 1680 / 1680 2100 / 2100 660 / 660 Output Total 1850 / 1850 1175 / 1175 475 / 475 Balance -170 / -170 925 / 925 185 / 185 General: Alert, Cooperative, No apparent distress Lungs: Clear to auscultation, Diminished Cardiovascular: Regular rate, Regular Rhythm Abdomen: Soft, Non Tender, Non-Distended Skin: No rashes Microbiology Past 72 Hours 05/14/20 10:20 Blood Culture (Wb) - Left Hand Blood Culture - Final No growth in 5 days. 05/14/20 10:16 Blood Culture (Wb) - Anticubital Left Blood Culture - Final No growth in 5 days. 05/16/20 21:15 Sputum, Expectorated/Coughed Gram Stain - Final 05/16/20 21:15 Sputum, Expectorated/Coughed Respiratory Culture - Final Presumptive C albicans Laboratory Results 05/19/20 05:00: WBC 31.8 H*, RBC 4.30 L, Hgb 12.0 L, Hct 37.6 L, MCV 87.4, MCH 27.9, MCHC 31.9 L, RDW Std Deviation 47.9 H, RDW Coeff of Diogo 14.9 H, Plt Count 306, MPV 10.1, Immature Gran % (Auto) 0.400, Neut % (Auto) 24.6 L, Lymph % (Auto) 74.4 H, [place] % (Auto) 0.5, Eos % (Auto) 0.0, Baso % (Auto) 0.1, Absolute Neuts (auto) 7.8 H, Absolute Lymphs (auto) 23.68 H, Nucleated RBC % 0, Differential Comment SCANNED, Diff Path Review November05/19/20 05:00: PT 34.6 H, INR 3.5 H* 05/19/20 05:00: Sodium 135 L, Potassium 4.5, Chloride 101, Carbon Dioxide 26.0, Anion Gap 8, BUN 21 H, Creatinine 0.58 L, Estim Creat Clear Calc 120.30, Est GFR (MDRD) Af Amer 180, Est GFR (MDRD) Non-Af 149, BUN/Creatinine Ratio 36.0 H, Glucose 120 H, Calcium 8.5, Total Bilirubin 0.40, AST 34, ALT 53, Alkaline Phosphatase 89, Total Protein 7.1, Albumin 2.1 L, Globulin 5.0 H, Albumin/Globulin Ratio 0.4 L Current Medications Acetaminophen (Acetaminophen 325 Mg Tablet) 650 mg PO Q6H PRN PRN PRN Reason: Pain Score 1-10/Temp > 100.7 F Last Admin: 05/18/20 03:58 Dose: 650 mg Documented by: Albuterol/Ipratropium (Ipratropium/Albuterol Sulfate 3 Ml Ampul.Neb) 3 ml INHALATION Q6H.RT [facility] Last Admin: 05/18/20 13:01 Dose: 3 ml Documented by: Dexamethasone (Dexamethasone 4 Mg Tablet) 6 mg PO DAILY@0800 [facility] Stop: 05/23/20 08:01 Last Admin: 05/19/20 09:16 Dose: 6 mg Documented by: Famotidine (Famotidine 20 Mg Tablet) 20 mg PO BID [facility] Last Admin: 05/19/20 09:16 Dose: 20 mg Documented by: Sodium Chloride () 250 mls @ 15 mls/hr IV .[id number] PRN PRN Reason: Saline Flush Sodium Chloride () 250 mls @ 15 mls/hr IV .[id number] PRN PRN Reason: Additional IVPB Infusion Metoprolol Tartrate (Metoprolol Tartrate 50 Mg Tablet) 50 mg PO BID [facility] Last Admin: 05/19/20 09:16 Dose: 50 mg Documented by: Nitroglycerin (Nitroglycerin (Inpatient Use) 0.4 Mg Tab.Subl) 0.4 mg SUBLINGUAL Q5M PRN PRN Reason: CARDIAC/CHEST PAIN Ondansetron HCl (Ondansetron 4 Mg/2 Ml Vial) 4 mg IV Q8H PRN PRN PRN Reason: NAUSEA/VOMITING Sodium Chloride (0.9% Saline Lock 10 Ml Syringe) 10 - 40 ml IV UD PRN PRN Reason: SALINE FLUSH Last Admin: 05/15/20 05:10 Dose: 20 ml Documented by: Warfarin Sodium (Warfarin 7.5 Mg Tablet) 7.5 mg PO DAILY@2200 [facility] Last Admin: 05/16/20 09:36 Dose: Not Given Documented by: Medical Necessity - Tobacco Use Smoking Status: Never smoker Route of nutrition/ use of supplements: [] Nutritional Intake: [] IV Site: [] Wang Catheter: [] - Assessment/Plan Antibiotics: [] Assessment/Plan: [] Active and Suspected Problems Hypoxemia (Acute) Pneumonia due to COVID-19 virus (Acute) Sepsis due to pneumonia (Acute) covid with hypoxia - reports 12 days of symptoms on presentation. Cont dex. O2 much improved. Feeling better, but still high wbc. Will follow
[2020-05-20] VITALS (16 sets, daily range): BP systolic 116–142; BP diastolic 71–91; PULSE 60–100; RESP 16–20; TEMP 35.3–36.1; O2SAT 88–95
[2020-05-20 06:07] LABS: Absolute Neutrophil Count 6.3 X10^3/uL (2.0-7.7); Basophil# 0.07 X10^3/uL; Basophil% 0.2 % (0-1); Hematocrit 39.1 % (40-54); Hemoglobin 12.4 g/dL (13.0-16.5); Lymphocyte % 79.9 % (19-41); Mean Corp Hgb Conc 31.7 g/dL (32-36); Mean Corpuscular Hgb 27.9 pg (27.0-32.0); Mean Corpuscular Volume 87.9 fL (80-94); Mean Platelet Vol. 10.4 fl (6.2-12.0); Monocyte# 0.21 X10^3/uL; Monocyte% 0.6 % (0-10); NRBC Flagged by Analyzer 0 % (0-5); Neutrophil # 6.33 X10^3/uL (2.7-7.7); POSITIVE COUNT YES; POSITIVE DIFFERENTIAL YES; POSITIVE MORPHOLOGY YES; Platelet Count 364 K/mm3 (150-450); RBC Distribution Width CV 14.9 % (11.6-14.6); RBC Distribution Width SD 47.8 fl (35.1-43.9); Red Blood Count 4.45 M/mm3 (4.6-6.2)
[2020-05-20 06:12] LABS: Differential Indicated SCAN CRITERIA MET
[2020-05-20 06:13] LABS: White Blood Count 33.4 K/mm3 (4.4-11.0)
[2020-05-20 06:26] LABS: Prothrombin Time (Protime)PT. 30.6 SECONDS (11.7-14.9)
[2020-05-20 06:48] LABS: Differential Comment SCANNED
[2020-05-20 06:59] LABS: ALB/GLOB Ratio 0.4 RATIO (0.9-2.4); AST(SGOT) 38 U/L (15-37); Alanine Aminotransfer ALT/SGPT 82 U/L (16-61); Alkaline Phosphatase 88 U/L (45-117); Anion Gap 4 (5-15); BUN 25 mg/dL (7-18); BUN/Creat Ratio 41.8 RATIO (10-20); Chloride 105 mmol/L (98-107); EST Glomerular Filtration Rate 145 mL/min (>60); Est Glom Filt Rate - Afr Amer 175 mL/min (>60); Estimated Creatinine Clearance 116.29 ml/min; Globulin 4.9 g/dL (2.2-4.2); Glucose 116 mg/dL (74-106); Potassium 4.5 mmol/L (3.5-5.1); Protein, Total 6.9 g/dL (6.4-8.2); Sodium Level 135 mmol/L (136-145)
[2020-05-20] MEDS: dexAMETHasone 4 MG Tablet 6 MG PO (09:26)
[2020-05-20] MEDS: Famotidine 20 MG Tablet PO ×2 (09:27→21:57)
[2020-05-20] MEDS: Metoprolol Tartrate 50 MG Tablet PO ×2 (09:27→21:57)
[2020-05-20 09:33] LABS: Pathologist Review Reviewed
[2020-05-20 09:33] LABS: Pathologist Review Reviewed
[2020-05-20 09:33] LABS: Pathologist Review Reviewed
[2020-05-20 09:48] LABS: Pathologist Review Reviewed
--- NOTE | 2020-05-20 15:27 | PN_ITS ---
Patient Problems: Active and Suspected Problems Hypoxemia (Acute) Pneumonia due to COVID-19 virus (Acute) Sepsis due to pneumonia (Acute) Reason for Visit: Follow-up on hypoxia/acute COVID-19 pneumonia Subjective: Patient was seen and examined. On 9 L of oxygen. No other acute events overnight. Denies any fever or chills Objective: Physical exam: General: Alert, Oriented x3, Cooperative HEENT: Atraumatic, PERRLA, EOMI, Normocephalic Neck: Supple, No JVD, Negative Carotid Bruits Lungs: - - Diminished breath sounds bibasally. No wheezes or crackles. On 8L of oxygen by nasal canula Cardiovascular: Regular rate, Regular Rhythm, Normal S1, Normal S2, No murmurs Abdomen: Bowel Sounds Present, Soft, Non Tender Extremities: No edema, Capillary Refill Less than 3 Seconds Skin: No rashes, No breakdown Musculoskeletal: No Tenderness to Palpation of Joints or Extremities Lymphatic: No Cervical, Supraclavicular, or Inguinal Adenopathy Neurological: Cranial nerves II-XII grossly intact, Neuro grossly intact, Motor Exam 5/5 strength throughout Psych/Mental Status: Normal Affect, Appropriate, Alert and oriented to time, place, person, mood and affect Vitals/I&O's: Vital Signs Temp Pulse Resp BP Pulse Ox 97.0 F L 73 18 121/81 H 94 05/20/20 13:15 05/20/20 13:15 05/20/20 13:15 05/20/20 13:15 05/20/20 13:15 Oxygen Flow Rate (L/min) 9 Oxygen Delivery Method Nasal Cannula Weight: 90.945 kg Body Mass Index (BMI) 31.4 Intake and Output for Last 24 Hours 05/18/20 05/19/20 05/20/20 23:59 23:59 23:59 Intake Total 2100 / 2100 660 / 810 270 / 270 Output Total 1175 / 1175 475 / 925 650 / 650 Balance 925 / 925 185 / -115 -380 / -380 Microbiology Past 72 Hours 05/14/20 10:20 Blood Culture (Wb) - Left Hand Blood Culture - Final No growth in 5 days. 05/14/20 10:16 Blood Culture (Wb) - Anticubital Left Blood Culture - Final No growth in 5 days. 05/16/20 21:15 Sputum, Expectorated/Coughed Gram Stain - Final 05/16/20 21:15 Sputum, Expectorated/Coughed Respiratory Culture - Final Presumptive C albicans Laboratory Results 05/16/20 06:20: Diff Path Review Reviewed 05/17/20 08:42: Diff Path Review Reviewed 05/18/20 05:49: Diff Path Review Reviewed 05/19/20 05:00: Diff Path Review Reviewed 05/20/20 05:45: WBC 33.4 H*, RBC 4.45 L, Hgb 12.4 L, Hct 39.1 L, MCV 87.9, MCH 27.9, MCHC 31.7 L, RDW Std Deviation 47.8 H, RDW Coeff of Diogo 14.9 H, Plt Count 364, MPV 10.4, Immature Gran % (Auto) 0.300, Neut % (Auto) 19.0 L, Lymph % (Auto) 79.9 H, [place] % (Auto) 0.6, Eos % (Auto) 0.0, Baso % (Auto) 0.2, Absolute Neuts (auto) 6.3, Absolute Lymphs (auto) 26.70 H, Nucleated RBC % 0, Differential Comment SCANNED, Diff Path Review May foll 05/20/20 05:45: PT 30.6 H, INR 3.0 05/20/20 05:45: Sodium 135 L, Potassium 4.5, Chloride 105, Carbon Dioxide 26.0, Anion Gap 4 L, BUN 25 H, Creatinine 0.60 L, Estim Creat Clear Calc 116.29, Est GFR (MDRD) Af Amer 175, Est GFR (MDRD) Non-Af 145, BUN/Creatinine Ratio 41.8 H, Glucose 116 H, Calcium 9.0, Total Bilirubin 0.40, AST 38 H, ALT 82 H, Alkaline Phosphatase 88, Total Protein 6.9, Albumin 2.0 L, Globulin 4.9 H, Albumin/Globulin Ratio 0.4 L Current Medications Acetaminophen (Acetaminophen 325 Mg Tablet) 650 mg PO Q6H PRN PRN PRN Reason: Pain Score 1-10/Temp > 100.7 F Last Admin: 05/18/20 03:58 Dose: 650 mg Documented by: Albuterol/Ipratropium (Ipratropium/Albuterol Sulfate 3 Ml Ampul.Neb) 3 ml INHALATION Q6H.RT [facility] Last Admin: 05/18/20 13:01 Dose: 3 ml Documented by: Dexamethasone (Dexamethasone 4 Mg Tablet) 6 mg PO DAILY@0800 [facility] Stop: 05/23/20 08:01 Last Admin: 05/20/20 09:26 Dose: 6 mg Documented by: Famotidine (Famotidine 20 Mg Tablet) 20 mg PO BID [facility] Last Admin: 05/20/20 09:27 Dose: 20 mg Documented by: Sodium Chloride () 250 mls @ 15 mls/hr IV .[id number] PRN PRN Reason: Saline Flush Sodium Chloride () 250 mls @ 15 mls/hr IV .[id number] PRN PRN Reason: Additional IVPB Infusion Metoprolol Tartrate (Metoprolol Tartrate 50 Mg Tablet) 50 mg PO BID [facility] Last Admin: 05/20/20 09:27 Dose: 50 mg Documented by: Nitroglycerin (Nitroglycerin (Inpatient Use) 0.4 Mg Tab.Subl) 0.4 mg SUBLINGUAL Q5M PRN PRN Reason: CARDIAC/CHEST PAIN Ondansetron HCl (Ondansetron 4 Mg/2 Ml Vial) 4 mg IV Q8H PRN PRN PRN Reason: NAUSEA/VOMITING Sodium Chloride (0.9% Saline Lock 10 Ml Syringe) 10 - 40 ml IV UD PRN PRN Reason: SALINE FLUSH Last Admin: 05/15/20 05:10 Dose: 20 ml Documented by: Sodium Chloride (Sodium Chloride 0.65% 1 [place].Btl) 2 spray NASAL TID PRN PRN PRN Reason: NASAL DRYNESS Warfarin Sodium (Warfarin 7.5 Mg Tablet) 7.5 mg PO DAILY@2200 [facility] Last Admin: 05/16/20 09:36 Dose: Not Given Documented by: STROKE Vital Signs/Narrative: Vital Signs Temp Pulse Resp BP Pulse Ox 05/20/20 13:15 97.0 F L 73 18 121/81 H 94 Medical Necessity - Tobacco Use Smoking Status: Never smoker Assessment/Plan All Active Problems Hypoxemia (Acute) Pneumonia due to COVID-19 virus (Acute) Sepsis due to pneumonia (Acute) Chest pain, midsternal (Acute) 1. Acute hypoxic respiratory failure secondary to acute COVID-19 pneumonia On 9L oxygen. Continue with breathing treatments, po steroids, encourage use of incentive spirometer. Wean off oxygen for SPO2 more than 94% 2. Acute COVID-19 pneumonia hypoxia, minimally improved Continue on Decadron ID and pulmonary following 3. Supratherapeutic INR, INR of 3.0, history of left lower extremity DVT, Coumadin on hold Repeat INR in a.m. 4. TOÑO on CPAP 5. CLL, follows with oncology in the outpatient 6. DVT prophylaxis?INR is supratherapeutic Inpatient E&M: 99853 Subs Hosp L2
[2020-05-20] MEDS: Sodium Chloride 0.65% 1 SPRAY SPRAY.BTL 2 SPRAY NASAL ×2 (17:41→21:59)
[2020-05-21] VITALS (12 sets, daily range): BP systolic 123–138; BP diastolic 79–96; PULSE 62–86; RESP 16–18; TEMP 36–36.6; O2SAT 92–96
[2020-05-21 06:16] LABS: Absolute Lymphocyte Count 36.71 X10^3/uL (0.83-4.51); Absolute Neutrophil Count 6.5 X10^3/uL (2.0-7.7); Basophil# 0.08 X10^3/uL; Basophil% 0.2 % (0-1); Hematocrit 39.6 % (40-54); Hemoglobin 12.5 g/dL (13.0-16.5); Lymphocyte # 36.71 X10^3/ul (4.0); Lymphocyte % 83.2 % (19-41); Mean Corp Hgb Conc 31.6 g/dL (32-36); Mean Corpuscular Hgb 28.1 pg (27.0-32.0); Monocyte# 0.67 X10^3/uL; Monocyte% 1.5 % (0-10); NRBC Flagged by Analyzer 0 % (0-5); Neutrophil # 6.46 X10^3/uL (2.7-7.7); Neutrophil % 14.6 % (47-70); POSITIVE COUNT YES; POSITIVE DIFFERENTIAL YES; POSITIVE MORPHOLOGY YES; Platelet Count 353 K/mm3 (150-450); RBC Distribution Width CV 14.7 % (11.6-14.6); RBC Distribution Width SD 47.4 fl (35.1-43.9); Red Blood Count 4.45 M/mm3 (4.6-6.2)
[2020-05-21 06:26] LABS: White Blood Count 44.1 K/mm3 (4.4-11.0)
[2020-05-21 06:27] LABS: Differential Indicated SCAN CRITERIA MET
[2020-05-21 06:35] LABS: International Normalized Ratio 2.3; Prothrombin Time (Protime)PT. 24.8 SECONDS (11.7-14.9)
[2020-05-21 06:52] LABS: Atypical Lymphocyte RARE %; Differential Comment SCANNED
[2020-05-21 06:57] LABS: ALB/GLOB Ratio 0.4 RATIO (0.9-2.4); AST(SGOT) 44 U/L (15-37); Alanine Aminotransfer ALT/SGPT 126 U/L (16-61); Alkaline Phosphatase 100 U/L (45-117); Anion Gap 7 (5-15); BUN 21 mg/dL (7-18); BUN/Creat Ratio 36.1 RATIO (10-20); Calcium,Total 8.6 mg/dL (8.5-10.1); Chloride 102 mmol/L (98-107); Creatinine, Serum 0.58 mg/dL (0.70-1.30); EST Glomerular Filtration Rate 150 mL/min (>60); Est Glom Filt Rate - Afr Amer 181 mL/min (>60); Globulin 4.9 g/dL (2.2-4.2); Glucose 89 mg/dL (74-106); Potassium 4.4 mmol/L (3.5-5.1); Protein, Total 6.9 g/dL (6.4-8.2); Sodium Level 135 mmol/L (136-145)
--- NOTE | 2020-05-21 07:52 | PN_ITS ---
Patient Problems: Active and Suspected Problems Hypoxemia (Acute) Pneumonia due to COVID-19 virus (Acute) Sepsis due to pneumonia (Acute) Reason for Visit: Follow-up on hypoxia/acute COVID-19 pneumonia Subjective: Patient was seen and examined. No new events. Denies fever or chills. Objective: Physical exam: General: Alert, Oriented x3, Cooperative HEENT: Atraumatic, PERRLA, EOMI, Normocephalic Neck: Supple, No JVD, Negative Carotid Bruits Lungs: - - Diminished breath sounds bibasally. No wheezes or crackles. On 8L of oxygen by nasal canula Cardiovascular: Regular rate, Regular Rhythm, Normal S1, Normal S2, No murmurs Abdomen: Bowel Sounds Present, Soft, Non Tender Extremities: No edema, Capillary Refill Less than 3 Seconds Skin: No rashes, No breakdown Musculoskeletal: No Tenderness to Palpation of Joints or Extremities Lymphatic: No Cervical, Supraclavicular, or Inguinal Adenopathy Neurological: Cranial nerves II-XII grossly intact, Neuro grossly intact, Motor Exam 5/5 strength throughout Psych/Mental Status: Normal Affect, Appropriate, Alert and oriented to time, place, person, mood and affect Vitals/I&O's: Vital Signs Temp Pulse Resp BP Pulse Ox 97.1 F L 70 18 123/85 H 92 05/21/20 03:32 05/21/20 03:32 05/21/20 03:32 05/21/20 03:32 05/21/20 07:30 Oxygen Flow Rate (L/min) 7 Oxygen Delivery Method Nasal Cannula Weight: 90.945 kg Body Mass Index (BMI) 31.4 Intake and Output for Last 24 Hours 05/19/20 05/20/20 05/21/20 23:59 23:59 23:59 Intake Total 660 / 810 1030 / 1030 200 / 200 Output Total 475 / 925 1650 / 1650 500 / 500 Balance 185 / -115 -620 / -620 -300 / -300 Microbiology Past 72 Hours 05/14/20 10:20 Blood Culture (Wb) - Left Hand Blood Culture - Final No growth in 5 days. 05/14/20 10:16 Blood Culture (Wb) - Anticubital Left Blood Culture - Final No growth in 5 days. 05/16/20 21:15 Sputum, Expectorated/Coughed Gram Stain - Final 05/16/20 21:15 Sputum, Expectorated/Coughed Respiratory Culture - Final Presumptive C albicans Laboratory Results 05/16/20 06:20: Diff Path Review Reviewed 05/17/20 08:42: Diff Path Review Reviewed 05/18/20 05:49: Diff Path Review Reviewed 05/19/20 05:00: Diff Path Review Reviewed 05/21/20 05:40: WBC 44.1 H*, RBC 4.45 L, Hgb 12.5 L, Hct 39.6 L, MCV 89.0, MCH 28.1, MCHC 31.6 L, RDW Std Deviation 47.4 H, RDW Coeff of Diogo 14.7 H, Plt Count 353, MPV 10.0, Immature Gran % (Auto) 0.500, Neut % (Auto) 14.6 L, Lymph % (Auto) 83.2 H, [place] % (Auto) 1.5, Eos % (Auto) 0.0, Baso % (Auto) 0.2, Absolute Neuts (auto) 6.5, Absolute Lymphs (auto) 36.71 H, Nucleated RBC % 0, Differential Comment SCANNED, Diff Path Review May foll, Atypical Lymphocytes RARE 05/21/20 05:40: PT 24.8 H, INR 2.3 05/21/20 05:40: Sodium 135 L, Potassium 4.4, Chloride 102, Carbon Dioxide 26.0, Anion Gap 7, BUN 21 H, Creatinine 0.58 L, Estim Creat Clear Calc 120.30, Est GFR (MDRD) Af Amer 181, Est GFR (MDRD) Non-Af 150, BUN/Creatinine Ratio 36.1 H, Glucose 89, Calcium 8.6, Total Bilirubin 0.70, AST 44 H, ALT 126 H, Alkaline Phosphatase 100, Total Protein 6.9, Albumin 2.0 L, Globulin 4.9 H, Albumin/Globulin Ratio 0.4 L Current Medications Acetaminophen (Acetaminophen 325 Mg Tablet) 650 mg PO Q6H PRN PRN PRN Reason: Pain Score 1-10/Temp > 100.7 F Last Admin: 05/18/20 03:58 Dose: 650 mg Documented by: Albuterol/Ipratropium (Ipratropium/Albuterol Sulfate 3 Ml Ampul.Neb) 3 ml INHALATION Q6H.RT JOSHUA Last Admin: 05/18/20 13:01 Dose: 3 ml Documented by: Dexamethasone (Dexamethasone 4 Mg Tablet) 6 mg PO DAILY@0800 [facility] Stop: 05/23/20 08:01 Last Admin: 05/20/20 09:26 Dose: 6 mg Documented by: Famotidine (Famotidine 20 Mg Tablet) 20 mg PO BID [facility] Last Admin: 05/20/20 21:57 Dose: 20 mg Documented by: Sodium Chloride () 250 mls @ 15 mls/hr IV .[id number] PRN PRN Reason: Saline Flush Sodium Chloride () 250 mls @ 15 mls/hr IV .[id number] PRN PRN Reason: Additional IVPB Infusion Metoprolol Tartrate (Metoprolol Tartrate 50 Mg Tablet) 50 mg PO BID [facility] Last Admin: 05/20/20 21:57 Dose: 50 mg Documented by: Nitroglycerin (Nitroglycerin (Inpatient Use) 0.4 Mg Tab.Subl) 0.4 mg SUBLINGUAL Q5M PRN PRN Reason: CARDIAC/CHEST PAIN Ondansetron HCl (Ondansetron 4 Mg/2 Ml Vial) 4 mg IV Q8H PRN PRN PRN Reason: NAUSEA/VOMITING Sodium Chloride (0.9% Saline Lock 10 Ml Syringe) 10 - 40 ml IV UD PRN PRN Reason: SALINE FLUSH Last Admin: 05/15/20 05:10 Dose: 20 ml Documented by: Sodium Chloride (Sodium Chloride 0.65% 1 [place].Btl) 2 spray NASAL TID PRN PRN PRN Reason: NASAL DRYNESS Last Admin: 05/20/20 21:59 Dose: 2 spray Documented by: Warfarin Sodium (Warfarin 7.5 Mg Tablet) 7.5 mg PO DAILY@2200 [facility] Last Admin: 05/16/20 09:36 Dose: Not Given Documented by: STROKE Vital Signs/Narrative: Vital Signs Pulse Ox 05/21/20 07:30 92 Medical Necessity - Tobacco Use Smoking Status: Never smoker Assessment/Plan All Active Problems Hypoxemia (Acute) Pneumonia due to COVID-19 virus (Acute) Sepsis due to pneumonia (Acute) Chest pain, midsternal (Acute) 1. Acute hypoxic respiratory failure secondary to acute COVID-19 pneumonia On 8L oxygen. Continue with breathing treatments, po steroids, encourage use of incentive spirometer. Wean off oxygen for SPO2 more than 94% 2. Acute COVID-19 pneumonia hypoxia, minimally improved Continue on Decadron ID and pulmonary following 3. Supratherapeutic INR, resolved INR is 2.3. Patient with history of left lower extremity DVT, Will resume Coumadin Repeat INR in a.m. 4. TOÑO on CPAP 5. CLL, follows with oncology in the outpatient 6. DVT prophylaxis?INR is supratherapeutic Inpatient E&M: 65757 Subs Hosp L2
[2020-05-21] MEDS: Famotidine 20 MG Tablet PO ×2 (09:24→21:00)
[2020-05-21] MEDS: Metoprolol Tartrate 50 MG Tablet PO ×2 (09:24→21:00)
[2020-05-21] MEDS: dexAMETHasone 4 MG Tablet 6 MG PO (09:24)
[2020-05-21] MEDS: Sodium Chloride 0.65% 1 SPRAY SPRAY.BTL 2 SPRAY NASAL (09:26)
[2020-05-21 12:52] LABS: Pathologist Review Reviewed
[2020-05-21 12:54] LABS: Pathologist Review Reviewed
[2020-05-22] VITALS (16 sets, daily range): BP systolic 126–133; BP diastolic 77–88; PULSE 65–99; RESP 16–22; TEMP 35.8–36.7; O2SAT 92–96
[2020-05-22] MEDS: Sodium Chloride 0.65% 1 SPRAY SPRAY.BTL 2 SPRAY NASAL (05:35)
[2020-05-22 06:50] LABS: Absolute Lymphocyte Count 45.03 X10^3/uL (0.83-4.51); Absolute Neutrophil Count 8.4 X10^3/uL (2.0-7.7); Basophil# 0.07 X10^3/uL; Basophil% 0.1 % (0-1); Eosinophil# 0.02 X10^3/uL; Hematocrit 38.7 % (40-54); Hemoglobin 12.1 g/dL (13.0-16.5); Lymphocyte # 45.03 X10^3/ul (4.0); Lymphocyte % 81.8 % (19-41); Mean Corp Hgb Conc 31.3 g/dL (32-36); Mean Corpuscular Hgb 27.3 pg (27.0-32.0); Mean Corpuscular Volume 87.2 fL (80-94); Mean Platelet Vol. 9.7 fl (6.2-12.0); Monocyte# 1.25 X10^3/uL; Monocyte% 2.3 % (0-10); NRBC Flagged by Analyzer 0 % (0-5); Neutrophil # 8.38 X10^3/uL (2.7-7.7); Neutrophil % 15.3 % (47-70); POSITIVE COUNT YES; POSITIVE DIFFERENTIAL YES; POSITIVE MORPHOLOGY YES; Platelet Count 265 K/mm3 (150-450); RBC Distribution Width CV 14.8 % (11.6-14.6); RBC Distribution Width SD 47.1 fl (35.1-43.9); Red Blood Count 4.44 M/mm3 (4.6-6.2)
[2020-05-22 06:57] LABS: Differential Indicated SCAN CRITERIA MET
[2020-05-22 06:59] LABS: International Normalized Ratio 2.1; Prothrombin Time (Protime)PT. 22.7 SECONDS (11.7-14.9)
[2020-05-22] MEDS: Ipratropium/Albuterol Sulfate 3 ML AMPUL.NEB INHALATION ×2 (07:26→19:38)
[2020-05-22 07:27] LABS: ALB/GLOB Ratio 0.4 RATIO (0.9-2.4); AST(SGOT) 21 U/L (15-37); Alanine Aminotransfer ALT/SGPT 99 U/L (16-61); Alkaline Phosphatase 106 U/L (45-117); Anion Gap 4 (5-15); BUN 21 mg/dL (7-18); BUN/Creat Ratio 34.6 RATIO (10-20); Chloride 103 mmol/L (98-107); Creatinine, Serum 0.61 mg/dL (0.70-1.30); EST Glomerular Filtration Rate 142 mL/min (>60); Est Glom Filt Rate - Afr Amer 172 mL/min (>60); Estimated Creatinine Clearance 114.38 ml/min; Globulin 4.9 g/dL (2.2-4.2); Glucose 89 mg/dL (74-106); Potassium 4.5 mmol/L (3.5-5.1); Protein, Total 6.9 g/dL (6.4-8.2); Sodium Level 135 mmol/L (136-145)
--- NOTE | 2020-05-22 08:04 | PN_ITS ---
Patient Problems: Active and Suspected Problems Hypoxemia (Acute) Pneumonia due to COVID-19 virus (Acute) Sepsis due to pneumonia (Acute) Reason for Visit: Follow-up on hypoxia/acute COVID-19 pneumonia Subjective: Patient was seen and examined. No new events. Denies fever or chills. Objective: Physical exam: General: Alert, Oriented x3, Cooperative HEENT: Atraumatic, PERRLA, EOMI, Normocephalic Neck: Supple, No JVD, Negative Carotid Bruits Lungs: - - Diminished breath sounds bibasally. No wheezes or crackles. On 8L of oxygen by nasal canula Cardiovascular: Regular rate, Regular Rhythm, Normal S1, Normal S2, No murmurs Abdomen: Bowel Sounds Present, Soft, Non Tender Extremities: No edema, Capillary Refill Less than 3 Seconds Skin: No rashes, No breakdown Musculoskeletal: No Tenderness to Palpation of Joints or Extremities Lymphatic: No Cervical, Supraclavicular, or Inguinal Adenopathy Neurological: Cranial nerves II-XII grossly intact, Neuro grossly intact, Motor Exam 5/5 strength throughout Psych/Mental Status: Normal Affect, Appropriate, Alert and oriented to time, place, person, mood and affect Vitals/I&O's: Vital Signs Temp Pulse Resp BP Pulse Ox 97.0 F L 92 22 H 133/88 H 92 05/22/20 05:33 05/22/20 07:26 05/22/20 07:26 05/22/20 05:33 05/22/20 07:20 Oxygen Flow Rate (L/min) 7 Oxygen Delivery Method Nasal Cannula Weight: 90.945 kg Body Mass Index (BMI) 31.4 Intake and Output for Last 24 Hours 05/20/20 05/21/20 05/22/20 23:59 23:59 23:59 Intake Total 1030 / 1030 1360 / 1360 500 / 500 Output Total 1650 / 1650 2200 / 2200 Balance -620 / -620 -840 / -840 500 / 500 Microbiology Past 72 Hours 05/14/20 10:20 Blood Culture (Wb) - Left Hand Blood Culture - Final No growth in 5 days. 05/14/20 10:16 Blood Culture (Wb) - Anticubital Left Blood Culture - Final No growth in 5 days. 05/16/20 21:15 Sputum, Expectorated/Coughed Gram Stain - Final 05/16/20 21:15 Sputum, Expectorated/Coughed Respiratory Culture - Final Presumptive C albicans Laboratory Results 05/20/20 05:45: Diff Path Review Reviewed 05/21/20 05:40: Diff Path Review Reviewed 05/22/20 06:00: WBC 55.0 H*, RBC 4.44 L, Hgb 12.1 L, Hct 38.7 L, MCV 87.2, MCH 27.3, MCHC 31.3 L, RDW Std Deviation 47.1 H, RDW Coeff of Diogo 14.8 H, Plt Count 265, MPV 9.7, Immature Gran % (Auto) 0.500, Neut % (Auto) 15.3 L, Lymph % (Auto) 81.8 H, [place] % (Auto) 2.3, Eos % (Auto) 0.0, Baso % (Auto) 0.1, Absolute Neuts (auto) 8.4 H, Absolute Lymphs (auto) 45.03 H, Nucleated RBC % 0 05/22/20 06:00: PT 22.7 H, INR 2.1 05/22/20 06:00: Sodium 135 L, Potassium 4.5, Chloride 103, Carbon Dioxide 28.0, Anion Gap 4 L, BUN 21 H, Creatinine 0.61 L, Estim Creat Clear Calc 114.38, Est GFR (MDRD) Af Amer 172, Est GFR (MDRD) Non-Af 142, BUN/Creatinine Ratio 34.6 H, Glucose 89, Calcium 9.0, Total Bilirubin 0.40, AST 21, ALT 99 H, Alkaline Phosphatase 106, Total Protein 6.9, Albumin 2.0 L, Globulin 4.9 H, Albumin/Globulin Ratio 0.4 L 05/22/20 06:00: Procalcitonin Pending Current Medications Acetaminophen (Acetaminophen 325 Mg Tablet) 650 mg PO Q6H PRN PRN PRN Reason: Pain Score 1-10/Temp > 100.7 F Last Admin: 05/18/20 03:58 Dose: 650 mg Documented by: Albuterol/Ipratropium (Ipratropium/Albuterol Sulfate 3 Ml Ampul.Neb) 3 ml INHALATION Q6H.RT JOSHUA Last Admin: 05/22/20 07:26 Dose: 3 ml Documented by: Dexamethasone (Dexamethasone 4 Mg Tablet) 6 mg PO DAILY@0800 [facility] Stop: 05/23/20 08:01 Last Admin: 05/21/20 09:24 Dose: 6 mg Documented by: Famotidine (Famotidine 20 Mg Tablet) 20 mg PO BID [facility] Last Admin: 05/21/20 21:00 Dose: 20 mg Documented by: Sodium Chloride () 250 mls @ 15 mls/hr IV .[id number] PRN PRN Reason: Saline Flush Sodium Chloride () 250 mls @ 15 mls/hr IV .[id number] PRN PRN Reason: Additional IVPB Infusion Metoprolol Tartrate (Metoprolol Tartrate 50 Mg Tablet) 50 mg PO BID [facility] Last Admin: 05/21/20 21:00 Dose: 50 mg Documented by: Nitroglycerin (Nitroglycerin (Inpatient Use) 0.4 Mg Tab.Subl) 0.4 mg SUBLINGUAL Q5M PRN PRN Reason: CARDIAC/CHEST PAIN Ondansetron HCl (Ondansetron 4 Mg/2 Ml Vial) 4 mg IV Q8H PRN PRN PRN Reason: NAUSEA/VOMITING Sodium Chloride (0.9% Saline Lock 10 Ml Syringe) 10 - 40 ml IV UD PRN PRN Reason: SALINE FLUSH Last Admin: 05/15/20 05:10 Dose: 20 ml Documented by: Sodium Chloride (Sodium Chloride 0.65% 1 [place].Btl) 2 spray NASAL TID PRN PRN PRN Reason: NASAL DRYNESS Last Admin: 05/22/20 05:35 Dose: 2 spray Documented by: Warfarin Sodium (Warfarin 7.5 Mg Tablet) 7.5 mg PO DAILY@2200 [facility] Last Admin: 05/21/20 23:23 Dose: 7.5 mg Documented by: STROKE Vital Signs/Narrative: Vital Signs Temp Pulse Resp BP Pulse Ox 05/22/20 07:26 92 22 H 05/22/20 07:20 92 05/22/20 07:00 78 05/22/20 05:33 97.0 F L 68 18 133/88 H 94 Medical Necessity - Tobacco Use Smoking Status: Never smoker Assessment/Plan All Active Problems Hypoxemia (Acute) Pneumonia due to COVID-19 virus (Acute) Sepsis due to pneumonia (Acute) Chest pain, midsternal (Acute) 1. Acute hypoxic respiratory failure secondary to acute COVID-19 pneumonia, minimally improved On 4L oxygen. Continue with breathing treatments, po steroids, encourage use of incentive spirometer. Wean off oxygen for SPO2 more than 94% 2. Acute COVID-19 pneumonia hypoxia, minimally improved Continue on Decadron ID and pulmonary following 3. Supratherapeutic INR, resolved INR is 2.1. Patient with history of left lower extremity DVT, Continue on coumadin Repeat INR in a.m. 4. TOÑO on CPAP 5. CLL, follows with oncology in the outpatient 6. DVT prophylaxis? on coumadin Inpatient E&M: [id number] Subs Hosp L2
[2020-05-22 08:23] LABS: Differential Comment SCANNED; Reactive Lymphocyte 2+
[2020-05-22] MEDS: Metoprolol Tartrate 50 MG Tablet PO ×2 (09:01→21:08)
[2020-05-22] MEDS: Famotidine 20 MG Tablet PO ×2 (09:01→21:08)
[2020-05-22] MEDS: dexAMETHasone 4 MG Tablet 6 MG PO (09:01)
[2020-05-22 10:31] LABS: Procalcitonin 0.06 ng/mL (0.00-0.09)
[2020-05-22 13:47] LABS: Pathologist Review Reviewed
[2020-05-23] VITALS (9 sets, daily range): BP systolic 110–140; BP diastolic 80; PULSE 65–93; RESP 16–18; TEMP 36.4; O2SAT 85–93
[2020-05-23 06:03] LABS: Absolute Lymphocyte Count 48.65 X10^3/uL (0.83-4.51); Absolute Neutrophil Count 8.5 X10^3/uL (2.0-7.7); Basophil# 0.03 X10^3/uL; Basophil% 0.1 % (0-1); Eosinophil# 0.01 X10^3/uL; Hematocrit 36.9 % (40-54); Hemoglobin 11.7 g/dL (13.0-16.5); Lymphocyte # 48.65 X10^3/ul (4.0); Lymphocyte % 82.3 % (19-41); Mean Corp Hgb Conc 31.7 g/dL (32-36); Mean Corpuscular Hgb 28.2 pg (27.0-32.0); Mean Corpuscular Volume 88.9 fL (80-94); Mean Platelet Vol. 10.4 fl (6.2-12.0); Monocyte# 1.54 X10^3/uL; Monocyte% 2.6 % (0-10); NRBC Flagged by Analyzer 0 % (0-5); Neutrophil # 8.46 X10^3/uL (2.7-7.7); Neutrophil % 14.3 % (47-70); POSITIVE COUNT YES; POSITIVE DIFFERENTIAL YES; POSITIVE MORPHOLOGY YES; Platelet Count 236 K/mm3 (150-450); RBC Distribution Width CV 14.8 % (11.6-14.6); RBC Distribution Width SD 47.8 fl (35.1-43.9); Red Blood Count 4.15 M/mm3 (4.6-6.2)
[2020-05-23 06:10] LABS: Differential Indicated SCAN CRITERIA MET
[2020-05-23 06:12] LABS: White Blood Count 59.1 K/mm3 (4.4-11.0)
[2020-05-23 06:33] LABS: ALB/GLOB Ratio 0.4 RATIO (0.9-2.4); AST(SGOT) 16 U/L (15-37); Alanine Aminotransfer ALT/SGPT 78 U/L (16-61); Albumin, Serum 1.9 g/dL (3.2-5.0); Alkaline Phosphatase 100 U/L (45-117); Anion Gap 4 (5-15); BUN 22 mg/dL (7-18); BUN/Creat Ratio 38.6 RATIO (10-20); Calcium,Total 8.6 mg/dL (8.5-10.1); Chloride 105 mmol/L (98-107); Creatinine, Serum 0.57 mg/dL (0.70-1.30); EST Glomerular Filtration Rate 153 mL/min (>60); Est Glom Filt Rate - Afr Amer 185 mL/min (>60); Estimated Creatinine Clearance 122.41 ml/min; Globulin 4.6 g/dL (2.2-4.2); Glucose 108 mg/dL (74-106); Potassium 4.6 mmol/L (3.5-5.1); Protein, Total 6.5 g/dL (6.4-8.2); Sodium Level 137 mmol/L (136-145)
[2020-05-23 06:50] LABS: Differential Comment SCANNED
[2020-05-23 06:51] LABS: Reactive Lymphocyte 2+
[2020-05-23 08:56] LABS: International Normalized Ratio 2.6; Prothrombin Time (Protime)PT. 27.4 SECONDS (11.7-14.9)
[2020-05-23] MEDS: dexAMETHasone 4 MG Tablet 6 MG PO (09:15)
[2020-05-23] MEDS: Famotidine 20 MG Tablet PO (09:15)
[2020-05-23] MEDS: Metoprolol Tartrate 50 MG Tablet PO (09:16)
--- NOTE | 2020-05-23 11:09 | CASEMGMT ---
Addendum entered by Melody Mao 05/23/20 12:30: Pt will need 3liters with exertion at this time and script faxed to [facility] [place] [facility]. Call to Karina at [facility] to notify of referral and discharge, voices understanding. Pt voices no further questions/concerns/needs at this time. Heath SAMANIEGO CM Original Note: Per therapy, pt does not need any further therapy at this time and pt states the same via phone at this time. Pt will qualify for home oxygen at discharge and pt states he would like [facility] for home oxygen at this time. Awaiting testing to be charted and then this ADEN HERNANDEZ will fax oxygen qualification info/script to [facility] at that time. Heath SAMANIEGO CM
--- NOTE | 2020-05-23 13:26 | DCINST_ITS ---
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 Continue to use your oxygen all the time. Be careful of going near open flames whilst on oxygen. Do not smoke whilst on oxygen. Continue to use your incentive spirometer. Continue to remain active and eat healthy. Let your doctor know if you develop fever >101.3F or have progressive worsening shortness of breath. Follow-up with your primary care doctor and also with pulmonology to have your continued oxygen use reevaluated. Continue to have your INR reevaluated within 3 days. Allergies/Adverse Reactions: Allergies No Known Allergies Allergy (Verified 05/14/20 09:41) Medications to take at Discharge Warfarin [Coumadin] 7.5 mg PO DAILY 02/06/20 metoprolol tartrate 50 mg tablet 50 mg PO BID #180 tab 03/20/20 Acetaminophen [Tylenol Tablet] 650 mg PO Q6H PRN PRN tablet 05/23/20 Primary Care Physician: Roderick Saleh MD [Primary Care Provider] - Please follow up with your Primary Care Physician in: within 2 weeks Test Results: Test results from this visit will be discussed in further detail at your follow- up appointment, if applicable. When: Follow-up with your oncologist as scheduled Please Follow Up With: Shree Grajeda MD When: in 2 weeks Proposed Discharge Date: 05/23/20
--- NOTE | 2020-05-23 13:29 | DS.PCM_ITS ---
Discharge Date and Diagnosis - Problem List Patient Problems: Active and Suspected Problems Hypoxemia (Acute) Pneumonia due to COVID-19 virus (Acute) Sepsis due to pneumonia (Acute) Date of Admission: 05/14/20 Date of Discharge: 05/23/20 - Primary Discharge Diagnosis Acute Problems: Active Problems Acute hypoxic respiratory failure Acute COVID-19 pneumonia Supratherapeutic INR - Secondary Discharge Diagnosis Chronic Problems: Chronic Problems TOÑO (obstructive sleep apnea) (Chronic) Thromboembolism (Chronic) CLL (chronic lymphocytic leukemia) (Chronic) Cardiac murmur (Chronic) Deep vein thrombosis (DVT) of left lower extremity (Chronic) Hospital Course and Treatment Imaging Results: Clinical Impression(s) from Imaging Studies Chest X-Ray 05/14/20 09:57 IMPRESSION: Multifocal airspace opacities (potential infectious etiology) Electronically Signed: Marc Leo DO at 11:02 EST Tel , Service support , ID Operations: None Procedures: None Summary of Care Provided: The patient is a 65 year old M with PMHx of CLL and TOÑO, DVT of lower extremity who comes in with progressive shortness of breath, chest tightness and fever. Patient had an outpatient positive COVID-19 test 5 days prior to admission had been isolating at home. He decided to come to the hospital when his shortness of breath was progressing. He was found to be saturating 88% on room air at rest. His white cell count was chronically elevated. Chest x-ray showed multifocal airspace opacity. He was admitted to the Covid floor. He was continued on his Coumadin. His Coumadin became supratherapeutic and was held for couple of days. Patient received Decadron. ID was consulted. It was felt that patient would not benefit from plasma or remdesivir. He completed 10 days of steroids whilst in the hospital. Patient continued to slowly improve. He was found to require oxygen at discharge. He was discharged on 3 L of oxygen. He will follow-up with his primary care doctor. Patient Problems: Active and Suspected Problems Hypoxemia (Acute) Pneumonia due to COVID-19 virus (Acute) Sepsis due to pneumonia (Acute) Subjective: On the day of discharge, patient was seen and examined. He felt much improved. He is on 3L oxygen and required 3L oxygen also on ambulation. Denies any fever or chills. Rest of ROS is negative. Objective: Physical exam: General: Alert, Oriented x3, Cooperative, on 3L HEENT: Atraumatic, PERRLA, EOMI, Normocephalic Neck: Supple, No JVD, Negative Carotid Bruits Lungs: - - Diminished breath sounds bi-basally. Cardiovascular: Regular rate, Regular Rhythm, Normal S1, Normal S2, No murmurs Abdomen: Bowel Sounds Present, Soft, Non Tender Extremities: No edema, Capillary Refill Less than 3 Seconds Skin: No rashes, No breakdown Musculoskeletal: No Tenderness to Palpation of Joints or Extremities Lymphatic: No Cervical, Supraclavicular, or Inguinal Adenopathy Neurological: Cranial nerves II-XII grossly intact, Neuro grossly intact, Motor Exam 5/5 strength throughout Psych/Mental Status: Normal Affect, Appropriate, Alert and oriented to time, place, person, mood and affect - Physical Exam Vitals/I&O's: Vital Signs Temp Pulse Resp BP Pulse Ox 97.6 F L 90 18 110/80 90 05/23/20 08:35 05/23/20 09:16 05/23/20 08:35 05/23/20 09:16 05/23/20 11:49 Oxygen Flow Rate (L/min) [ 3 AMBULATION with Oxygen] Oxygen Flow Rate (L/min) [ 0 AMBULATING on Room Air] Oxygen Flow Rate (L/min) [At 0 REST on Room Air] Oxygen Flow Rate (L/min) 2 Oxygen Delivery Method Nasal Cannula Weight: 90.945 kg Body Mass Index (BMI) 31.4 Intake and Output for Last 24 Hours 05/21/20 05/22/20 05/23/20 23:59 23:59 23:59 Intake Total 1360 / 1360 500 / 620 720 / 720 Output Total 2200 / 2200 100 / 100 600 / 600 Balance -840 / -840 400 / 520 120 / 120 Laboratory Results 05/22/20 06:00: Diff Path Review Reviewed 05/23/20 05:38: WBC 59.1 H*, RBC 4.15 L, Hgb 11.7 L, Hct 36.9 L, MCV 88.9, MCH 28.2, MCHC 31.7 L, RDW Std Deviation 47.8 H, RDW Coeff of Diogo 14.8 H, Plt Count 236, MPV 10.4, Immature Gran % (Auto) 0.700, Neut % (Auto) 14.3 L, Lymph % (Auto) 82.3 H, [place] % (Auto) 2.6, Eos % (Auto) 0.0, Baso % (Auto) 0.1, Absolute Neuts (auto) 8.5 H, Absolute Lymphs (auto) 48.65 H, Nucleated RBC % 0, Differential Comment SCANNED, Diff Path Review May foll, Reactive Lymphocytes 2+ 05/23/20 05:38: Sodium 137, Potassium 4.6, Chloride 105, Carbon Dioxide 28.0, Anion Gap 4 L, BUN 22 H, Creatinine 0.57 L, Estim Creat Clear Calc 122.41, Est GFR (MDRD) Af Amer 185, Est GFR (MDRD) Non-Af 153, BUN/Creatinine Ratio 38.6 H, Glucose 108 H, Calcium 8.6, Total Bilirubin 0.30, AST 16, ALT 78 H, Alkaline Phosphatase 100, Total Protein 6.5, Albumin 1.9 L, Globulin 4.6 H, Albumin/Globulin Ratio 0.4 L 05/23/20 08:15: PT 27.4 H, INR 2.6 Current Medications Acetaminophen (Acetaminophen 325 Mg Tablet) 650 mg PO Q6H PRN PRN PRN Reason: Pain Score 1-10/Temp > 100.7 F Last Admin: 05/18/20 03:58 Dose: 650 mg Documented by: Albuterol/Ipratropium (Ipratropium/Albuterol Sulfate 3 Ml Ampul.Neb) 3 ml INHALATION Q6H.RT [facility] Last Admin: 05/22/20 19:38 Dose: 3 ml Documented by: Famotidine (Famotidine 20 Mg Tablet) 20 mg PO BID [facility] Last Admin: 05/23/20 09:15 Dose: 20 mg Documented by: Sodium Chloride () 250 mls @ 15 mls/hr IV .[id number] PRN PRN Reason: Saline Flush Sodium Chloride () 250 mls @ 15 mls/hr IV .[id number] PRN PRN Reason: Additional IVPB Infusion Metoprolol Tartrate (Metoprolol Tartrate 50 Mg Tablet) 50 mg PO BID [facility] Last Admin: 11/13/20 09:16 Dose: 50 mg Documented by: Nitroglycerin (Nitroglycerin (Inpatient Use) 0.4 Mg Tab.Subl) 0.4 mg SUBLINGUAL Q5M PRN PRN Reason: CARDIAC/CHEST PAIN Ondansetron HCl (Ondansetron 4 Mg/2 Ml Vial) 4 mg IV Q8H PRN PRN PRN Reason: NAUSEA/VOMITING Sodium Chloride (0.9% Saline Lock 10 Ml Syringe) 10 - 40 ml IV UD PRN PRN Reason: SALINE FLUSH Last Admin: 05/15/20 05:10 Dose: 20 ml Documented by: Sodium Chloride (Sodium Chloride 0.65% 1 [place].Btl) 2 spray NASAL TID PRN PRN PRN Reason: NASAL DRYNESS Last Admin: 05/22/20 05:35 Dose: 2 spray Documented by: Warfarin Sodium (Warfarin 7.5 Mg Tablet) 7.5 mg PO DAILY@2200 [facility] Last Admin: 05/22/20 21:08 Dose: 7.5 mg Documented by: Discharge Diet: Low fat/ Low Cholesterol, 2000 mg Sodium Diet Discharge Activity: Return to Normal Activity Home Medications: Medications to take at Discharge Warfarin [Coumadin] 7.5 mg PO DAILY 02/06/20 metoprolol tartrate 50 mg tablet 50 mg PO BID #180 tab 03/20/20 Acetaminophen [Tylenol Tablet] 650 mg PO Q6H PRN PRN tab 05/23/20 Primary Care Physician: Roderick Saleh MD [Primary Care Provider] - Please follow up with your Primary Care Physician in: within 2 weeks When: Follow-up with your oncologist as scheduled Please Follow Up With: Shree Grajeda MD When: in 2 weeks Disposition: Home Minutes spent on discharge:: 40 Patient Condition:: Stable Medical Necessity - Tobacco Use Smoking Status: Never smoker Tobacco Use: Non-smoker Meaningful Use Info Meaningful Use Diagnoses (Choose all that apply): None applicable Inpatient E&M: 28181 Disch Hosp
--- NOTE | 2020-05-23 13:49 | PHA.DC.MR ---
Pharmacy Service has performed discharge medication reconciliation for this patient. No new home prescription meds at time of discharge review. medications reviewed are previously reported home medications. Home Medications Warfarin [Coumadin] 7.5 mg PO DAILY 02/06/20 metoprolol tartrate 50 mg tablet 50 mg PO BID #180 tab 03/20/20 Acetaminophen [Tylenol Tablet] 650 mg PO Q6H PRN PRN tab 05/23/20 The patient's discharge medication list was reviewed for discrepancies and discrepancies were resolved.
[2020-05-23 13:51] LABS: Pathologist Review Reviewed
--- NOTE | 2020-05-27 15:01 | CASEMGMT ---
ADEN HERNANDEZ Discharge Follow-up Phone Call: ESE: Luis Eduardo Strata: 3 Call Date: 05/27/20 Discharge Date: 05/23/20 Time of Call: 1500 Duration: 5 min Admitting Diagnosis: Covid 19 infection ADEN HERNANDEZ completed follow-up phone call after recent hospitalization. Patient states he is doing better and not needing oxygen during the day as his SPO2 is 95% on room air per patient. Patient had no questions or concerns regarding discharge instructions. Patient inquired if he is considered contagious anymore. ADEN HERNANDEZ instructed patient to continue to isolate and to inquire with PCP at appt on 05/28/20 for further instructions regarding isolation. Patient voiced understanding and had no further questions or concerns at this time.
== END 2020-05-23 16:08 | disposition home or self-care (01) | DRG 177 ==
LOC: ED 10:58 → PCU 13:07
PROVIDERS: Family Medicine; Internal Medicine Infectious Disease; Admitting Provider Student in an Organized Health Care Education/Training Program; Emergency Provider Emergency Medicine; PCP Family Medicine; Visit Provider Internal Medicine
DX: U07.1 COVID-19 (principal); J12.89 Other viral pneumonia; J96.01 Acute respiratory failure with hypoxia; C91.10 Chronic lymphocytic leukemia of B-cell type not having achieved remission; G47.33 Obstructive sleep apnea (adult) (pediatric); R01.1 Cardiac murmur, unspecified; R79.1 Abnormal coagulation profile; Z86.718 Personal history of other venous thrombosis and embolism; Z79.01 Long term (current) use of anticoagulants
CPT/HCPCS: 36415; 71045; 80048; 80053; 83605; 83735; 83880; 84145; 84484; 85025; 85379; 85610; 87040; 87070; 87205; 87449; 94640; 97162; 97165; 99285; J7030; A4216; J1940

== ENCOUNTER → 2020-06-26 09:23 | Outpatient (CLI) | payer SELFPAY ==
[2020-06-13 08:36] VITALS: BMI 32.1
--- NOTE | 2020-06-26 09:27 | VDLE_ITS ---
Reason For Study: Leg swelling RIGHT GSV is normal. CFV is compressible, spontaneous, phasic, competent and demonstrates normal augmentation. FV is compressible, spontaneous, phasic, competent and demonstrates normal augmentation. POP V is compressible, spontaneous, phasic, competent and demonstrates normal augmentation. T/P Trunk is compressible. PTV is compressible. RT PerV is compressible. Acute deep vein thrombosis is noted in the right soleus vein. Procedure This is a venous duplex using B-mode, color flow and spectral Doppler. Exam performed in department. A preliminary report was called and/or faxed to Tasha SAMANIEGO. Interpretation Summary Acute deep vein thrombosis is noted in the right soleus vein. The remainder of the right lower extremity deep venous system is patent and compressible. Valvular competence appears intact within the proximal deep venous system on the right . The right great saphenous vein appears patent and compressible segmentally. Ordering Physician: Leonardo Ortega Referring Physician: Roderick Saleh Performed By: Melody Spear RVT
== END ==
PROVIDERS: PCP Family Medicine; Referring Provider Internal Medicine Hematology & Oncology; Visit Provider Internal Medicine Hematology & Oncology
DX: I82.461 Acute embolism and thrombosis of right calf muscular vein (principal); I82.5Y2 Chronic embolism and thrombosis of unspecified deep veins of left proximal lower extremity
CPT/HCPCS: 93971